=== PATIENT | male | born 1950 | race American Indian/Alaskan Native ===

== ENCOUNTER 2020-06-15 10:06 | Emergency (ER) | payer MEDICARE, MEDICAID ==
--- NOTE | 2020-06-15 10:21 | Emergency Department Report ---
ED Male HPI - General Stated complaint: BLOOD IN URINE Time Seen by Provider: 06/15/20 10:16 Source: patient - History of Present Illness Initial comments: 69-year-old male, history of CHF, prostate enlargement, chronic indwelling Lord, presents to ED with difficulty urinating. Patient states his Lord catheter stopped draining urine. He feels as if his bladder is full. Patient states he normally gets his catheter changed every month, however this Lord catheter has been in for 2 months. Patient states his urologist is at [place]. Patient also reports some hematuria for the last 2 to 3 days. MD Complaint: other -: This morning Severity: moderate Quality: aching Consistency: constant Improves with: none Worsens with: none blood in urine - Related Data Previous Rx's Medication Instructions Recorded Last Taken Type Acetaminophen/Codeine [Tylenol 1 tab PO Q6H PRN #14 tablet 06/13/19 Unknown Rx /Codeine # 3 tab] Furosemide [Lasix TAB] 40 mg PO QDAY #30 tablet 06/13/19 Unknown Rx Isosorb Dinit/Hydralazine [Bidil 1 each PO Q8HR #90 tablet 06/13/19 Unknown Rx 20/37.5MG] Sitagliptin Phosphate [Januvia] 100 mg PO DAILY #30 tablet 06/13/19 Unknown Rx Tamsulosin [Flomax] 0.4 mg PO QDAY #90 cap 06/13/19 Unknown Rx carvediloL [Coreg] 3.125 mg PO BID #60 tablet 06/13/19 Unknown Rx metFORMIN XR [Glucophage XR] 500 mg PO QDDIAB #30 tablet 06/13/19 Unknown Rx Ciprofloxacin HCl [Ciprofloxacin 500 mg PO Q12HR 5 Days #10 tab 06/15/20 Unknown Rx TAB] Phenazopyridine [Pyridium] 200 mg PO TID #6 tab 06/15/20 Unknown Rx Allergies Allergy/AdvReac Type Severity Reaction Status Date / Time No Known Allergies Allergy Verified 06/11/19 13:59 ED Review of Systems ROS: Stated complaint: BLOOD IN URINE Other details as noted in HPI Comment: All other systems reviewed and negative Constitutional: denies: fever Gastrointestinal: abdominal pain Genitourinary: as per HPI, hematuria ED Past Medical Hx - Past Medical History Hx Hypertension: Yes Hx Diabetes: Yes (IDDM) - Surgical History Additional Surgical History: Removal of left great toe toenail 06/06/2019 - Social History Smoking Status: Never Smoker Substance Use Type: None - Medications Home Medications: Home Medications Medication Instructions Recorded Confirmed Last Taken Type Acetaminophen/Codeine [Tylenol 1 tab PO Q6H PRN #14 tablet 06/13/19 Unknown Rx /Codeine # 3 tab] Furosemide [Lasix TAB] 40 mg PO QDAY #30 tablet 06/13/19 Unknown Rx Isosorb Dinit/Hydralazine [Bidil 1 each PO Q8HR #90 tablet 06/13/19 Unknown Rx 20/37.5MG] Sitagliptin Phosphate [Januvia] 100 mg PO DAILY #30 tablet 06/13/19 Unknown Rx Tamsulosin [Flomax] 0.4 mg PO QDAY #90 cap 06/13/19 Unknown Rx carvediloL [Coreg] 3.125 mg PO BID #60 tablet 06/13/19 Unknown Rx metFORMIN XR [Glucophage XR] 500 mg PO QDDIAB #30 tablet 06/13/19 Unknown Rx Ciprofloxacin HCl [Ciprofloxacin 500 mg PO Q12HR 5 Days #10 tab 06/15/20 Unknown Rx TAB] Phenazopyridine [Pyridium] 200 mg PO TID #6 tab 06/15/20 Unknown Rx ED Physical Exam - General General appearance: alert, other (Appears uncomfortable) - Head Head exam: Present: atraumatic, normocephalic - Eye Eye exam: Present: normal appearance - ENT ENT exam: Present: mucous membranes moist - Neck Neck exam: Present: normal inspection - Respiratory Respiratory exam: Present: normal lung sounds bilaterally. Absent: respiratory distress - Cardiovascular Cardiovascular Exam: Present: regular rate, normal rhythm - GI/Abdominal GI/Abdominal exam: Present: soft, tenderness (Suprapubic) - exam: Present: other (Lord catheter in place, appears old and discolored; bladder feels distended) - Extremities Exam Extremities exam: Present: normal inspection - Neurological Exam Neurological exam: Present: alert, oriented X3 - Psychiatric Psychiatric exam: Present: normal affect, normal mood - Skin Skin exam: Present: warm, dry, intact, normal color ED Course Vital Signs 06/15/20 06/15/20 06/15/20 10:08 10:46 11:16 Temperature 97.9 F Pulse Rate 100 H Respiratory 18 18 18 Rate Blood Pressure 173/80 [Right] O2 Sat by Pulse 100 Oximetry 06/15/20 06/15/20 06/15/20 11:51 12:21 13:47 Temperature Pulse Rate 87 98 H Respiratory 18 18 18 Rate Blood Pressure 141/79 176/85 [Right] O2 Sat by Pulse 99 100 100 Oximetry ED Medical Decision Making - Lab Data Result diagrams: 06/15/20 13:38 06/15/20 13:38 - Medical Decision Making 350 cc out w/ initialy changing of Lord catheter; another 400 cc now in Lord bag IV fluids and rocephin given Pt making and draining urine No obstruction Will try outpt abx therapy Advise outpt urology f/u Critical care attestation.: If time is entered above; I have spent that time in minutes in the direct care of this critically ill patient, excluding procedure time. ED Disposition Clinical Impression: Hemorrhagic cystitis Disposition: DC-01 TO HOME OR SELFCARE Is pt being admited?: No Condition: Stable Instructions: Hemorrhagic Cystitis, Urinary Tract Infection, Adult Prescriptions: Ciprofloxacin HCl [Ciprofloxacin TAB] 500 mg PO Q12HR 5 Days #10 tab Phenazopyridine [Pyridium] 200 mg PO TID #6 tab Referrals: PRIMARY CARE, [Primary Care Provider] - 3-5 Days Time of Disposition: 15:51
[2020-06-15] MEDS ORDERED: MORPHINE 2 MG/1 ML INJ IV ONE ×2 (10:34→15:59)
[2020-06-15 13:01] LABS: Color,Urine Red (Yellow)
[2020-06-15 13:03] LABS: Bilirubin,Urine TNR (Negative); Blood,Urine TNR (Negative); PH,Urine TNR (5.0-7.0); Protein,Urine TNR mg/dL (Negative); Urobilinogen,Urine TNR mg/dL (<2.0)
[2020-06-15 13:04] LABS: Ictotest,Urine TNR (Negative); RBC,Urine > 182.0 /HPF (0.0-6.0); WBC,Urine > 182.0 /HPF (0.0-6.0)
[2020-06-15] MEDS ORDERED: cefTRIAXone/NS 1 GM/50 ML 1 GM/50 ML BAG IV ONE (13:24)
[2020-06-15 13:52] LABS: Basophils % (Auto) 0.2 % (0.0-1.8); Eosinophils % (Auto) 0.1 % (0.0-4.3); Hematocrit 38.9 % (35.5-45.6); Hemoglobin 12.6 gm/dl (11.8-15.2); Lymphocytes # (Auto) 1.2 K/mm3 (1.2-5.4); Mean Corpuscular HGB Conc 32 % (32-34); Mean Corpuscular Volume 76 fl (84-94); Monocytes % (Auto) 9.8 % (0.0-7.3); Platelet Count 194 K/mm3 (140-440); Red Blood Count 5.13 M/mm3 (3.65-5.03); Red Cell Distribution Width 18.7 % (13.2-15.2)
[2020-06-15 14:13] LABS: Calcium 8.8 mg/dL (8.4-10.2)
[2020-06-15] MEDS ORDERED: SODIUM CHLORIDE 0.9% 1000 ML 1,000 ML IV ONE (14:16)
--- NOTE | 2020-06-15 15:26 | Cat Scan Report ---
CT ABDOMEN AND PELVIS WITHOUT CONTRAST INDICATION / CLINICAL INFORMATION: HEMATURIA. TECHNIQUE: Axial CT images were obtained through the abdomen and pelvis without IV contrast. All CT scans at [facility] location are performed using CT dose reduction for ALARA by means of automated exposure control. COMPARISON: None available. FINDINGS: LOWER CHEST: There are patchy groundglass density changes throughout the visualized lung bases. LIVER: No significant abnormality. GALLBLADDER: No significant abnormality. PANCREAS: Calcifications are seen throughout the pancreas compatible with chronic pancreatitis. SPLEEN: No significant abnormality. ADRENALS: No significant abnormality. 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 No right-sided nephroureterolithiasis or obstructive uropathy is identified. URINARY BLADDER: A Lord catheter balloon is seen within the urinary bladder. There is high dense mat erial within the urinary bladder compatible with blood products. No wall thickening or discrete mass is identified. REPRODUCTIVE ORGANS: The prostate gland is massively enlarged, measuring 7.6 x 7.6 x 10.4 cm. STOMACH / SMALL BOWEL: No significant abnormality. COLON: No significant abnormality. APPENDIX: No significant abnormality. PERITONEUM: No free fluid. No free air. No fluid collection. LYMPH NODES: No significant adenopathy. AORTA / ARTERIES: Mild atherosclerotic calcification without acute abnormality. IVC / VEINS: No significant abnormality. SKELETAL SYSTEM: No significant abnormality. ADDITIONAL FINDINGS: None. IMPRESSION: 1. High dense material within the urinary bladder lumen is most compatible with blood products. No di screte mass is seen, although cystoscopy may be helpful for further evaluation. 2. Massive prostatomegaly, measuring 10.4 cm in greatest dimension. Correlation with prostate-specifi c antigen is recommended 3. Left-sided nephrectomy changes. No right-sided nephroureterolithiasis or obstructive uropathy. 4. Punctate calcifications throughout the pancreas are compatible with chronic pancreatitis. 5. Patchy groundglass density changes within the lung bases may be chronic. However, an infectious pr ocess including viral and atypical etiologies should be considered. Signer Name: Fernando Arce MD Signed: 06/15/2020 3:21 PM Workstation Name: [id number]
[2020-06-15 16:32] VITALS: BP 159/66
== END 2020-06-15 16:32 | disposition home or self-care (01) ==
LOC: ED 10:06
DX: N30.01 Acute cystitis with hematuria (principal); I10 Essential (primary) hypertension; E11.9 Type 2 diabetes mellitus without complications; Z79.899 Other long term (current) drug therapy
CPT/HCPCS: 36415; 51702; 74176; 80048; 81001; 85025; 87086; 96365; 96375; 99284; J0696; J2270; J7030

== ENCOUNTER 2020-06-16 09:30 | Emergency (ER) | payer MEDICARE ==
--- NOTE | 2020-06-16 10:35 | Emergency Department Report ---
ED Male HPI - General Chief complaint: Urogenital-Male Stated complaint: CATHETER PAIN Time Seen by Provider: 06/16/20 10:23 Source: patient Mode of arrival: Stretcher Limitations: No Limitations - History of Present Illness Initial comments: Patient is 69 years old male brought to the emergency room via EMS for evaluation of urinary retention. Patient has history of benign prostatic hypertrophy with chronic Lord catheter. Patient stated that he was seen here yesterday and his catheter was flushed and he was sent home. He stated that he noticed that is not draining and started having urine retention. Upon arrival to the ER Lord catheter immediately flushed and irrigated by the nurse. Catheter is draining bloody urine. Patient denied any fever or chills. No nausea, vomiting. MD Complaint: other (urine retention) - Related Data Previous Rx's Medication Instructions Recorded Last Taken Type Acetaminophen/Codeine [Tylenol 1 tab PO Q6H PRN #14 tablet 06/13/19 Unknown Rx /Codeine # 3 tab] Furosemide [Lasix TAB] 40 mg PO QDAY #30 tablet 06/13/19 Unknown Rx Isosorb Dinit/Hydralazine [Bidil 1 each PO Q8HR #90 tablet 06/13/19 Unknown Rx 20/37.5MG] Sitagliptin Phosphate [Januvia] 100 mg PO DAILY #30 tablet 06/13/19 Unknown Rx Tamsulosin [Flomax] 0.4 mg PO QDAY #90 cap 06/13/19 Unknown Rx carvediloL [Coreg] 3.125 mg PO BID #60 tablet 06/13/19 Unknown Rx metFORMIN XR [Glucophage XR] 500 mg PO QDDIAB #30 tablet 06/13/19 Unknown Rx Ciprofloxacin HCl [Ciprofloxacin 500 mg PO Q12HR 5 Days #10 tab 06/15/20 Unknown Rx TAB] Phenazopyridine [Pyridium] 200 mg PO TID #6 tab 06/15/20 Unknown Rx Allergies Allergy/AdvReac Type Severity Reaction Status Date / Time No Known Allergies Allergy Verified 06/11/19 13:59 ED Review of Systems ROS: Stated complaint: CATHETER PAIN Other details as noted in HPI Comment: All other systems reviewed and negative Constitutional: denies: chills, fever Respiratory: denies: cough, shortness of breath Cardiovascular: denies: chest pain, palpitations, dyspnea on exertion Gastrointestinal: denies: abdominal pain, nausea, vomiting, diarrhea, constipation, hematemesis, hematochezia Genitourinary: hematuria. denies: testicular pain, testicular mass Musculoskeletal: denies: back pain Neurological: denies: headache, weakness, numbness, paresthesias, confusion ED Past Medical Hx - Past Medical History Hx Hypertension: Yes Hx Diabetes: Yes (IDDM) - Surgical History Additional Surgical History: Removal of left great toe toenail 06/06/2019 - Social History Smoking Status: Never Smoker Substance Use Type: None - Medications Home Medications: Home Medications Medication Instructions Recorded Confirmed Last Taken Type Acetaminophen/Codeine [Tylenol 1 tab PO Q6H PRN #14 tablet 06/13/19 Unknown Rx /Codeine # 3 tab] Furosemide [Lasix TAB] 40 mg PO QDAY #30 tablet 06/13/19 Unknown Rx Isosorb Dinit/Hydralazine [Bidil 1 each PO Q8HR #90 tablet 06/13/19 Unknown Rx 20/37.5MG] Sitagliptin Phosphate [Januvia] 100 mg PO DAILY #30 tablet 06/13/19 Unknown Rx Tamsulosin [Flomax] 0.4 mg PO QDAY #90 cap 06/13/19 Unknown Rx carvediloL [Coreg] 3.125 mg PO BID #60 tablet 06/13/19 Unknown Rx metFORMIN XR [Glucophage XR] 500 mg PO QDDIAB #30 tablet 06/13/19 Unknown Rx Ciprofloxacin HCl [Ciprofloxacin 500 mg PO Q12HR 5 Days #10 tab 06/15/20 Unknown Rx TAB] Phenazopyridine [Pyridium] 200 mg PO TID #6 tab 06/15/20 Unknown Rx ED Physical Exam - General Limitations: No Limitations General appearance: alert, in no apparent distress - Head Head exam: Present: atraumatic, normocephalic, normal inspection - Eye Eye exam: Present: normal appearance - ENT ENT exam: Present: normal exam, normal orophraynx, mucous membranes moist - Neck Neck exam: Present: normal inspection, full ROM. Absent: tenderness, meningismus - Respiratory Respiratory exam: Present: normal lung sounds bilaterally - Cardiovascular Cardiovascular Exam: Present: regular rate, normal rhythm, normal heart sounds - GI/Abdominal GI/Abdominal exam: Present: soft, distended, normal bowel sounds. Absent: tenderness, guarding, rebound, rigid, organomegaly, mass, bruit, pulsatile mass, hernia - exam: Present: normal inspection. Absent: testicular tenderness, scrotal swelling - Extremities Exam Extremities exam: Present: normal inspection, full ROM, normal capillary refill. Absent: pedal edema, calf tenderness - Back Exam Back exam: Present: normal inspection, full ROM. Absent: CVA tenderness (R), CVA tenderness (L) - Neurological Exam Neurological exam: Present: alert, oriented X3, CN II-XII intact - Skin Skin exam: Present: warm, intact ED Course Vital Signs 06/16/20 06/16/20 06/16/20 09:35 10:19 17:08 Temperature 98.2 F Pulse Rate 90 78 83 Respiratory 26 H 18 16 Rate Blood Pressure 180/93 175/82 123/69 [Right] O2 Sat by Pulse 98 98 96 Oximetry ED Medical Decision Making - Lab Data Result diagrams: 06/16/20 11:55 06/16/20 11:55 - Medical Decision Making Patient is 69 years old male brought to the emergency room via EMS for evaluation of urinary retention. Patient has history of benign prostatic hypertrophy with chronic Lord catheter. Patient stated that he was seen here yesterday and his catheter was flushed and he was sent home. He stated that he noticed that is not draining and started having urine retention. Upon arrival to the ER Lord catheter immediately flushed and irrigated by the nurse. Vicki kingston is draining bloody urine. Patient denied any fever or chills. No nausea, vomiting. Catheter has been replaced. Patient flushed with 3 Davis drip however patient still having clots causing obstruction. I discussed the patient with [facility] and stated that they do not have bed. I discussed the patient with Dr. Villarreal, urologist at [facility] and he accepted the patient to be transferred to [facility]. Critical Care Time: Yes Critical care time in (mins) excluding proc time.: 30 Critical care attestation.: If time is entered above; I have spent that time in minutes in the direct care of this critically ill patient, excluding procedure time. ED Disposition Clinical Impression: Acute urinary retention Disposition: DC/TX-70 ANOTHER TYPE [facility] Is pt being admited?: No Condition: Stable Referrals: PRIMARY CARE, [Primary Care Provider] - 3-5 Days
[2020-06-16] MEDS ORDERED: SODIUM CHLORIDE 0.9% 1000 ML 0 ML ONE (11:58)
[2020-06-16 12:09] LABS: Basophils % (Auto) 0.2 % (0.0-1.8); Eosinophils % (Auto) 0.4 % (0.0-4.3); Hematocrit 37.3 % (35.5-45.6); Lymphocytes # (Auto) 1.4 K/mm3 (1.2-5.4); Lymphocytes % (Auto) 16.4 % (13.4-35.0); Mean Corpuscular HGB Conc 32 % (32-34); Mean Corpuscular Volume 77 fl (84-94); Monocytes # (Auto) 0.8 K/mm3 (0.0-0.8); Monocytes % (Auto) 9.4 % (0.0-7.3); Platelet Count 216 K/mm3 (140-440); Red Blood Count 4.86 M/mm3 (3.65-5.03); Red Cell Distribution Width 18.5 % (13.2-15.2)
[2020-06-16 12:25] LABS: BUN/Creatinine Ratio 24; Blood Urea Nitrogen 31 mg/dL (9-20); Calcium 8.8 mg/dL (8.4-10.2); Hemolysis Index 11
[2020-06-16] MEDS ORDERED: SODIUM CHLORIDE 0.9% IRRIG SOLN 2000 ML IR SCH (13:00)
[2020-06-16] MEDS ORDERED: INSULIN REGULAR, HUMAN 100 UNITS/1 ML SUB-Q ONE (16:16)
[2020-06-16 17:10] LABS: INR 1.15 (0.87-1.13); Partial Thromboplastin Time 33.6 Sec. (24.2-36.6)
[2020-06-17] MEDS ORDERED: MORPHINE 2 MG/1 ML INJ IV ONE (09:03)
[2020-06-17] MEDS ORDERED: ONDANSETRON 4 MG/2 ML INJ IV ONE (09:03)
[2020-06-17] MEDS ORDERED: INSULIN LISPRO 100 UNIT/ML SUB-Q ONE (22:27)
[2020-06-18 00:31] VITALS: BP 125/66
== END 2020-06-18 00:53 | disposition other institution (70) ==
LOC: ED 09:30
DX: R33.9 Retention of urine, unspecified (principal); I10 Essential (primary) hypertension; E11.9 Type 2 diabetes mellitus without complications; Z79.899 Other long term (current) drug therapy
CPT/HCPCS: 36415; 51702; 80048; 85025; 85610; 85730; 96372; 96374; 96375; 99291; A4217; J2270; J2405; 82962; J1815; J7030

== ENCOUNTER 2020-07-30 06:44 | Emergency (ER) | payer MEDICARE ==
[2020-07-30] MEDS ORDERED: SODIUM CHLORIDE 0.9% IRR 1,000 ML BOTTLE IR ONE (07:45)
[2020-07-30] MEDS ORDERED: oxyCODONE /ACETAMINOPHEN 5-325MG TAB PO ONE (07:45)
--- NOTE | 2020-07-30 07:46 | Emergency Department Report ---
ED General Adult HPI - General Chief complaint: Urogenital-Male Stated complaint: BLOOD IN URINE PUI?: No Time Seen by Provider: 07/30/20 07:37 Source: patient, EMS ( EMS documentation not available at time of chart dicta tion ), RN notes reviewed, old records reviewed Mode of arrival: Wheelchair Limitations: No Limitations - History of Present Illness Initial comments: The patient was evaluated in the emergency department for symptoms described in the history of present illness. He/she was evaluated in the context of the [facility], which necessitated consideration that the patient might be at risk for infection with the virus that causes COVID-19. Institutional protocols and algorithms that pertain to the evaluation of patients at risk for COVID-19 are in a state of rapid change based on information released by regulatory bodies including the CDC and federal and state organizations. These policies and algorithms were followed during the patient's care in the emergency department. Please note that these policies, procedures and recommendations changed on a rapid basis. Urology: Dr. Mendiola This is a pleasant 70-year-old gentleman. He has a history of BPH, diabetes and hypertension, and indwelling Lord catheter. At the beginning of last month, he was transferred to [facility] for persistent hematuria. He presents to the ER today with a complaint of initially bloody drainage from his Lord catheter, and no blockage of his Lord catheter with suprapubic pressure and discomfort. He denies headache, neck pain, chest pain, shortness of breath, vomiting, diaphoresis, loss of taste and smell, and testicular pain. This is similar to prior presentation from last month. Suprapubic pain is achy and sharp, increases with palpation and decreases with rest. He is asking to have his Lord catheter drained. His symptoms have started within the past 12 hours. -: Gradual, hour(s) Location: abdomen Radiation: non-radiation Severity scale (0 -10): 10 Consistency: constant Improves with: rest Worsens with: movement - Related Data Previous Rx's Medication Instructions Recorded Last Taken Type Furosemide [Lasix TAB] 40 mg PO QDAY #30 tablet 06/13/19 Unknown Rx Isosorb Dinit/Hydralazine [Bidil 1 each PO Q8HR #90 tablet 06/13/19 Unknown Rx 20/37.5MG] Sitagliptin Phosphate [Januvia] 100 mg PO DAILY #30 tablet 06/13/19 Unknown Rx Tamsulosin [Flomax] 0.4 mg PO QDAY #90 cap 06/13/19 Unknown Rx carvediloL [Coreg] 3.125 mg PO BID #60 tablet 06/13/19 Unknown Rx metFORMIN XR [Glucophage XR] 500 mg PO QDDIAB #30 tablet 06/13/19 Unknown Rx Ciprofloxacin HCl [Ciprofloxacin 500 mg PO Q12HR 5 Days #10 tab 06/15/20 Unknown Rx TAB] Phenazopyridine [Pyridium] 200 mg PO TID #6 tab 06/15/20 Unknown Rx Magnesium Oxide 400 mg PO QDAY #30 tablet 07/30/20 Unknown Rx Allergies Allergy/AdvReac Type Severity Reaction Status Date / Time No Known Allergies Allergy Verified 06/11/19 13:59 ED Review of Systems ROS: Stated complaint: BLOOD IN URINE Other details as noted in HPI Constitutional: denies: fever Eyes: denies: eye discharge ENT: denies: congestion Respiratory: denies: cough Cardiovascular: denies: chest pain Gastrointestinal: abdominal pain. denies: nausea, vomiting Genitourinary: hematuria. denies: urgency, dysuria, frequency, testicular pain Musculoskeletal: denies: back pain Skin: denies: lesions Neurological: weakness (Global weakness, but no focal weakness) Hematological/Lymphatic: denies: easy bleeding ED Past Medical Hx - Past Medical History Previous Medical History?: Yes Hx Hypertension: Yes Hx Diabetes: Yes (IDDM) - Surgical History Past Surgical History?: Yes Additional Surgical History: Removal of left great toe toenail 06/06/2019 - Social History Smoking Status: Former Smoker Substance Use Type: None - Medications Home Medications: Home Medications Medication Instructions Recorded Confirmed Last Taken Type Furosemide [Lasix TAB] 40 mg PO QDAY #30 tablet 06/13/19 Unknown Rx Isosorb Dinit/Hydralazine [Bidil 1 each PO Q8HR #90 tablet 06/13/19 Unknown Rx 20/37.5MG] Sitagliptin Phosphate [Januvia] 100 mg PO DAILY #30 tablet 06/13/19 Unknown Rx Tamsulosin [Flomax] 0.4 mg PO QDAY #90 cap 06/13/19 Unknown Rx carvediloL [Coreg] 3.125 mg PO BID #60 tablet 06/13/19 Unknown Rx metFORMIN XR [Glucophage XR] 500 mg PO QDDIAB #30 tablet 06/13/19 Unknown Rx Ciprofloxacin HCl [Ciprofloxacin 500 mg PO Q12HR 5 Days #10 tab 06/15/20 Unknown Rx TAB] Phenazopyridine [Pyridium] 200 mg PO TID #6 tab 06/15/20 Unknown Rx Magnesium Oxide 400 mg PO QDAY #30 tablet 07/30/20 Unknown Rx ED Physical Exam - General Limitations: No Limitations General appearance: alert, anxious, in distress - Head Head exam: Present: atraumatic, normocephalic - Eye Eye exam: Present: normal appearance, EOMI. Absent: nystagmus - ENT ENT exam: Present: normal exam, normal orophraynx, mucous membranes moist, normal external ear exam - Neck Neck exam: Present: normal inspection, full ROM. Absent: tenderness, meningismus - Respiratory Respiratory exam: Present: normal lung sounds bilaterally. Absent: respiratory distress, wheezes, rales, rhonchi, stridor, decreased breath sounds - Cardiovascular Cardiovascular Exam: Present: regular rate, normal rhythm, normal heart sounds. Absent: bradycardia, tachycardia, irregular rhythm, systolic murmur, diastolic murmur, rubs, gallop - GI/Abdominal GI/Abdominal exam: Present: soft, distended (Suprapubic distention.), tenderness (Suprapubic tenderness). Absent: guarding, rebound, rigid, pulsatile mass - Rectal Rectal exam: Present: deferred - exam: Present: normal inspection. Absent: circumcision (The patient is uncircumcised) External exam: Present: normal external exam, other (Lord catheter in place, minimal bloody drainage noted in tube, and bag) - Extremities Exam Extremities exam: Present: normal inspection, full ROM, other (2+ pulses noted in the bilateral upper and lower extremities. There is no palpable cord. negative Homans sign. Muscular compartments are soft. The pelvis is stable.). Absent: pedal edema, calf tenderness - Back Exam Back exam: Present: normal inspection, full ROM. Absent: tenderness, CVA tenderness (R), muscle spasm, paraspinal tenderness, vertebral tenderness - Neurological Exam Neurological exam: Present: alert, other (No facial droop. Tongue midline. Ext raocular movements intact bilaterally. Facial sensation intact to light touch in V1, V2, V3 distribution bilaterally. 5 and a 5 strength in 4 extremities. Sensation intact to light touch in 4 extremities.). Absent: motor sensory deficit - Psychiatric Psychiatric exam: Present: anxious - Skin Skin exam: Present: warm, dry, intact, normal color. Absent: rash ED Course Vital Signs 07/30/20 07/30/20 07/30/20 06:54 07:38 07:45 Temperature 98 F Pulse Rate 89 96 H 92 H Respiratory 22 16 19 Rate Blood Pressure 128/69 Blood Pressure 114/80 [Right] O2 Sat by Pulse 100 100 Oximetry O2 Sat by Pulse Oximetry [ Digit-Finger] 07/30/20 07/30/20 07/30/20 08:01 08:09 08:15 Temperature Pulse Rate 94 H 94 H Respiratory 18 18 20 Rate Blood Pressure 128/69 164/89 Blood Pressure [Right] O2 Sat by Pulse 100 100 Oximetry O2 Sat by Pulse Oximetry [ Digit-Finger] 07/30/20 07/30/20 07/30/20 08:31 08:45 09:01 Temperature Pulse Rate 93 H 86 93 H Respiratory 12 18 17 Rate Blood Pressure 128/69 147/74 164/89 Blood Pressure [Right] O2 Sat by Pulse 91 97 96 Oximetry O2 Sat by Pulse Oximetry [ Digit-Finger] 07/30/20 07/30/20 07/30/20 09:09 09:15 09:31 Temperature Pulse Rate 91 H 91 H Respiratory 18 16 16 Rate Blood Pressure 158/88 158/88 Blood Pressure [Right] O2 Sat by Pulse 99 99 Oximetry O2 Sat by Pulse Oximetry [ Digit-Finger] 07/30/20 07/30/20 07/30/20 09:45 10:01 10:15 Temperature Pulse Rate 89 92 H 94 H Respiratory 18 16 21 Rate Blood Pressure 148/83 148/83 157/78 Blood Pressure [Right] O2 Sat by Pulse 99 98 100 Oximetry O2 Sat by Pulse Oximetry [ Digit-Finger] 07/30/20 07/30/20 07/30/20 10:31 10:45 11:01 Temperature Pulse Rate 87 80 93 H Respiratory 14 12 20 Rate Blood Pressure 157/78 128/68 128/68 Blood Pressure [Right] O2 Sat by Pulse 99 99 99 Oximetry O2 Sat by Pulse Oximetry [ Digit-Finger] 07/30/20 07/30/20 07/30/20 11:15 11:31 11:45 Temperature Pulse Rate 86 82 87 Respiratory 17 12 14 Rate Blood Pressure 150/97 150/97 135/71 Blood Pressure [Right] O2 Sat by Pulse 99 99 100 Oximetry O2 Sat by Pulse Oximetry [ Digit-Finger] 07/30/20 07/30/20 07/30/20 12:01 12:15 12:31 Temperature Pulse Rate 83 82 82 Respiratory 16 15 19 Rate Blood Pressure 135/71 131/78 131/78 Blood Pressure [Right] O2 Sat by Pulse 100 98 100 Oximetry O2 Sat by Pulse Oximetry [ Digit-Finger] 07/30/20 07/30/20 12:45 13:21 Temperature Pulse Rate 81 Respiratory 19 Rate Blood Pressure 137/73 Blood Pressure [Right] O2 Sat by Pulse 99 Oximetry O2 Sat by Pulse 99 Oximetry [ Digit-Finger] - Reevaluation(s) Reevaluation #1: 07/30/20 08:03 Differential diagnosis, including but not limited to: Hematuria, obstructive clots, hemorrhagic cystitis, electrolyte derangement, renal insufficiency Assessment and plan: 70-year-old gentleman with indwelling Lord catheter, known prostatomegaly, history of nephrectomy, left side, with recurrent hematuria, and now obstructive uropathy, likely secondary to clots. We will treat his pain and symptoms. Nursing team to irrigate Lord catheter with 1 L, and if unsuccessful, we will initiate Davis drip. Check appropriate laboratory studies and urinalysis. Recent urine culture negative. Do not suspect urinary tract infection at this time, I suspect exacerbation of underlying bladder clots and spasm. 07/30/20 08:[address] scan of the abdomen pelvis from last month reviewed and appreciated. Patient does not endorse symptoms of pneumonia or COVID-19 at this time. At this point time, do not see indication to repeat CT scan of the abdomen pelvis. 07/30/20 08:51 Nursing team has irrigated bladder approximately 1 L. Patient is now not obstructed, and is draining dark red blood from his Lord catheter, which is not clearing up. We will initiate continuous bladder irrigation. We will start Davis drip. As a courtesy, we will reach out to his primary urologist, Dr. Mendiola. Microcytic anemia, new when compared to prior, likely secondary to related bleeding. Patient is not having chest pain no rectal bleeding at this time, this point time, does not meet criteria or require packed red blood cell transfusion. 07/30/20 08:52 07/30/20 09:51 Patient now states he has not seen Dr. Mendiola as of yet, he is not an establ ished patient, and his first visit is this upcoming Sunday. Therefore, patient is not an established patient of Dr. Mendiola. I have made multiple requests to nursing team and ancillary staff to initiate Davis drip. I am still waiting for them to initiate the Davis drip. In addition, secondary to delays in the lab, basic metabolic panel has not resulted. All of these aforementioned delays have led to a delay in patient's disposition. If patient clears up with initial Davis drip, I would consider him suitable for discharge with outpatient follow-up with his urologist. If he does not clear up, as I do not have urology available for ER consultation, we would have to consider transfer to another facility for services not available at this hospital. 07/30/20 10:52 Patient is now currently on Davis drip. His hematuria appears to be clearing up. 07/30/20 11:26 Nursing team has asked me to evaluate the triple-lumen catheter, secondary to lack of flow. I have repeatedly instilled sterile saline, and gently withdrawn with a 60 cc Aly syringe, multiple times, and have evacuated multiple blood clots, and fluid from the bladder. His hematuria is now significantly clearing up, and he feels somewhat improved. 07/30/20 13:20 Hematuria has resolved. Repeat Accu-Chek is improved at 243. Patient feels improved. He is requested that the triple-lumen remain inserted, therefore, nursing team to block off 1 port, and attached leg bag to the second port. He is reliable to follow-up with his outpatient urologist next week. He is resting comfortably in his stretcher at this time in no acute distress. \ Vital Signs 07/30/20 07/30/20 07/30/20 06:54 07:38 07:45 Temperature 98 F Pulse Rate 89 96 H 92 H Respiratory 22 16 19 Rate Blood Pressure 128/69 Blood Pressure 114/80 [Right] O2 Sat by Pulse 100 100 Oximetry O2 Sat by Pulse Oximetry [ Digit-Finger] 07/30/20 07/30/20 07/30/20 08:01 08:09 08:15 Temperature Pulse Rate 94 H 94 H Respiratory 18 18 20 Rate Blood Pressure 128/69 164/89 Blood Pressure [Right] O2 Sat by Pulse 100 100 Oximetry O2 Sat by Pulse Oximetry [ Digit-Finger] 07/30/20 07/30/20 07/30/20 08:31 08:45 09:01 Temperature Pulse Rate 93 H 86 93 H Respiratory 12 18 17 Rate Blood Pressure 128/69 147/74 164/89 Blood Pressure [Right] O2 Sat by Pulse 91 97 96 Oximetry O2 Sat by Pulse Oximetry [ Digit-Finger] 07/30/20 07/30/20 07/30/20 09:09 09:15 09:31 Temperature Pulse Rate 91 H 91 H Respiratory 18 16 16 Rate Blood Pressure 158/88 158/88 Blood Pressure [Right] O2 Sat by Pulse 99 99 Oximetry O2 Sat by Pulse Oximetry [ Digit-Finger] 07/30/20 07/30/20 07/30/20 09:45 10:01 10:15 Temperature Pulse Rate 89 92 H 94 H Respiratory 18 16 21 Rate Blood Pressure 148/83 148/83 157/78 Blood Pressure [Right] O2 Sat by Pulse 99 98 100 Oximetry O2 Sat by Pulse Oximetry [ Digit-Finger] 07/30/20 07/30/20 07/30/20 10:31 10:45 11:01 Temperature Pulse Rate 87 80 93 H Respiratory 14 12 20 Rate Blood Pressure 157/78 128/68 128/68 Blood Pressure [Right] O2 Sat by Pulse 99 99 99 Oximetry O2 Sat by Pulse Oximetry [ Digit-Finger] 07/30/20 07/30/20 07/30/20 11:15 11:31 11:45 Temperature Pulse Rate 86 82 87 Respiratory 17 12 14 Rate Blood Pressure 150/97 150/97 135/71 Blood Pressure [Right] O2 Sat by Pulse 99 99 100 Oximetry O2 Sat by Pulse Oximetry [ Digit-Finger] 07/30/20 07/30/20 07/30/20 12:01 12:15 12:31 Temperature Pulse Rate 83 82 82 Respiratory 16 15 19 Rate Blood Pressure 135/71 131/78 131/78 Blood Pressure [Right] O2 Sat by Pulse 100 98 100 Oximetry O2 Sat by Pulse Oximetry [ Digit-Finger] 07/30/20 07/30/20 12:45 13:21 Temperature Pulse Rate 81 Respiratory 19 Rate Blood Pressure 137/73 Blood Pressure [Right] O2 Sat by Pulse 99 Oximetry O2 Sat by Pulse 99 Oximetry [ Digit-Finger] 07/30/20 13:37 - Pulse Oximetry Interpretation Digit-Finger Initial Pulse Oximetry Readin O2 Sat by Pulse Oximetry: 99 Actions Taken: none ED Medical Decision Making - Lab Data Result diagrams: 07/30/20 07:51 07/30/20 07:51 Vital Signs 07/30/20 06:54 Temperature 98 F Pulse Rate 89 Respiratory 22 Rate Blood Pressure 114/80 [Right] O2 Sat by Pulse 100 Oximetry Vital Signs 07/30/20 07/30/20 06:54 08:09 Temperature 98 F Pulse Rate 89 Respiratory 22 18 Rate Blood Pressure 114/80 [Right] O2 Sat by Pulse 100 Oximetry Lab Results 07/30/20 07/30/20 Range/Units 07:51 07:51 WBC 11.3 H (4.5-11.0) K/mm3 RBC 3.83 (3.65-5.03) M/mm3 Hgb 8.8 L (11.8-15.2) gm/dl Hct 28.3 L (35.5-45.6) % MCV 74 L (84-94) fl MCH 23 L (28-32) pg MCHC 31 L (32-34) % RDW 16.6 H (13.2-15.2) % Plt Count 204 (140-440) K/mm3 PT 14.1 (12.2-14.9) Sec. INR 1.10 (0.87-1.13) Lab Results 07/30/20 07/30/20 07/30/20 Range/Units 07:51 07:51 07:51 WBC 11.3 H (4.5-11.0) K/mm3 RBC 3.83 (3.65-5.03) M/mm3 Hgb 8.8 L (11.8-15.2) gm/dl Hct 28.3 L (35.5-45.6) % MCV 74 L (84-94) fl MCH 23 L (28-32) pg MCHC 31 L (32-34) % RDW 16.6 H (13.2-15.2) % Plt Count 204 (140-440) K/mm3 PT 14.1 (12.2-14.9) Sec. INR 1.10 (0.87-1.13) Sodium 137 (137-145) mmol/L Potassium 4.4 (3.6-5.0) mmol/L Chloride 103.3 (98-107) mmol/L Carbon Dioxide 22 (22-30) mmol/L Anion Gap 16 mmol/L BUN 12 (9-20) mg/dL Creatinine 1.5 H (0.8-1.3) mg/dL Estimated GFR 56 ml/min BUN/Creatinine Ratio 8 % Glucose 359 H (75-100) mg/dL Calcium 9.4 (8.4-10.2) mg/dL Magnesium 1.40 L (1.7-2.3) mg/dL Total Creatine Kinase 117 (55-170) units/L - Radiology Data Radiology results: report reviewed, image reviewed Print Report Referring Physician: JEFFERSON ELLISON Patient Name: CSEAR LOCKHART Date of : 1950 Sex: Male Report Date: 2020-06-15 Report Status: [place] [address] Cat Scan Report Signed Patient: CESAR LOCKHART MR#: [id number] : 1950 Acct:[id number] Age/Sex: 69 / M ADM Date: 06/15/20 Loc: ED Attending Dr: Ordering Physician: JEFFERSON ELLISON MD Date of Service: 06/15/20 Procedure(s): CT abdomen pelvis wo con Accession Number(s): [id number] cc: JEFFERSON ELLISON MD CT ABDOMEN AND PELVIS WITHOUT CONTRAST INDICATION / CLINICAL INFORMATION: HEMATURIA. TECHNIQUE: Axial CT images were obtained through the abdomen and pelvis without IV contrast. All CT scans at this location are performed using CT dose reduction for ALARA by means of automated exposure control. COMPARISON: None available. FINDINGS: LOWER CHEST: There are patchy groundglass density changes throughout the visualized lung bases. LIVER: No significant abnormality. GALLBLADDER: No significant abnormality. PANCREAS: Calcifications are seen throughout the pancreas compatible with chronic pancreatitis. SPLEEN: No significant abnormality. ADRENALS: No significant abnormality. 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 No right-sided nephroureterolithiasis or obstructive uropathy is identified. URINARY BLADDER: A Lord catheter balloon is seen within the urinary bladder. There is high dense material within the urinary bladder compatible with blood products. No wall thickening or discrete mass is identified. REPRODUCTIVE ORGANS: The prostate gland is massively enlarged, measuring 7.6 x 7.6 x 10.4 cm. STOMACH / SMALL BOWEL: No significant abnormality. COLON: No significant abnormality. APPENDIX: No significant abnormality. PERITONEUM: No free fluid. No free air. No fluid collection. LYMPH NODES: No significant adenopathy. AORTA / ARTERIES: Mild atherosclerotic calcification without acute abnormality. IVC / VEINS: No significant abnormality. SKELETAL SYSTEM: No significant abnormality. ADDITIONAL FINDINGS: None. IMPRESSION: 1. High dense material within the urinary bladder lumen is most compatible with blood products. No discrete mass is seen, although cystoscopy may be helpful for further evaluation. 2. Massive prostatomegaly, measuring 10.4 cm in greatest dimension. Correlation with prostate-specific antigen is recommended 3. Left-sided nephrectomy changes. No right-sided nephroureterolithiasis or obstructive uropathy. 4. Punctate calcifications throughout the pancreas are compatible with chronic pancreatitis. 5. Patchy groundglass density changes within the lung bases may be chronic. However, an infectious process including viral and atypical etiologies should be considered. Signer Name: Junior Arce MD Signed: 06/15/2020 3:21 PM Workstation Name: [id number] Transcribed By: KAREN Dictated By: JUNIOR ARCE Electronically Authenticated By: JUNIOR ARCE Signed Date/Time: 06/15/20 1521 DD/ 1514 TD/TT: Critical care attestation.: If time is entered above; I have spent that time in minutes in the direct care of this critically ill patient, excluding procedure time. ED Disposition Clinical Impression: Enlarged prostate, History of nephrectomy, left, Hypomagnesemia, Hyperglycemia Hematuria Qualifiers: Hematuria type: gross Qualified Code(s): R31.0 - Gross hematuria Lord catheter problem Qualifiers: Encounter type: subsequent encounter Qualified Code(s): T83.9XXD - Unspecified complication of genitourinary prosthetic device, implant and graft, subsequent encounter Disposition: DC-01 TO HOME OR SELFCARE Is pt being admited?: No Does the pt Need Aspirin: No Condition: Good Instructions: Hypomagnesemia, Hematuria, Adult Additional Instructions: Avoid consumption of Motrin, ibuprofen, Naprosyn, Aleve. Take the magnesium supplementation as directed. Follow-up with your urologist on Sunday, Dr. Mendiola, as scheduled. Keep the Lord catheter attached to a leg bag. Please follow-up with your primary care doctor for your diabetes and hyperglycemia within the next month. Make certain to take your diabetic medications, And consume a diabetic appropriate diet. Please return to the emergency room right away with new pain, worsened pain, migration of pain, projectile vomiting, change in mental status, confusion, inability to tolerate liquid feeds, new, worsened or different symptoms not present on the initial emergency room evaluation. Cultures were sent today, and results will be available in the next 3 to 5 days. Please have your primary care doctor or urologist contact the medical records department to obtain culture results. Prescriptions: Magnesium Oxide 400 mg PO QDAY #30 tablet Referrals: LAURIE MENDIOLA MD [Staff Physician] - 08/02/20
[2020-07-30] MEDS ORDERED: SODIUM CHLORIDE 0.9% IRR 500 ML BOTTLE IR SCH (08:00)
[2020-07-30 08:16] LABS: Hematocrit 28.3 % (35.5-45.6); Hemoglobin 8.8 gm/dl (11.8-15.2); Mean Corpuscular HGB Conc 31 % (32-34); Mean Corpuscular Volume 74 fl (84-94); Platelet Count 204 K/mm3 (140-440); Red Blood Count 3.83 M/mm3 (3.65-5.03); Red Cell Distribution Width 16.6 % (13.2-15.2)
[2020-07-30 08:30] LABS: INR 1.1 (0.87-1.13)
[2020-07-30] MEDS ORDERED: .SODIUM CHLORIDE 0.9% IRRIG SOLN 3000 ML IR ONE (08:49)
[2020-07-30] MEDS ORDERED: SODIUM CHLORIDE 0.9% IRRIG SOLN 2000 ML IR ONE (10:00)
[2020-07-30 10:22] LABS: Calcium 9.4 mg/dL (8.4-10.2)
[2020-07-30] MEDS ORDERED: MAGNESIUM OXIDE 400 MG TAB PO STA (10:24)
[2020-07-30] MEDS ORDERED: INSULIN REGULAR, HUMAN 100 UNITS/1 ML SUB-Q ONE (11:01)
[2020-07-30 13:16] LABS: Bilirubin,Urine NEG (Negative); Blood,Urine LG (Negative); Color,Urine Red (Yellow); Urobilinogen,Urine < 2.0 mg/dL (<2.0)
[2020-07-30 13:20] LABS: RBC,Urine > 182.0 /HPF (0.0-6.0); WBC,Urine > 182.0 /HPF (0.0-6.0)
[2020-07-30 13:37] VITALS: BP 137/73
== END 2020-07-30 13:50 | disposition home or self-care (01) ==
LOC: ED 06:44
DX: N40.0 Benign prostatic hyperplasia without lower urinary tract symptoms (principal); T83.098A Other mechanical complication of other urinary catheter, initial encounter; E83.42 Hypomagnesemia; E11.9 Type 2 diabetes mellitus without complications; I10 Essential (primary) hypertension
CPT/HCPCS: 36415; 80048; 81001; 82550; 82962; 83735; 85027; 85610; 87076; 87086; 87186; 99284; A4217; J1815

== ENCOUNTER 2020-07-31 02:17 | Emergency (ER) | payer MEDICARE ==
[2020-07-31] MEDS ORDERED: SODIUM CHLORIDE 0.9% IRRIG SOLN 2000 ML IR SCH (03:00)
[2020-07-31] MEDS ORDERED: SODIUM CHLORIDE 0.9% 1000 ML 1,000 ML ONE ×2 (03:02→03:03)
[2020-07-31] MEDS ORDERED: SODIUM CHLORIDE IRRI 500 ML 500 ML IR ONE (03:17)
[2020-07-31 04:12] VITALS: BP 133/64
--- NOTE | 2020-07-31 04:19 | Emergency Department Report ---
ED Male HPI - General Chief complaint: Tube Replacement Stated complaint: SANTOS BLOCKAGE Time Seen by Provider: 07/31/20 02:33 Source: EMS Mode of arrival: Ambulatory Limitations: No Limitations - History of Present Illness Initial comments: Patient is a 70-year-old F M[place] male who is presenting with obstruction of his Santos catheter. Patient was here yesterday and had to have a Davis drip to clear clots from his bladder. Patient states over the last 3 to 4 hours he has had no drainage from the Santos catheter that was replaced yesterday and he is having suprapubic pain. Pain is estimated 6 out of 10 in severity. Denies nausea vomiting fevers or chills. Patient has an appointment to see urology in 2 days. - Related Data Previous Rx's Medication Instructions Recorded Last Taken Type Furosemide [Lasix TAB] 40 mg PO QDAY #30 tablet 06/13/19 Unknown Rx Isosorb Dinit/Hydralazine [Bidil 1 each PO Q8HR #90 tablet 06/13/19 Unknown Rx 20/37.5MG] Sitagliptin Phosphate [Januvia] 100 mg PO DAILY #30 tablet 06/13/19 Unknown Rx Tamsulosin [Flomax] 0.4 mg PO QDAY #90 cap 06/13/19 Unknown Rx carvediloL [Coreg] 3.125 mg PO BID #60 tablet 06/13/19 Unknown Rx metFORMIN XR [Glucophage XR] 500 mg PO QDDIAB #30 tablet 06/13/19 Unknown Rx Ciprofloxacin HCl [Ciprofloxacin 500 mg PO Q12HR 5 Days #10 tab 06/15/20 Unknown Rx TAB] Phenazopyridine [Pyridium] 200 mg PO TID #6 tab 06/15/20 Unknown Rx Magnesium Oxide 400 mg PO QDAY #30 tablet 07/30/20 Unknown Rx Allergies Allergy/AdvReac Type Severity Reaction Status Date / Time No Known Allergies Allergy Verified 06/11/19 13:59 ED Review of Systems ROS: Stated complaint: SANTOS BLOCKAGE Other details as noted in HPI Comment: All other systems reviewed and negative ED Past Medical Hx - Past Medical History Previous Medical History?: Yes Hx Hypertension: Yes Hx CVA: No Hx Heart Attack/AMI: No Hx Congestive Heart Failure: No Hx Diabetes: Yes (IDDM) Hx Deep Vein Thrombosis: No Hx Pulmonary Embolism: No Hx GERD: No Hx Liver Disease: No Hx Renal Disease: No Hx of Cancer: No Hx Sickle Cell Disease: No Hx Arthritis: No Hx Headaches / Migraines: No Hx Seizures: No Hx Kidney Stones: No Hx Psychiatric Treatment: No Hx Asthma: No Hx COPD: No Hx Tuberculosis: No Hx Dementia: No Hx HIV: No - Surgical History Additional Surgical History: Removal of left great toe toenail 06/06/2019 - Social History Smoking Status: Never Smoker Substance Use Type: None - Medications Home Medications: Home Medications Medication Instructions Recorded Confirmed Last Taken Type Furosemide [Lasix TAB] 40 mg PO QDAY #30 tablet 06/13/19 Unknown Rx Isosorb Dinit/Hydralazine [Bidil 1 each PO Q8HR #90 tablet 06/13/19 Unknown Rx 20/37.5MG] Sitagliptin Phosphate [Januvia] 100 mg PO DAILY #30 tablet 06/13/19 Unknown Rx Tamsulosin [Flomax] 0.4 mg PO QDAY #90 cap 06/13/19 Unknown Rx carvediloL [Coreg] 3.125 mg PO BID #60 tablet 06/13/19 Unknown Rx metFORMIN XR [Glucophage XR] 500 mg PO QDDIAB #30 tablet 06/13/19 Unknown Rx Ciprofloxacin HCl [Ciprofloxacin 500 mg PO Q12HR 5 Days #10 tab 06/15/20 Unknown Rx TAB] Phenazopyridine [Pyridium] 200 mg PO TID #6 tab 06/15/20 Unknown Rx Magnesium Oxide 400 mg PO QDAY #30 tablet 07/30/20 Unknown Rx ED Physical Exam - General Limitations: No Limitations General appearance: alert, in no apparent distress - Head Head exam: Present: atraumatic, normocephalic - Eye Eye exam: Present: normal appearance, PERRL, EOMI - ENT ENT exam: Present: mucous membranes moist - Neck Neck exam: Present: normal inspection - Respiratory Respiratory exam: Present: normal lung sounds bilaterally. Absent: respiratory distress, wheezes, rales, rhonchi, stridor - Cardiovascular Cardiovascular Exam: Present: regular rate, normal rhythm. Absent: systolic murmur, diastolic murmur, rubs, gallop - GI/Abdominal GI/Abdominal exam: Present: soft, tenderness (Suprapubic), normal bowel sounds. Absent: distended, guarding, rebound - Rectal Rectal exam: Present: deferred - Extremities Exam Extremities exam: Present: normal inspection - Back Exam Back exam: Present: normal inspection - Neurological Exam Neurological exam: Present: alert, oriented X3 - Psychiatric Psychiatric exam: Present: normal affect, normal mood - Skin Skin exam: Present: warm, dry, intact, normal color. Absent: rash ED Course Vital Signs 07/31/20 07/31/20 02:47 04:11 Temperature 98.0 F Pulse Rate 94 H 99 H Respiratory 18 18 Rate Blood Pressure 123/58 Blood Pressure 133/64 [Right] O2 Sat by Pulse 98 98 Oximetry ED Medical Decision Making - Medical Decision Making Three-way Davis Santos catheter was placed and the patient had irrigation with 2 L. Patient had clearing of his urine. Patient is stable for discharge. We will leave the three-way catheter in place in case the patient gets obstructed again. Critical care attestation.: If time is entered above; I have spent that time in minutes in the direct care of this critically ill patient, excluding procedure time. ED Disposition Clinical Impression: Urinary retention Santos catheter problem Qualifiers: Encounter type: subsequent encounter Qualified Code(s): T83.9XXD - Unspecified complication of genitourinary prosthetic device, implant and graft, subsequent encounter Hematuria Qualifiers: Hematuria type: gross Qualified Code(s): R31.0 - Gross hematuria Disposition: -01 TO HOME OR SELFCARE Is pt being admited?: No Does the pt Need Aspirin: No Condition: Stable Instructions: Acute Urinary Retention, Male Referrals: LAURIE FAUSTIN MD [Staff Physician] - 3-5 Days Time of Disposition: 04:19
== END 2020-07-31 04:41 | disposition home or self-care (01) ==
LOC: ED 02:17
DX: R33.9 Retention of urine, unspecified (principal); R31.9 Hematuria, unspecified; T83.9XXA Unspecified complication of genitourinary prosthetic device, implant and graft, initial encounter; I10 Essential (primary) hypertension; E11.9 Type 2 diabetes mellitus without complications; Z79.899 Other long term (current) drug therapy
CPT/HCPCS: 51702; 99283; J7030

== ENCOUNTER 2020-11-19 04:03 | Observation (INO) | payer MEDICARE ==
--- NOTE | 2020-11-19 04:30 | Emergency Department Report ---
ED Male HPI - General Chief complaint: Urogenital-Male Stated complaint: CLOGGED CATHETER Time Seen by Provider: 11/19/20 04:25 Source: patient, EMS Mode of arrival: Ambulatory Limitations: Physical Limitation - History of Present Illness Initial comments: Patient is a 70-year-old male presents emergency room with complaints of severe abdominal pain and a clogged [place] catheter and blood in his catheter. Patient states that he has had difficulties with his catheter over the last 4 days. Patient states that he finally blocked off today and he started having abdominal pain. Patient states he is also noted hematuria in the urine bag that started today. Patient denies fever and chills. Patient denies chest pain and shortness of breath. Patient denies nausea vomiting. Patient states he had a indwelling catheter many times. Patient states he is has a clogged catheter many times as well. Patient denies recent travel. Patient denies recent international travel. Patient denies exposure to the novel coronavirus. Patient denies sick contacts. Patient denies fever and chills. Patient denies cough. Patient denies diarrhea. Patient denies coming in contact with anybody with symptoms of the novel coronavirus. Patient brought in by EMS. Patient found to have an elevated blood sugar with EMS. Patient is not a diabetic. MD Complaint: other (Urinary retention and lower abdominal pain. clogged catheter.) -: Gradual Location: abdomen Radiation: none Severity: severe Severity scale (0 -10): 9 Quality: sharp Consistency: constant Improves with: rest Worsens with: palpation, movement indwelling catheter urinary retention, blood in urine. denies: discharge, swelling, mass, rash, dysuria, fever, nausea/vomiting, incontinence - Related Data Previous Rx's Medication Instructions Recorded Last Taken Type Furosemide [Lasix TAB] 40 mg PO QDAY #30 tablet 06/13/19 Unknown Rx Isosorb Dinit/Hydralazine [Bidil 1 each PO Q8HR #90 tablet 06/13/19 Unknown Rx 20/37.5MG] Sitagliptin Phosphate [Januvia] 100 mg PO DAILY #30 tablet 06/13/19 Unknown Rx Tamsulosin [Flomax] 0.4 mg PO QDAY #90 cap 06/13/19 Unknown Rx carvediloL [Coreg] 3.125 mg PO BID #60 tablet 06/13/19 Unknown Rx metFORMIN XR [Glucophage XR] 500 mg PO QDDIAB #30 tablet 06/13/19 Unknown Rx Ciprofloxacin HCl [Ciprofloxacin 500 mg PO Q12HR 5 Days #10 tab 06/15/20 Unknown Rx TAB] Phenazopyridine [Pyridium] 200 mg PO TID #6 tab 06/15/20 Unknown Rx Magnesium Oxide 400 mg PO QDAY #30 tablet 07/30/20 Unknown Rx Allergies Allergy/AdvReac Type Severity Reaction Status Date / Time No Known Allergies Allergy Verified 06/11/19 13:59 ED Review of Systems ROS: Stated complaint: CLOGGED CATHETER Other details as noted in HPI Constitutional: denies: chills, fever Eyes: denies: eye pain, eye discharge, vision change ENT: denies: ear pain, throat pain Respiratory: denies: cough, shortness of breath, wheezing Cardiovascular: denies: chest pain, palpitations Endocrine: no symptoms reported Gastrointestinal: as per HPI, abdominal pain. denies: nausea, diarrhea Genitourinary: as per HPI. denies: urgency, dysuria Musculoskeletal: denies: back pain, joint swelling, arthralgia Skin: denies: rash, lesions Neurological: denies: headache, weakness, paresthesias Psychiatric: denies: anxiety, depression Hematological/Lymphatic: denies: easy bleeding, easy bruising ED Past Medical Hx - Past Medical History Previous Medical History?: Yes Hx Hypertension: Yes Hx CVA: No Hx Heart Attack/AMI: No Hx Congestive Heart Failure: No Hx Diabetes: Yes (IDDM) Hx Deep Vein Thrombosis: No Hx Pulmonary Embolism: No Hx GERD: No Hx Liver Disease: No Hx Renal Disease: No Hx Sickle Cell Disease: No Hx Arthritis: No Hx Headaches / Migraines: No Hx Seizures: No Hx Kidney Stones: No Hx Psychiatric Treatment: No Hx Asthma: No Hx COPD: No Hx Tuberculosis: No Hx Dementia: No Hx HIV: No - Surgical History Past Surgical History?: Yes Additional Surgical History: Removal of left great toe toenail 06/06/2019 - Family History Family history: no significant - Social History Smoking Status: Never Smoker Substance Use Type: None - Medications Home Medications: Home Medications Medication Instructions Recorded Confirmed Last Taken Type Furosemide [Lasix TAB] 40 mg PO QDAY #30 tablet 06/13/19 Unknown Rx Isosorb Dinit/Hydralazine [Bidil 1 each PO Q8HR #90 tablet 06/13/19 Unknown Rx 20/37.5MG] Sitagliptin Phosphate [Januvia] 100 mg PO DAILY #30 tablet 06/13/19 Unknown Rx Tamsulosin [Flomax] 0.4 mg PO QDAY #90 cap 06/13/19 Unknown Rx carvediloL [Coreg] 3.125 mg PO BID #60 tablet 06/13/19 Unknown Rx metFORMIN XR [Glucophage XR] 500 mg PO QDDIAB #30 tablet 06/13/19 Unknown Rx Ciprofloxacin HCl [Ciprofloxacin 500 mg PO Q12HR 5 Days #10 tab 06/15/20 Unknown Rx TAB] Phenazopyridine [Pyridium] 200 mg PO TID #6 tab 06/15/20 Unknown Rx Magnesium Oxide 400 mg PO QDAY #30 tablet 07/30/20 Unknown Rx ED Physical Exam - General Limitations: Physical Limitation General appearance: alert, in no apparent distress - Head Head exam: Present: atraumatic, normocephalic - Eye Eye exam: Present: normal appearance - ENT ENT exam: Present: mucous membranes moist - Neck Neck exam: Present: normal inspection - Respiratory Respiratory exam: Present: normal lung sounds bilaterally. Absent: respiratory distress - Cardiovascular Cardiovascular Exam: Present: regular rate, normal rhythm. Absent: systolic murmur, diastolic murmur, rubs, gallop - GI/Abdominal GI/Abdominal exam: Present: soft, tenderness, normal bowel sounds - Rectal Rectal exam: Present: deferred - Extremities Exam Extremities exam: Present: normal inspection - Back Exam Back exam: Present: normal inspection - Neurological Exam Neurological exam: Present: alert, oriented X3 - Psychiatric Psychiatric exam: Present: normal affect, normal mood - Skin Skin exam: Present: warm, dry, intact, normal color. Absent: rash ED Course Vital Signs 11/19/20 11/19/20 11/19/20 04:14 04:15 04:30 Temperature 98.6 F Pulse Rate 87 Respiratory 16 Rate Blood Pressure 150/66 150/66 150/66 Blood Pressure 150/66 [Left] O2 Sat by Pulse 100 100 100 Oximetry 11/19/20 11/19/20 11/19/20 04:46 05:00 05:16 Temperature Pulse Rate Respiratory Rate Blood Pressure 150/66 150/62 150/66 Blood Pressure [Left] O2 Sat by Pulse 100 100 100 Oximetry 11/19/20 11/19/20 11/19/20 05:30 05:46 06:00 Temperature 97.9 F Pulse Rate Respiratory Rate Blood Pressure 150/66 150/62 162/74 Blood Pressure [Left] O2 Sat by Pulse 93 99 100 Oximetry 11/19/20 11/19/20 11/19/20 06:16 06:30 06:46 Temperature Pulse Rate Respiratory Rate Blood Pressure 162/74 162/74 162/74 Blood Pressure [Left] O2 Sat by Pulse 99 94 100 Oximetry 11/19/20 11/19/20 11/19/20 07:00 07:16 07:23 Temperature Pulse Rate Respiratory Rate Blood Pressure 156/70 156/70 Blood Pressure [Left] O2 Sat by Pulse 100 99 96 Oximetry 11/19/20 11/19/20 11/19/20 07:30 07:46 08:00 Temperature Pulse Rate Respiratory Rate Blood Pressure 156/70 156/70 157/71 Blood Pressure [Left] O2 Sat by Pulse 99 99 98 Oximetry 11/19/20 11/19/20 11/19/20 08:16 08:30 08:32 Temperature 98.3 F Pulse Rate 86 89 Respiratory 15 14 Rate Blood Pressure 156/70 153/68 153/68 Blood Pressure [Left] O2 Sat by Pulse 100 98 100 Oximetry 11/19/20 11/19/20 11/19/20 08:45 08:47 09:00 Temperature 98.2 F Pulse Rate 83 147 H 80 Respiratory 21 14 Rate Blood Pressure 152/72 160/72 Blood Pressure [Left] O2 Sat by Pulse 98 99 Oximetry 11/19/20 11/19/20 11/19/20 09:15 09:30 09:45 Temperature 98.4 F Pulse Rate 87 83 79 Respiratory 20 18 15 Rate Blood Pressure 158/116 158/75 166/74 Blood Pressure [Left] O2 Sat by Pulse 99 100 99 Oximetry 11/19/20 11/19/20 11/19/20 10:00 10:15 10:30 Temperature Pulse Rate 91 H 83 80 Respiratory 18 21 14 Rate Blood Pressure 167/76 164/74 159/66 Blood Pressure [Left] O2 Sat by Pulse 98 98 99 Oximetry 11/19/20 11/19/20 11/19/20 10:45 11:00 11:15 Temperature Pulse Rate 90 79 82 Respiratory 14 14 19 Rate Blood Pressure 169/71 140/62 147/66 Blood Pressure [Left] O2 Sat by Pulse 99 99 100 Oximetry 11/19/20 11/19/20 11/19/20 11:30 11:45 11:50 Temperature 98.4 F Pulse Rate 86 81 80 Respiratory 12 16 17 Rate Blood Pressure 162/73 168/77 147/61 Blood Pressure [Left] O2 Sat by Pulse 99 98 100 Oximetry 11/19/20 11/19/20 11/19/20 12:00 12:15 12:30 Temperature Pulse Rate 88 92 H 89 Respiratory 16 17 24 Rate Blood Pressure 179/81 182/79 180/82 Blood Pressure [Left] O2 Sat by Pulse 98 99 100 Oximetry 11/19/20 11/19/20 11/19/20 12:46 13:00 13:15 Temperature Pulse Rate 88 86 83 Respiratory 19 16 16 Rate Blood Pressure 173/75 166/77 165/74 Blood Pressure [Left] O2 Sat by Pulse 100 98 99 Oximetry 11/19/20 11/19/20 11/19/20 13:30 13:45 14:00 Temperature Pulse Rate 89 83 82 Respiratory 15 15 19 Rate Blood Pressure 165/77 156/71 155/68 Blood Pressure [Left] O2 Sat by Pulse 91 94 99 Oximetry 11/19/20 11/19/20 11/19/20 14:15 14:16 14:30 Temperature Pulse Rate 83 83 82 Respiratory 18 18 19 Rate Blood Pressure 147/61 147/61 164/74 Blood Pressure [Left] O2 Sat by Pulse 99 99 99 Oximetry 11/19/20 11/19/20 11/19/20 14:31 14:45 15:00 Temperature Pulse Rate 82 78 80 Respiratory 19 13 18 Rate Blood Pressure 164/74 166/80 159/73 Blood Pressure [Left] O2 Sat by Pulse 99 97 96 Oximetry 11/19/20 11/19/20 11/19/20 15:08 15:15 15:30 Temperature Pulse Rate 81 86 84 Respiratory 18 22 14 Rate Blood Pressure 148/64 165/78 149/72 Blood Pressure [Left] O2 Sat by Pulse 99 97 98 Oximetry 11/19/20 11/19/20 11/19/20 15:45 16:00 16:15 Temperature Pulse Rate 85 87 79 Respiratory 18 18 19 Rate Blood Pressure 142/75 130/69 133/72 Blood Pressure [Left] O2 Sat by Pulse 99 97 97 Oximetry 11/19/20 11/19/20 11/19/20 16:30 16:46 17:00 Temperature Pulse Rate 82 93 H 85 Respiratory 18 20 21 Rate Blood Pressure 137/68 134/72 134/72 Blood Pressure [Left] O2 Sat by Pulse 97 97 Oximetry 11/19/20 11/19/20 11/19/20 17:16 17:30 17:45 Temperature Pulse Rate 83 83 84 Respiratory 18 15 20 Rate Blood Pressure 134/72 134/72 134/72 Blood Pressure [Left] O2 Sat by Pulse 99 99 100 Oximetry 11/19/20 11/19/20 11/19/20 18:00 18:16 18:30 Temperature Pulse Rate 77 83 78 Respiratory 17 14 18 Rate Blood Pressure Blood Pressure [Left] O2 Sat by Pulse 98 99 99 Oximetry 11/19/20 11/19/20 11/19/20 18:46 19:00 19:16 Temperature Pulse Rate 84 76 82 Respiratory 17 14 20 Rate Blood Pressure 123/53 123/53 Blood Pressure [Left] O2 Sat by Pulse 98 100 99 Oximetry 11/19/20 11/19/20 11/19/20 19:30 19:46 20:00 Temperature Pulse Rate 77 78 79 Respiratory 19 15 14 Rate Blood Pressure 123/53 123/53 130/67 Blood Pressure [Left] O2 Sat by Pulse 97 100 98 Oximetry 11/19/20 11/19/20 11/19/20 20:16 20:30 20:40 Temperature Pulse Rate 75 77 74 Respiratory 17 17 15 Rate Blood Pressure 130/67 130/67 130/67 Blood Pressure [Left] O2 Sat by Pulse 99 98 97 Oximetry 11/19/20 11/19/20 11/19/20 20:50 21:00 21:10 Temperature Pulse Rate 74 76 75 Respiratory 13 18 19 Rate Blood Pressure 130/67 132/65 132/65 Blood Pressure [Left] O2 Sat by Pulse 100 98 97 Oximetry 11/19/20 11/19/20 21:20 21:35 Temperature Pulse Rate 76 Respiratory 16 Rate Blood Pressure 132/65 132/65 Blood Pressure [Left] O2 Sat by Pulse 98 Oximetry - Reevaluation(s) Reevaluation #1: Nurse will change the catheter. A UA will be done. 11/19/20 04:27 Reevaluation #2: Patient's had a new lancaster placed. Patient states that he is feeling much better. Patient's Lancaster was flushed multiple times without difficulty. Patient will still have gross hematuria. Patient will have labs done since patient was found to have an elevated blood sugar with EMS. 11/19/20 05:10 Reevaluation #3: I discussed all results with patient. I discussed plan of care with patient. Patient agrees with plan of care and admission. Patient to be admitted to the hospitalist service. 11/19/20 05:42 - Consultations Consultation #1: Hospitalist consulted for admission. Hospitalist to admit patient. 11/19/20 05:42 ED Medical Decision Making - Lab Data Result diagrams: 11/19/20 05:11 11/19/20 05:11 - Medical Decision Making Patient is a 7-year-old male presents emergency room with complaints of malfunctioning catheter and lower abdominal pain. Patient is catheter was malika nged and flushed multiple times and his pain increased. The patient pain, basic labs were ordered. Patient had a CBC and chemistry. Patient found to be severely anemic. Patient was typed and screened. Patient admitted to the hospital service for further evaluation treatment. Critical care time documented due to the multiple reassessments, prolonged time at the bedside, interpretation of diagnostics and labs. - Differential Diagnosis UTI, hematuria, malfunctioning Lancaster, hyperglycemia Critical Care Time: Yes Critical care time in (mins) excluding proc time.: 35 Critical care attestation.: If time is entered above; I have spent that time in minutes in the direct care of this critically ill patient, excluding procedure time. Critical Care Time: 35 minutes ED Disposition Clinical Impression: Lancaster catheter in place, Gross hematuria, Severe anemia, Hyperglycemia Abdominal pain Qualifiers: Abdominal location: lower abdomen, unspecified Qualified Code(s): R10.30 - Lower abdominal pain, unspecified Lancaster catheter problem Qualifiers: Encounter type: initial encounter Qualified Code(s): T83.9XXA - Unspecified complication of genitourinary prosthetic device, implant and graft, initial encounter UTI (urinary tract infection) Qualifiers: Urinary tract infection type: acute cystitis Hematuria presence: with hematuria Qualified Code(s): N30.01 - Acute cystitis with hematuria Anemia Qualifiers: Anemia type: unspecified type Qualified Code(s): D64.9 - Anemia, unspecified Disposition: DC-09 OP ADMIT IP TO THIS HOSP Is pt being admited?: Yes Does the pt Need Aspirin: No Condition: Critical Time of Disposition: 05:34
[2020-11-19] MEDS ORDERED: SODIUM CHLORIDE 0.9% IRR 500 ML BOTTLE IR ONE (04:46)
[2020-11-19 05:13] LABS: Bacteria,Urine 4+ /HPF (Negative); Bilirubin,Urine NEG (Negative); Blood,Urine MOD (Negative); Color,Urine Red (Yellow); Mucus,Urine FEW /HPF; RBC,Urine > 182.0 /HPF (0.0-6.0); Urobilinogen,Urine < 2.0 mg/dL (<2.0); WBC,Urine > 182.0 /HPF (0.0-6.0)
[2020-11-19 05:33] LABS: Mean Corpuscular HGB Conc 29 % (32-34); Platelet Count 652 K/mm3 (140-440); Red Blood Count 3.23 M/mm3 (3.65-5.03)
[2020-11-19 05:36] LABS: Hematocrit 18.4 % (35.5-45.6); Hemoglobin 5.3 gm/dl (11.8-15.2); Mean Corpuscular Volume 57 fl (84-94); Red Cell Distribution Width 20.1 % (13.2-15.2)
[2020-11-19 05:53] LABS: Alanine Aminotransferase 6 units/L (7-56); Albumin 3.6 g/dL (3.9-5); BUN/Creatinine Ratio 7; Blood Urea Nitrogen 10 mg/dL (9-20); Calcium 9.3 mg/dL (8.4-10.2); Hemolysis Index 1
[2020-11-19] MEDS ORDERED: ACETAMINOPHEN 325 MG TAB PO PRN (06:10)
[2020-11-19] MEDS ORDERED: HYDROmorphone 1 MG/1 ML INJ IV PRN (06:10)
[2020-11-19] MEDS ORDERED: ALBUTEROL 2.5 MG/3 ML NEBU IH PRN (06:10)
[2020-11-19] MEDS ORDERED: ONDANSETRON 4 MG/2 ML INJ IV PRN (06:10)
[2020-11-19] MEDS ORDERED: HYDROcodone/ACETAMINOPHEN 5-325 MG TAB PO PRN (06:10)
[2020-11-19] MEDS ORDERED: SODIUM CHLORIDE 0.9% 500 ML 500 ML IV ONE (06:13)
[2020-11-19] MEDS ORDERED: hydrALAZINE 20 MG/1 ML INJ IV PRN (06:13)
--- NOTE | 2020-11-19 06:20 | History and Physical Report ---
History of Present Illness Date of examination: 11/19/20 Date of admission: 11/19/20 Chief complaint: Lord catheter malfunction Hematuria History of present illness: 70-year-old male presents emergency room with complaints of severe abdominal pain and a clogged Lord catheter and blood in his catheter. Patient states that he has had difficulties with his catheter over the last 4 days. Patient states that he finally blocked off today and he started having abdominal pain. Patient states he is also noted hematuria in the urine bag that started today. Patient denies fever and chills. Patient denies chest pain and shortness of breath. Patient denies nausea vomiting. Patient states he had a indwelling catheter many times. Patient states he is has a clogged catheter many times as well. In the emergency room patient is found to have hemoglobin of 5.3 and hematocrit 18.4. ER physician change the Lord catheter Past History Past Medical History: diabetes, hypertension Medications and Allergies Allergies Allergy/AdvReac Type Severity Reaction Status Date / Time No Known Allergies Allergy Verified 06/11/19 13:59 Home Medications Medication Instructions Recorded Confirmed Last Taken Type Furosemide [Lasix TAB] 40 mg PO QDAY #30 tablet 06/13/19 Unknown Rx Isosorb Dinit/Hydralazine [Bidil 1 each PO Q8HR #90 tablet 06/13/19 Unknown Rx 20/37.5MG] Sitagliptin Phosphate [Januvia] 100 mg PO DAILY #30 tablet 06/13/19 Unknown Rx Tamsulosin [Flomax] 0.4 mg PO QDAY #90 cap 06/13/19 Unknown Rx carvediloL [Coreg] 3.125 mg PO BID #60 tablet 06/13/19 Unknown Rx metFORMIN XR [Glucophage XR] 500 mg PO QDDIAB #30 tablet 06/13/19 Unknown Rx Ciprofloxacin HCl [Ciprofloxacin 500 mg PO Q12HR 5 Days #10 tab 06/15/20 Unknown Rx TAB] Phenazopyridine [Pyridium] 200 mg PO TID #6 tab 06/15/20 Unknown Rx Magnesium Oxide 400 mg PO QDAY #30 tablet 07/30/20 Unknown Rx Active Meds: Active Medications Acetaminophen (Acetaminophen 325 Mg Tab) 650 mg PO Q4H PRN PRN Reason: Pain MILD(1-3)/Fever >100.5/LEVINE Hydrocodone Bitart/Acetaminophen (Hydrocodone/Acetaminophen 5-325 Mg Tab) 2 each PO Q6H PRN PRN Reason: Pain, Moderate (4-6) Albuterol (Albuterol 2.5 Mg/3 Ml Nebu) 2.5 mg IH Q4HRT PRN PRN Reason: Shortness Of Breath Albuterol/Ipratropium (Ipratropium/Albuterol Sulfate 3 Ml Ampul.Neb) 1 ampul IH Q6HRT [facility] Carvedilol (Carvedilol 3.125 Mg Tab) 3.125 mg PO BID [facility] Famotidine (Famotidine 20 Mg Tab) 20 mg PO BID [facility] Furosemide (Furosemide 40 Mg Tab) 40 mg PO QDAY [facility] Hydralazine HCl (Hydralazine 20 Mg/1 Ml Inj) 10 mg IV Q6H PRN PRN Reason: Blood Pressure Hydromorphone HCl (Hydromorphone 1 Mg/1 Ml Inj) 0.5 mg IV Q3H PRN PRN Reason: Pain , Severe (7-10) Ceftriaxone Sodium (Rocephin/Ns 2 Gm/100 Ml) 2 gm in 100 mls @ 200 mls/hr IV Q24H ASIM; Protocol Sodium Chloride (Nacl 0.9% 500 Ml) 500 mls @ 0 mls/hr IV ONCE ONE Stop: 11/19/20 06:14 Isosorbide Dinitrate/Hydralazine (Isosorb Dinit/Hydralazine 20-37.5mg Tab) 1 each PO Q8HR [facility] Magnesium Oxide (Magnesium Oxide 400 Mg Tab) 400 mg PO QDAY [facility] Metformin HCl (Metformin Xr 500mg Tab) 500 mg PO QDDIAB [facility] Miscellaneous Medication (Sitagliptin Phosphate [Januvia]) 100 mg PO DAILY [facility] Ondansetron HCl (Ondansetron 4 Mg/2 Ml Inj) 4 mg IV Q8H PRN PRN Reason: Nausea And Vomiting Phenazopyridine HCl (Phenazopyridine 200 Mg Tab) 200 mg PO TID [facility] Sodium Chloride (Sodium Chloride 0.9% 10 Ml Flush Syringe) 10 ml IV BID [facility] Sodium Chloride (Sodium Chloride 0.9% 10 Ml Flush Syringe) 10 ml IV PRN PRN PRN Reason: LINE FLUSH Tamsulosin HCl (Tamsulosin 0.4 Mg Cap) 0.4 mg PO QDAY [facility] Review of Systems Gastrointestinal: abdominal pain Genitourinary Male: hematuria Exam - Constitutional Vitals: Temp Pulse Resp BP Pulse Ox 98.6 F 87 16 150/66 100 11/19/20 04:14 11/19/20 04:14 11/19/20 04:14 11/19/20 04:14 11/19/20 04:14 General appearance: Present: no acute distress, well-nourished - EENT Eyes: Present: PERRL ENT: hearing intact, clear oral mucosa - Neck Neck: Present: supple, normal ROM - Respiratory Respiratory effort: normal Respiratory: bilateral: CTA - Cardiovascular Heart Sounds: Present: S1 & S2. Absent: rub, click - Extremities Extremities: pulses symmetrical, No edema Peripheral Pulses: within normal limits - Abdominal General gastrointestinal: Present: soft, non-tender, non-distended, normal bowel sounds Male genitourinary: Present: normal - Integumentary Integumentary: Present: clear, warm, dry - Musculoskeletal Musculoskeletal: gait normal, strength equal bilaterally - Psychiatric Psychiatric: appropriate mood/affect, intact judgment & insight - Neurologic Neurologic: CNII-XII intact, moves all extremities Results - Labs CBC & Chem 7: 11/19/20 05:11 11/19/20 05:11 Labs: Laboratory Last Values WBC 13.1 K/mm3 (4.5-11.0) H 11/19/20 05:11 RBC 3.23 M/mm3 (3.65-5.03) L 11/19/20 05:11 Hgb 5.3 gm/dl (11.8-15.2) L* 11/19/20 05:11 Hct 18.4 % (35.5-45.6) L* 11/19/20 05:11 MCV 57 fl (84-94) L 11/19/20 05:11 MCH 16 pg (28-32) L 11/19/20 05:11 MCHC 29 % (32-34) L 11/19/20 05:11 RDW 20.1 % (13.2-15.2) H 11/19/20 05:11 Plt Count 652 K/mm3 (140-440) H 11/19/20 05:11 Sodium 138 mmol/L (137-145) 11/19/20 05:11 Potassium 5.1 mmol/L (3.6-5.0) H 11/19/20 05:11 Chloride 106.5 mmol/L (98-107) 11/19/20 05:11 Carbon Dioxide 22 mmol/L (22-30) 11/19/20 05:11 Anion Gap 15 mmol/L 11/19/20 05:11 BUN 10 mg/dL (9-20) 11/19/20 05:11 Creatinine 1.4 mg/dL (0.8-1.3) H 11/19/20 05:11 Estimated GFR > 60 ml/min 11/19/20 05:11 BUN/Creatinine Ratio 7 % 11/19/20 05:11 Glucose 373 mg/dL (75-100) H 11/19/20 05:11 Calcium 9.3 mg/dL (8.4-10.2) 11/19/20 05:11 Total Bilirubin 0.20 mg/dL (0.1-1.2) 11/19/20 05:11 AST 13 units/L (5-40) 11/19/20 05:11 ALT 6 units/L (7-56) L 11/19/20 05:11 Alkaline Phosphatase 102 units/L (35-129) 11/19/20 05:11 Total Protein 7.6 g/dL (6.3-8.2) 11/19/20 05:11 Albumin 3.6 g/dL (3.9-5) L 11/19/20 05:11 Albumin/Globulin Ratio 0.9 % 11/19/20 05:11 Urine Color Red (Yellow) 11/19/20 04:47 Urine Turbidity Cloudy (Clear) 11/19/20 04:47 Urine pH 6.0 (5.0-7.0) 11/19/20 04:47 Ur Specific [place] 1.015 (1.003-1.030) 11/19/20 04:47 Urine Protein 100 mg/dl mg/dL (Negative) 11/19/20 04:47 Urine Glucose (UA) >=500 mg/dL (Negative) 11/19/20 04:47 Urine Ketones Neg mg/dL (Negative) 11/19/20 04:47 Urine Blood Mod (Negative) 11/19/20 04:47 Urine Nitrite Neg (Negative) 11/19/20 04:47 Urine Bilirubin Neg (Negative) 11/19/20 04:47 Urine Urobilinogen < 2.0 mg/dL (<2.0) 11/19/20 04:47 Ur Leukocyte Esterase Mod (Negative) 11/19/20 04:47 Urine WBC (Auto) > 182.0 /HPF (0.0-6.0) H 11/19/20 04:47 Urine RBC (Auto) > 182.0 /HPF (0.0-6.0) 11/19/20 04:47 Urine Bacteria (Auto) 4+ /HPF (Negative) 11/19/20 04:47 Urine WBC Clumps 3+ /HPF 11/19/20 04:47 Urine Mucus Few /HPF 11/19/20 04:47 Assessment and Plan VTE prophylaxis?: Mechanical Plan of care discussed with patient/family: Yes - Patient Problems (1) Severe anemia Current Visit: Yes Status: Acute Plan to address problem: Admit the patient to the medical floor. We have transfusing 3 units of packed red blood cell. Recheck CBC in the morning. We will monitor the patient closely (2) Gross hematuria Current Visit: Yes Status: Acute Plan to address problem: ER physician already changed the Lord catheter. Patient has on urologist. Co nsult urology if needed. Recheck CBC in the morning (3) Abdominal pain Current Visit: Yes Status: Acute Qualifiers: Abdominal location: lower abdomen, unspecified Qualified Code(s): R10.30 - Lower abdominal pain, unspecified Plan to address problem: Tylenol 650 mg p.o. every 6 hours as needed. Morphine 2 mg IV every 4 hours as needed. Famotidine 10 mg p.o. twice daily we will monitor the patient closely (4) UTI (urinary tract infection) Current Visit: Yes Status: Acute Qualifiers: Urinary tract infection type: acute cystitis Hematuria presence: with hematuria Qualified Code(s): N30.01 - Acute cystitis with hematuria Plan to address problem: We will put the patient on Rocephin 2 g IV daily. We will send the urine for culture. Follow urine culture. Recheck CBC BMP in the morning (5) Diabetes Current Visit: No Status: Acute Plan to address problem: We will put the patient on 1800 kcal ADA diet. We will continue the home diabetic medication. BMP in the morning (6) DVT prophylaxis Current Visit: No Status: Acute Plan to address problem: SCD for DVT prophylaxis because of hyponatremia. Pepcid 10 mg p.o. twice daily for GI prophylaxis. Patient is a full code
[2020-11-19] MEDS: cefTRIAXone/NS 2 GM/100 ML 2 GM/100 ML BAG IV SCH (06:51)
[2020-11-19] MEDS ORDERED: IPRATROPIUM/ALBUTEROL SULFATE 3 ML AMPUL.NEB IH SCH (08:00)
[2020-11-19] MEDS ORDERED: metFORMIN XR 500MG TAB PO SCH (08:00)
[2020-11-19] MEDS ORDERED: SODIUM CHLORIDE 0.9% 500 ML 500 ML ONE ×3 (08:20→14:11)
[2020-11-19] MEDS: PHENAZOPYRIDINE 200 MG TAB PO SCH ×3 (09:43→23:38)
[2020-11-19] MEDS ORDERED: FAMOTIDINE 20 MG TAB PO SCH (10:00)
[2020-11-19] MEDS ORDERED: LINAGLIPTIN 5 MG TAB PO SCH (10:00)
[2020-11-19] MEDS ORDERED: NON-FORMULARY EACH (Sitagliptin Phosphate [Januvia] 100 MG Tablet) PO SCH (10:00)
[2020-11-19] MEDS ORDERED: INSULIN REGULAR, HUMAN 100 UNITS/1 ML IV ONE (10:34)
[2020-11-19] MEDS: carvediloL 3.125 MG TAB PO SCH ×2 (11:27→23:45)
[2020-11-19] MEDS: TAMSULOSIN 0.4 MG CAP PO SCH (11:27)
[2020-11-19] MEDS: MAGNESIUM OXIDE 400 MG TAB PO SCH (11:28)
[2020-11-19] MEDS: FAMOTIDINE 10 MG TAB PO SCH ×2 (11:28→23:45)
[2020-11-19] MEDS: FUROSEMIDE 40 MG TAB PO SCH (12:01)
[2020-11-19] MEDS: ISOSORB DINIT/HYDRALAZINE 20-37.5MG TAB PO SCH ×2 (15:09→23:37)
--- NOTE | 2020-11-19 15:33 | Cat Scan Report ---
CT ABDOMEN AND PELVIS WITHOUT CONTRAST INDICATION / CLINICAL INFORMATION: Obstruction of flow catheter, hematuria. TECHNIQUE: Axial CT images were obtained through the abdomen and pelvis without IV contrast. All CT scans at [facility] location are performed using CT dose reduction for ALARA by means of automated exposure control. COMPARISON: CT abdomen and pelvis without contrast from 06/15/2020. FINDINGS: LOWER CHEST: Unchanged right lower lobe calcified granuloma without other significant abnormalities. LIVER: Similarly cirrhotic in configuration without other significant abnormalities. GALLBLADDER: There is cholelithiasis without evidence of acute cholecystitis. BILE DUCTS: No significant abnormality. PANCREAS: Generalized calcifications along the pancreas are compatible with chronic pancreatitis. No other significant abnormality. SPLEEN: No significant abnormality. ADRENALS: No significant abnormality. RIGHT KIDNEY / URETER: No significant abnormality. LEFT KIDNEY / URETER: Prior total nephrectomy. No significant abnormality along the left renal bed. STOMACH / SMALL BOWEL: No significant abnormality. COLON: No significant abnormality. APPENDIX: No significant abnormality. PERITONEUM: No free fluid. No free air. No fluid collection. LYMPH NODES: No significant adenopathy. AORTA / ARTERIES: The aorta is normal in caliber with mild generalized atherosclerosis. IVC / VEINS: No significant abnormality. URINARY BLADDER: The bladder is drained by a Lord catheter with air seen in the bladder that is like ly related to catheter placement. Air is also seen throughout the visualized portions of the catheter . It is difficult to differentiate the bladder from the adjacent markedly enlarged prostate gland. REPRODUCTIVE ORGANS: Stable marked enlargement of the prostate gland ADDITIONAL FINDINGS: None. SKELETAL SYSTEM: No acute findings or other significant interval changes. IMPRESSION: Expected positioning of the Lord catheter within the bladder without identification of an acute abno rmality of the bladder or other significant changes from the prior CT. Signer Name: Ramiro Thornton MD Signed: 11/19/2020 3:29 PM Workstation Name: [id number]
--- NOTE | 2020-11-19 15:49 | Progress Note ---
Assessment and Plan Assessment and plan: Assessment and Plan #1 urinary bladder obstruction -History of severe BPH and prior history of hematuria in the past. Had work-up with urology at [place]. However patient frequently gets obstructed and will present at [facility]. He denies having a regular outpatient urologist that he follows with. - ER physician already changed the Lord catheter. - would benefit from CBI as patient still continues to have hematuria with large blood clots. - would benefit from urology evaluation. #2 gross hematuria -Hemoglobin 5.3 on admission. Hemodynamically stable -3 units PRBC ordered. - Follow-up CBC in the a.m. #3 BPH -Longstanding history of BPH #4 blood loss anemia -Management as above #5 urinary tract infection -Pyuria and hematuria noted. wbc elevated in UA. 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 #6 Type 2 diabetes with hyperglycemia - BG 373-258 -Basal bolus insulin coverage. -Hypoglycemic protocol -Diabetic diet DVT prophylaxis: SCDs - Patient Problems (1) Obstructive uropathy Current Visit: Yes Status: Acute (2) Acute blood loss anemia Current Visit: Yes Status: Acute (3) Diabetes mellitus with hyperglycemia Current Visit: Yes Status: Acute (4) Anemia Current Visit: Yes Status: Acute Qualifiers: Anemia type: unspecified type Qualified Code(s): D64.9 - Anemia, unspecified (5) Lord catheter in place Current Visit: Yes Status: Acute (6) UTI (urinary tract infection) Current Visit: Yes Status: Acute Qualifiers: Urinary tract infection type: acute cystitis Hematuria presence: with hematuria Qualified Code(s): N30.01 - Acute cystitis with hematuria (7) Gross hematuria Current Visit: Yes Status: Acute (8) DVT prophylaxis Current Visit: No Status: Acute History Interval history: Patient resting comfortably. Lord in place demonstrating 400 cc dark red blood. Patient states that his suprapubic pain/pressure was significantly worse yesterday and was significantly improved after replacement of his Lord. He does have some suprapubic discomfort on examination. Had a long discussion about patient's urologic history. 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 It was placed at [facility] where he has seen several different urologist. He states that he will typically get obstructed every 1 to 2 months and present to the [place] [facility]. He states that he does not have an outpatient urologist. He is also been evaluated at [facility] 1 time with cystoscopy which she states was completed 6 months ago. He was told at the time that he does not have any findings consistent with malignancy. Hospitalist Physical - Physical exam Narrative exam: Physical Exam: GENERAL APPEARANCE: Well developed, well nourished, alert and cooperative, and appears to be in no acute distress. Pleasant elderly gentleman. HEAD: normocephalic. EYES: PERRL, EOMI. Vision is grossly intact. EARS: No gross deformities NOSE: No nasal discharge. THROAT: Oral cavity and pharynx normal. No inflammation, swelling, exudate, or lesions. Teeth and gingiva in good general condition. NECK: Neck supple, non-tender without lymphadenopathy, masses or thyromegaly. CARDIAC: Normal S1 and S2. No S3, S4 or murmurs. Rhythm is regular. There is no peripheral edema, cyanosis or pallor. Extremities are warm and well perfused. Capillary refill is less than 2 seconds. No carotid bruits. LUNGS: Clear to auscultation and percussion without rales, rhonchi, wheezing or diminished breath sounds. ABDOMEN: Positive bowel sounds. Soft, nondistended, tenderness to palpation of suprapubic region. No guarding or rebound. No masses. MUSKULOSKELETAL: Adequately aligned spine. ROM intact spine and extremities. No joint erythema or tenderness. Normal muscular development. Normal gait. : Lord catheter in place, dark red blood noted in Lord tubing and bag BACK: Examination of the spine reveals normal gait and posture EXTREMITIES: No significant deformity or joint abnormality. No edema. Peripheral pulses intact. No varicosities. NEUROLOGICAL: CN II-XII intact. Strength and sensation symmetric and intact throughout. Reflexes 2+ throughout. PSYCHIATRIC: The mental examination revealed the patient was oriented to person, place, and time. - Constitutional Vitals: Temp Pulse Resp BP Pulse Ox 98.4 F 81 18 148/64 99 11/19/20 11:50 11/19/20 15:08 11/19/20 15:08 11/19/20 15:08 11/19/20 15:08 General appearance: Present: no acute distress, well-nourished Results - Labs CBC & Chem 7: 11/19/20 05:11 11/19/20 05:11 Labs: Laboratory Last Values WBC 13.1 K/mm3 (4.5-11.0) H 11/19/20 05:11 RBC 3.23 M/mm3 (3.65-5.03) L 11/19/20 05:11 Hgb 5.3 gm/dl (11.8-15.2) L* 11/19/20 05:11 Hct 18.4 % (35.5-45.6) L* 11/19/20 05:11 MCV 57 fl (84-94) L 11/19/20 05:11 MCH 16 pg (28-32) L 11/19/20 05:11 MCHC 29 % (32-34) L 11/19/20 05:11 RDW 20.1 % (13.2-15.2) H 11/19/20 05:11 Plt Count 652 K/mm3 (140-440) H 11/19/20 05:11 Sodium 138 mmol/L (137-145) 11/19/20 05:11 Potassium 5.1 mmol/L (3.6-5.0) H 11/19/20 05:11 Chloride 106.5 mmol/L (98-107) 11/19/20 05:11 Carbon Dioxide 22 mmol/L (22-30) 11/19/20 05:11 Anion Gap 15 mmol/L 11/19/20 05:11 BUN 10 mg/dL (9-20) 11/19/20 05:11 Creatinine 1.4 mg/dL (0.8-1.3) H 11/19/20 05:11 Estimated GFR > 60 ml/min 11/19/20 05:11 BUN/Creatinine Ratio 7 % 11/19/20 05:11 Glucose 373 mg/dL (75-100) H 11/19/20 05:11 POC Glucose 258 mg/dL (70-105) H 11/19/20 09:24 Calcium 9.3 mg/dL (8.4-10.2) 11/19/20 05:11 Total Bilirubin 0.20 mg/dL (0.1-1.2) 11/19/20 05:11 AST 13 units/L (5-40) 11/19/20 05:11 ALT 6 units/L (7-56) L 11/19/20 05:11 Alkaline Phosphatase 102 units/L (35-129) 11/19/20 05:11 Total Protein 7.6 g/dL (6.3-8.2) 11/19/20 05:11 Albumin 3.6 g/dL (3.9-5) L 11/19/20 05:11 Albumin/Globulin Ratio 0.9 % 11/19/20 05:11 Urine Color Red (Yellow) 11/19/20 04:47 Urine Turbidity Cloudy (Clear) 11/19/20 04:47 Urine pH 6.0 (5.0-7.0) 11/19/20 04:47 Ur Specific [place] 1.015 (1.003-1.030) 11/19/20 04:47 Urine Protein 100 mg/dl mg/dL (Negative) 11/19/20 04:47 Urine Glucose (UA) >=500 mg/dL (Negative) 11/19/20 04:47 Urine Ketones Neg mg/dL (Negative) 11/19/20 04:47 Urine Blood Mod (Negative) 11/19/20 04:47 Urine Nitrite Neg (Negative) 11/19/20 04:47 Urine Bilirubin Neg (Negative) 11/19/20 04:47 Urine Urobilinogen < 2.0 mg/dL (<2.0) 11/19/20 04:47 Ur Leukocyte Esterase Mod (Negative) 11/19/20 04:47 Urine WBC (Auto) > 182.0 /HPF (0.0-6.0) H 11/19/20 04:47 Urine RBC (Auto) > 182.0 /HPF (0.0-6.0) 11/19/20 04:47 Urine Bacteria (Auto) 4+ /HPF (Negative) 11/19/20 04:47 Urine WBC Clumps 3+ /HPF 11/19/20 04:47 Urine Mucus Few /HPF 11/19/20 04:47 Blood Type O POSITIVE 11/19/20 05:50 Antibody Screen Negative 11/19/20 05:50 Crossmatch See Detail 11/19/20 05:50 Active Medications - Current Medications Current Medications: Generic Name Dose Route Start Last Admin Trade Name Freq PRN Reason Stop Dose Admin Acetaminophen 650 mg 11/19/20 06:10 Acetaminophen 325 Mg Tab PO Q4H PRN Pain MILD(1-3)/Fever >100.5/LEVINE Hydrocodone Bitart/Acetaminophen 2 each 11/19/20 06:10 Hydrocodone/Acetaminophen 5-325 Mg Tab PO Q6H PRN Pain, Moderate (4-6) Albuterol 2.5 mg 11/19/20 06:10 Albuterol 2.5 Mg/3 Ml Nebu IH Q4HRT PRN Shortness Of Breath Carvedilol 3.125 mg 11/19/20 10:00 11/19/20 11:27 Carvedilol 3.125 Mg Tab PO 3.125 mg BID ASIM Administration Famotidine 10 mg 11/19/20 10:00 11/19/20 11:28 Famotidine 10 Mg Tab PO 10 mg BID ASIM Administration Furosemide 40 mg 11/19/20 10:00 11/19/20 12:01 Furosemide 40 Mg Tab PO 40 mg QDAY ASIM Administration Hydralazine HCl 10 mg 11/19/20 06:13 Hydralazine 20 Mg/1 Ml Inj IV Q6H PRN Blood Pressure Hydromorphone HCl 0.5 mg 11/19/20 06:10 Hydromorphone 1 Mg/1 Ml Inj IV Q3H PRN Pain , Severe (7-10) Ceftriaxone Sodium 2 gm in 100 mls @ 200 mls/hr 11/19/20 07:00 11/19/20 06:51 Rocephin/Ns 2 Gm/100 Ml IV 11/25/20 10:59 200 mls/hr Q24H ASIM Administration Protocol Sodium Chloride 1,000 mls @ 100 mls/hr 11/19/20 12:00 Nacl 0.9% 1000 Ml IV DIRECT ASIM Isosorbide Dinitrate/Hydralazine 1 each 11/19/20 14:00 11/19/20 15:09 Isosorb Dinit/Hydralazine 20-37.5mg Tab PO 1 each Q8HR ASIM Administration Linagliptin 5 mg 11/19/20 10:00 11/19/20 12:01 Linagliptin 5 Mg Tab PO 5 mg QDAY ASIM Administration Magnesium Oxide 400 mg 11/19/20 10:00 11/19/20 11:28 Magnesium Oxide 400 Mg Tab PO 400 mg QDAY ASIM Administration Metformin HCl 500 mg 11/19/20 08:00 11/19/20 09:43 Metformin Xr 500mg Tab PO 500 mg QDDIAB ASIM Administration Ondansetron HCl 4 mg 11/19/20 06:10 Ondansetron 4 Mg/2 Ml Inj IV Q8H PRN Nausea And Vomiting Phenazopyridine HCl 200 mg 11/19/20 08:00 11/19/20 15:09 Phenazopyridine 200 Mg Tab PO 200 mg TID ASIM Administration Sodium Chloride 10 ml 11/19/20 10:00 11/19/20 11:28 Sodium Chloride 0.9% 10 Ml Flush Syringe IV 10 ml BID ASIM Administration Sodium Chloride 10 ml 11/19/20 06:10 Sodium Chloride 0.9% 10 Ml Flush Syringe IV PRN PRN LINE FLUSH Tamsulosin HCl 0.4 mg 11/19/20 10:00 11/19/20 11:27 Tamsulosin 0.4 Mg Cap PO 0.4 mg QDAY ASIM Administration
[2020-11-19] MEDS ORDERED: DEXTROSE 50% IN WATER (25GM) 50 ML SYRINGE IV PRN (16:01)
[2020-11-19] MEDS: INSULIN LISPRO 100 UNIT/ML SUB-Q SCH ×2 (16:40→22:53)
[2020-11-19] MEDS: INSULIN GLARGINE 100 UNITS/ML SUB-Q SCH (22:53)
[2020-11-20] MEDS: ALUM-MAG HYDROXIDE-SIMETHICONE 200-200-20MG/5ML ORAL LIQD 30 ML PO PRN ×2 (03:36→10:47)
[2020-11-20] MEDS: ISOSORB DINIT/HYDRALAZINE 20-37.5MG TAB PO SCH ×3 (05:53→21:32)
[2020-11-20 06:33] LABS: Hematocrit 25.1 % (35.5-45.6); Mean Corpuscular HGB Conc 32 % (32-34); Platelet Count 459 K/mm3 (140-440); Red Blood Count 3.82 M/mm3 (3.65-5.03)
[2020-11-20 06:43] LABS: Mean Corpuscular Volume 66 fl (84-94)
[2020-11-20 06:45] LABS: Red Cell Distribution Width 29.6 % (13.2-15.2)
[2020-11-20 06:55] LABS: BUN/Creatinine Ratio 8; Blood Urea Nitrogen 10 mg/dL (9-20); Calcium 8.6 mg/dL (8.4-10.2); Hemolysis Index 24
[2020-11-20] MEDS: cefTRIAXone/NS 2 GM/100 ML 2 GM/100 ML BAG IV SCH (07:00)
[2020-11-20] MEDS: INSULIN LISPRO 100 UNIT/ML SUB-Q SCH ×4 (07:30→21:41)
[2020-11-20 07:40] LABS: Anisocytosis 1+; Platelet Estimate Consistent w Auto; Total Cells Counted 100
--- NOTE | 2020-11-20 08:45 | Progress Note ---
Assessment and Plan Assessment and plan: Assessment and Plan #1 urinary bladder obstruction -History of severe BPH and prior history of hematuria in the past. Had work-up with urology at [place]. However patient frequently gets obstructed and will present at [facility]. He denies having a regular outpatient urologist that he follows with. - ER physician already changed the Lord catheter. - would benefit from CBI as patient still continues to have hematuria with large blood clots. - would benefit from urology evaluation. #2 gross hematuria -Hemoglobin 5.3 on admission. Hemodynamically stable -3 units PRBC ordered on admission -Hemoglobin stable 8.0. -H&H tomorrow a.m. #3 BPH -Longstanding history of BPH #4 blood loss anemia -Management as above #5 urinary tract infection -Pyuria and hematuria noted. wbc elevated in UA. 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 #6 Type 2 diabetes with hyperglycemia - BG [phone] -Basal bolus insulin coverage. -Hypoglycemic protocol -Diabetic diet DVT prophylaxis: SCDs Dispo: Patient does not have an outpatient urologist. Typically when obstructed he presents to [facility]. In house Urology was called on this admission on 11/19, declined consult. Transfer was attempted to [facility] on 11/19, declined consult as they were on divert. Working with hospital administration for solution. CM aware. - Patient Problems (1) Obstructive uropathy Current Visit: Yes Status: Acute (2) Acute blood loss anemia Current Visit: Yes Status: Acute (3) Diabetes mellitus with hyperglycemia Current Visit: Yes Status: Acute (4) Anemia Current Visit: Yes Status: Acute Qualifiers: Anemia type: unspecified type Qualified Code(s): D64.9 - Anemia, unspecified (5) Lord catheter in place Current Visit: Yes Status: Acute (6) UTI (urinary tract infection) Current Visit: Yes Status: Acute Qualifiers: Urinary tract infection type: acute cystitis Hematuria presence: with hematuria Qualified Code(s): N30.01 - Acute cystitis with hematuria (7) Gross hematuria Current Visit: Yes Status: Acute (8) DVT prophylaxis Current Visit: No Status: Acute History Interval history: 11/19/20: Patient resting comfortably. Lord in place demonstrating 400 cc dark red blood. Patient states that his suprapubic pain/pressure was significantly worse yesterday and was significantly improved after replacement of his Lord. He does have some suprapubic discomfort on examination. Had a long discussion about patient's urologic history. 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 It was placed at [facility] where he has seen several different urologist. He states that he will typically get obstructed every 1 to 2 months and present to the [place] emergency department. He states that he does not have an outpatient urologist. He is also been evaluated at [facility] 1 time with cystoscopy which she states was completed 6 months ago. He was told at the time that he does not have any findings consistent with malignancy. 11/20/20: Only complaint today is abdominal pain. patient states that he feels "backed up". He states that he had a bowel movement yesterday but today has only been passing flattus. Encourage the patient work with PT and get up and out of bed to walk around ( only with staff ) when possible. Will place on bowel regimen. Hospitalist Physical - Physical exam Narrative exam: Physical Exam: GENERAL APPEARANCE: Well developed, well nourished, alert and cooperative, and appears to be in no acute distress. Pleasant elderly gentleman. HEAD: normocephalic. EYES: PERRL, EOMI. Vision is grossly intact. EARS: No gross deformities NOSE: No nasal discharge. THROAT: Oral cavity and pharynx normal. No inflammation, swelling, exudate, or lesions. Teeth and gingiva in good general condition. NECK: Neck supple, non-tender without lymphadenopathy, masses or thyromegaly. CARDIAC: Normal S1 and S2. No S3, S4 or murmurs. Rhythm is regular. There is no peripheral edema, cyanosis or pallor. Extremities are warm and well perfused. Capillary refill is less than 2 seconds. No carotid bruits. LUNGS: Clear to auscultation and percussion without rales, rhonchi, wheezing or diminished breath sounds. ABDOMEN: Positive bowel sounds. Soft, nondistended, tenderness to palpation of suprapubic region. No guarding or rebound. No masses. MUSKULOSKELETAL: Adequately aligned spine. ROM intact spine and extremities. No joint erythema or tenderness. Normal muscular development. Normal gait. : Lord catheter in place, dark red blood noted in Lord tubing and bag BACK: Examination of the spine reveals normal gait and posture EXTREMITIES: No significant deformity or joint abnormality. No edema. Peripheral pulses intact. No varicosities. NEUROLOGICAL: CN II-XII intact. Strength and sensation symmetric and intact throughout. Reflexes 2+ throughout. PSYCHIATRIC: The mental examination revealed the patient was oriented to person, place, and time. - Constitutional Vitals: Temp Pulse Resp BP Pulse Ox 98.1 F 84 18 134/68 95 11/20/20 05:10 11/20/20 05:53 11/20/20 05:10 11/20/20 05:53 11/20/20 05:10 General appearance: Present: no acute distress, well-nourished Results - Labs CBC & Chem 7: 11/20/20 06:11 11/20/20 06:11 Labs: Laboratory Last Values WBC 8.9 K/mm3 (4.5-11.0) 11/20/20 06:11 RBC 3.82 M/mm3 (3.65-5.03) 11/20/20 06:11 Hgb 8.0 gm/dl (11.8-15.2) L 11/20/20 06:11 Hct 25.1 % (35.5-45.6) L D 11/20/20 06:11 MCV 66 fl (84-94) L 11/20/20 06:11 MCH 21 pg (28-32) L 11/20/20 06:11 MCHC 32 % (32-34) 11/20/20 06:11 RDW 29.6 % (13.2-15.2) H 11/20/20 06:11 Plt Count 459 K/mm3 (140-440) H 11/20/20 06:11 Add Manual Diff Complete 11/20/20 06:11 Total Counted 100 11/20/20 06:11 Seg Neuts % (Manual) 71.0 % (40.0-70.0) H 11/20/20 06:11 Lymphocytes % (Manual) 21.0 % (13.4-35.0) 11/20/20 06:11 Monocytes % (Manual) 4.0 % (0.0-7.3) 11/20/20 06:11 Eosinophils % (Manual) 4.0 % (0.0-4.3) 11/20/20 06:11 Nucleated RBC % Not Reportable 11/20/20 06:11 Seg Neutrophils # Man 6.3 K/mm3 (1.8-7.7) 11/20/20 06:11 Band Neutrophils # 0.0 K/mm3 11/20/20 06:11 Lymphocytes # (Manual) 1.9 K/mm3 (1.2-5.4) 11/20/20 06:11 Abs React Lymphs (Man) 0.0 K/mm3 11/20/20 06:11 Monocytes # (Manual) 0.4 K/mm3 (0.0-0.8) 11/20/20 06:11 Eosinophils # (Manual) 0.4 K/mm3 (0.0-0.4) 11/20/20 06:11 Basophils # (Manual) 0.0 K/mm3 (0.0-0.1) 11/20/20 06:11 Metamyelocytes # 0.0 K/mm3 11/20/20 06:11 Myelocytes # 0.0 K/mm3 11/20/20 06:11 Promyelocytes # 0.0 K/mm3 11/20/20 06:11 Blast Cells # 0.0 K/mm3 11/20/20 06:11 WBC Morphology Not Reportable 11/20/20 06:11 Hypersegmented Neuts Not Reportable 11/20/20 06:11 Hyposegmented Neuts Not Reportable 11/20/20 06:11 Hypogranular Neuts Not Reportable 11/20/20 06:11 Smudge Cells Not Reportable 11/20/20 06:11 Toxic Granulation Not Reportable 11/20/20 06:11 Toxic Vacuolation Not Reportable 11/20/20 06:11 Dohle Bodies Not Reportable 11/20/20 06:11 Pelger-Huet Anomaly Not Reportable 11/20/20 06:11 Mumtaz Rods Not Reportable 11/20/20 06:11 Platelet Estimate Consistent w auto 11/20/20 06:11 Clumped Platelets Not Reportable 11/20/20 06:11 Plt Clumps, EDTA Not Reportable 11/20/20 06:11 Large Platelets Not Reportable 11/20/20 06:11 Giant Platelets Not Reportable 11/20/20 06:11 Platelet Satelliting Not Reportable 11/20/20 06:11 Plt Morphology Comment Not Reportable 11/20/20 06:11 RBC Morphology Not Reportable 11/20/20 06:11 Dimorphic RBCs Not Reportable 11/20/20 06:11 Polychromasia Not Reportable 11/20/20 06:11 Hypochromasia Not Reportable 11/20/20 06:11 Poikilocytosis Not Reportable 11/20/20 06:11 Anisocytosis 1+ 11/20/20 06:11 Microcytosis Not Reportable 11/20/20 06:11 Macrocytosis Not Reportable 11/20/20 06:11 Spherocytes Not Reportable 11/20/20 06:11 Pappenheimer Bodies Not Reportable 11/20/20 06:11 Sickle Cells Not Reportable 11/20/20 06:11 Target Cells Not Reportable 11/20/20 06:11 Tear Drop Cells Not Reportable 11/20/20 06:11 Ovalocytes Not Reportable 11/20/20 06:11 Helmet Cells Not Reportable 11/20/20 06:11 Saldana-Fonda Bodies Not Reportable 11/20/20 06:11 [place] Rings Not Reportable 11/20/20 06:11 Mab[place]ott Cells Not Reportable 11/20/20 06:11 Bite Cells Not Reportable 11/20/20 06:11 Crenated Cell Not Reportable 11/20/20 06:11 Elliptocytes Not Reportable 11/20/20 06:11 Acanthocytes (Spur) Not Reportable 11/20/20 06:11 Rouleaux Not Reportable 11/20/20 06:11 Hemoglobin C Crystals Not Reportable 11/20/20 06:11 Schistocytes Not Reportable 11/20/20 06:11 Malaria parasites Not Reportable 11/20/20 06:11 Toby Bodies Not Reportable 11/20/20 06:11 Hem Pathologist Commnt No 11/20/20 06:11 Sodium 139 mmol/L (137-145) 11/20/20 06:11 Potassium 4.0 mmol/L (3.6-5.0) D 11/20/20 06:11 Chloride 105.1 mmol/L (98-107) 11/20/20 06:11 Carbon Dioxide 24 mmol/L (22-30) 11/20/20 06:11 Anion Gap 14 mmol/L 11/20/20 06:11 BUN 10 mg/dL (9-20) 11/20/20 06:11 Creatinine 1.2 mg/dL (0.8-1.3) 11/20/20 06:11 Estimated GFR > 60 ml/min 11/20/20 06:11 BUN/Creatinine Ratio 8 % 11/20/20 06:11 Glucose 260 mg/dL (75-100) H 11/20/20 06:11 POC Glucose 226 mg/dL (70-105) H 11/20/20 07:36 Calcium 8.6 mg/dL (8.4-10.2) 11/20/20 06:11 Total Bilirubin 0.20 mg/dL (0.1-1.2) 11/19/20 05:11 AST 13 units/L (5-40) 11/19/20 05:11 ALT 6 units/L (7-56) L 11/19/20 05:11 Alkaline Phosphatase 102 units/L (35-129) 11/19/20 05:11 Total Protein 7.6 g/dL (6.3-8.2) 11/19/20 05:11 Albumin 3.6 g/dL (3.9-5) L 11/19/20 05:11 Albumin/Globulin Ratio 0.9 % 11/19/20 05:11 Urine Color Red (Yellow) 11/19/20 04:47 Urine Turbidity Cloudy (Clear) 11/19/20 04:47 Urine pH 6.0 (5.0-7.0) 11/19/20 04:47 Ur Specific [place] 1.015 (1.003-1.030) 11/19/20 04:47 Urine Protein 100 mg/dl mg/dL (Negative) 11/19/20 04:47 Urine Glucose (UA) >=500 mg/dL (Negative) 11/19/20 04:47 Urine Ketones Neg mg/dL (Negative) 11/19/20 04:47 Urine Blood Mod (Negative) 11/19/20 04:47 Urine Nitrite Neg (Negative) 11/19/20 04:47 Urine Bilirubin Neg (Negative) 11/19/20 04:47 Urine Urobilinogen < 2.0 mg/dL (<2.0) 11/19/20 04:47 Ur Leukocyte Esterase Mod (Negative) 11/19/20 04:47 Urine WBC (Auto) > 182.0 /HPF (0.0-6.0) H 11/19/20 04:47 Urine RBC (Auto) > 182.0 /HPF (0.0-6.0) 11/19/20 04:47 Urine Bacteria (Auto) 4+ /HPF (Negative) 11/19/20 04:47 Urine WBC Clumps 3+ /HPF 11/19/20 04:47 Urine Mucus Few /HPF 11/19/20 04:47 Blood Type O POSITIVE 11/19/20 05:50 Antibody Screen Negative 11/19/20 05:50 Crossmatch See Detail 11/19/20 05:50 Lord/IV: Voiding Method Indwelling Catheter Active Medications - Current Medications Current Medications: Generic Name Dose Route Start Last Admin Trade Name Freq PRN Reason Stop Dose Admin Acetaminophen 650 mg 11/19/20 06:10 Acetaminophen 325 Mg Tab PO Q4H PRN Pain MILD(1-3)/Fever >100.5/LEVINE Hydrocodone Bitart/Acetaminophen 2 each 11/19/20 06:10 Hydrocodone/Acetaminophen 5-325 Mg Tab PO Q6H PRN Pain, Moderate (4-6) Al Hydrox/Mg Hydrox/Simethicone 30 ml 11/20/20 03:24 11/20/20 03:36 Alum-Mag Hydroxide-Simethicone [id number]/5ml Oral Liqd 30 Ml PO 30 ml Q6H PRN Administration Indigestion Albuterol 2.5 mg 11/19/20 06:10 Albuterol 2.5 Mg/3 Ml Nebu IH Q4HRT PRN Shortness Of Breath Carvedilol 3.125 mg 11/19/20 10:00 11/19/20 23:45 Carvedilol 3.125 Mg Tab PO 3.125 mg BID ASIM Administration Dextrose 50 ml 11/19/20 16:01 Dextrose 50% In Water (25gm) 50 Ml Syringe IV Q30MIN PRN Hypoglycemia Protocol Famotidine 10 mg 11/19/20 10:00 11/19/20 23:45 Famotidine 10 Mg Tab PO 10 mg BID ASIM Administration Furosemide 40 mg 11/19/20 10:00 11/19/20 12:01 Furosemide 40 Mg Tab PO 40 mg QDAY ASIM Administration Hydralazine HCl 10 mg 11/19/20 06:13 Hydralazine 20 Mg/1 Ml Inj IV Q6H PRN Blood Pressure Hydromorphone HCl 0.5 mg 11/19/20 06:10 Hydromorphone 1 Mg/1 Ml Inj IV Q3H PRN Pain , Severe (7-10) Ceftriaxone Sodium 2 gm in 100 mls @ 200 mls/hr 11/19/20 07:00 11/19/20 06:51 Rocephin/Ns 2 Gm/100 Ml IV 11/25/20 10:59 200 mls/hr Q24H ASIM Administration Protocol Sodium Chloride 1,000 mls @ 100 mls/hr 11/19/20 12:00 Nacl 0.9% 1000 Ml IV DIRECT ASIM Insulin Glargine 10 units 11/19/20 22:00 11/19/20 22:53 Insulin Glargine 100 Units/Ml SUB-Q Not Given QHS ASIM Insulin Human Lispro 5 unit 11/19/20 16:30 11/19/20 22:53 Insulin Lispro 100 Unit/Ml SUB-Q Not Given ACHS SAIM Isosorbide Dinitrate/Hydralazine 1 each 11/19/20 14:00 11/20/20 05:53 Isosorb Dinit/Hydralazine 20-37.5mg Tab PO 1 each Q8HR ASIM Administration Magnesium Oxide 400 mg 11/19/20 10:00 11/19/20 11:28 Magnesium Oxide 400 Mg Tab PO 400 mg QDAY ASIM Administration Ondansetron HCl 4 mg 11/19/20 06:10 Ondansetron 4 Mg/2 Ml Inj IV Q8H PRN Nausea And Vomiting Phenazopyridine HCl 200 mg 11/19/20 08:00 11/19/20 23:38 Phenazopyridine 200 Mg Tab PO 200 mg TID ASIM Administration Sodium Chloride 10 ml 11/19/20 10:00 11/19/20 23:46 Sodium Chloride 0.9% 10 Ml Flush Syringe IV 10 ml BID ASIM Administration Sodium Chloride 10 ml 11/19/20 06:10 Sodium Chloride 0.9% 10 Ml Flush Syringe IV PRN PRN LINE FLUSH Tamsulosin HCl 0.4 mg 11/19/20 10:00 11/19/20 11:27 Tamsulosin 0.4 Mg Cap PO 0.4 mg QDAY ASIM Administration
[2020-11-20] MEDS: PHENAZOPYRIDINE 200 MG TAB PO SCH ×3 (08:48→21:33)
[2020-11-20] MEDS: FAMOTIDINE 10 MG TAB PO SCH ×2 (09:01→21:31)
[2020-11-20] MEDS: TAMSULOSIN 0.4 MG CAP PO SCH (09:01)
[2020-11-20] MEDS: FUROSEMIDE 40 MG TAB PO SCH (09:01)
[2020-11-20] MEDS: carvediloL 3.125 MG TAB PO SCH ×2 (09:01→21:33)
[2020-11-20] MEDS: MAGNESIUM OXIDE 400 MG TAB PO SCH (09:01)
[2020-11-20] MEDS: SODIUM CHLORIDE 0.9% 1000 ML 1,000 ML IV SCH (10:00)
[2020-11-20] MEDS ORDERED: POLYETHYLENE GLYCOL 3350 17 GM POWDER PO PRN (16:22)
[2020-11-20] MEDS ORDERED: SENNOSIDES ORAL LIQD 8.8 MG/5 ML ORAL LIQD PO PRN (16:23)
[2020-11-20] MEDS: INSULIN GLARGINE 100 UNITS/ML SUB-Q SCH (21:41)
[2020-11-21] MEDS: SODIUM CHLORIDE 0.9% 1000 ML 1,000 ML IV SCH ×3 (04:47→21:31)
[2020-11-21] MEDS: ISOSORB DINIT/HYDRALAZINE 20-37.5MG TAB PO SCH ×3 (05:10→21:30)
[2020-11-21] MEDS: cefTRIAXone/NS 2 GM/100 ML 2 GM/100 ML BAG IV SCH (06:17)
[2020-11-21 06:19] LABS: Hematocrit 23.8 % (35.5-45.6); Hemoglobin 7.6 gm/dl (11.8-15.2)
[2020-11-21] MEDS: INSULIN LISPRO 100 UNIT/ML SUB-Q SCH ×4 (07:30→21:30)
[2020-11-21] MEDS: PHENAZOPYRIDINE 200 MG TAB PO SCH ×3 (08:00→21:31)
--- NOTE | 2020-11-21 08:30 | Progress Note ---
Assessment and Plan Assessment and plan: Assessment and Plan #1 urinary bladder obstruction -History of severe BPH and prior history of hematuria in the past. Patient has had recurrent obstructions and urinary tract infections. He had work-up with urology at [place] in the past where he underwent a cystoscopy.. However patient frequently gets obstructed and will present at [facility]. He denies having a regular outpatient urologist that he follows with. - ER physician already changed the Lord catheter. - would benefit from CBI as patient still continues to have hematuria with large blood clots. - would benefit from urology evaluation. #2 gross hematuria s/p 3 units pRBCs on admission. -Hemoglobin 5.3 on admission. Hemodynamically stable -3 units PRBC transfused -Hemoglobin stable 8.0 (11/20)--> 7.8 (11/21) -H&H tomorrow a.m. #3 BPH -Longstanding history of BPH #4 blood loss anemia -Management as above #5 urinary tract infection -Pyuria and hematuria noted. wbc elevated in UA. 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 #6 Type 2 diabetes with hyperglycemia - Goal BG < 180 -Basal bolus insulin coverage. -Hypoglycemic protocol -Diabetic diet DVT prophylaxis: SCDs Dispo: Patient does not have an outpatient urologist. Typically when obstructed he presents to [facility]. In house Urology was called on this admission on 11/19, declined consult. Transfer was attempted to [facility] on 11/19, declined consult as they were on divert. Working with hospital administration for solution. CM aware. - Patient Problems (1) Obstructive uropathy Current Visit: Yes Status: Acute (2) Acute blood loss anemia Current Visit: Yes Status: Acute (3) Diabetes mellitus with hyperglycemia Current Visit: Yes Status: Acute (4) Anemia Current Visit: Yes Status: Acute Qualifiers: Anemia type: unspecified type Qualified Code(s): D64.9 - Anemia, unspecified (5) Lord catheter in place Current Visit: Yes Status: Acute (6) UTI (urinary tract infection) Current Visit: Yes Status: Acute Qualifiers: Urinary tract infection type: acute cystitis Hematuria presence: with hematuria Qualified Code(s): N30.01 - Acute cystitis with hematuria (7) Gross hematuria Current Visit: Yes Status: Acute (8) DVT prophylaxis Current Visit: No Status: Acute History Interval history: 11/21/2020: Patient this morning had no acute complaints. States that his abdominal pain has significantly improved. He states that he has gotten up to walk around with staff. Examination of the Lord bag reveals continued hematuria. Encouraged patient to continue to drink plenty of fluids p.o. We will continue maintenance IV fluids at 100 cc an hour. 11/20/20: Only complaint today is abdominal pain. patient states that he feels "backed up". He states that he had a bowel movement yesterday but today has only been passing flatus. Encourage the patient work with PT and get up and out of bed to walk around ( only with staff ) when possible. Will place on bowel reg imen. 11/19/20: Patient resting comfortably. Lord in place demonstrating 400 cc dark red blood. Patient states that his suprapubic pain/pressure was significantly worse yesterday and was significantly improved after replacement of his Lord. He does have some suprapubic discomfort on examination. Had a long discussion about patient's urologic history. 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 It was placed at [facility] where he has seen several different urologist. He states that he will typically get obstructed every 1 to 2 months and present to the [place] emergency department. He states that he does not have an outpatient urologist. He is also been evaluated at [facility] 1 time with cystoscopy which she states was completed 6 months ago. He was told at the time that he does not have any findings consistent with malignancy. Hospitalist Physical - Physical exam Narrative exam: Physical Exam: GENERAL APPEARANCE: Well developed, well nourished, alert and cooperative, and appears to be in no acute distress. Pleasant elderly gentleman. HEAD: normocephalic. EYES: PERRL, EOMI. Vision is grossly intact. EARS: No gross deformities NOSE: No nasal discharge. THROAT: Oral cavity and pharynx normal. No inflammation, swelling, exudate, or lesions. Teeth and gingiva in good general condition. NECK: Neck supple, non-tender without lymphadenopathy, masses or thyromegaly. CARDIAC: Normal S1 and S2. No S3, S4 or murmurs. Rhythm is regular. There is no peripheral edema, cyanosis or pallor. Extremities are warm and well perfused. Capillary refill is less than 2 seconds. No carotid bruits. LUNGS: Clear to auscultation and percussion without rales, rhonchi, wheezing or diminished breath sounds. ABDOMEN: Positive bowel sounds. Soft, nondistended, tenderness to palpation of suprapubic region. No guarding or rebound. No masses. MUSKULOSKELETAL: Adequately aligned spine. ROM intact spine and extremities. No joint erythema or tenderness. Normal muscular development. Normal gait. : Lord catheter in place, red blood noted in Lord tubing and bag. BACK: Examination of the spine reveals normal gait and posture EXTREMITIES: No significant deformity or joint abnormality. No edema. Peripheral pulses intact. No varicosities. NEUROLOGICAL: CN II-XII intact. Strength and sensation symmetric and intact throughout. Reflexes 2+ throughout. PSYCHIATRIC: The mental examination revealed the patient was oriented to person, place, and time. - Constitutional Vitals: Temp Pulse Resp BP Pulse Ox 98.1 F 88 16 144/68 96 11/21/20 04:21 11/20/20 21:31 11/21/20 04:21 11/21/20 05:10 11/20/20 21:56 General appearance: Present: no acute distress, well-nourished Results - Labs CBC & Chem 7: 11/21/20 05:26 11/20/20 06:11 Labs: Laboratory Last Values WBC 8.9 K/mm3 (4.5-11.0) 11/20/20 06:11 RBC 3.82 M/mm3 (3.65-5.03) 11/20/20 06:11 Hgb 7.6 gm/dl (11.8-15.2) L 11/21/20 05:26 Hct 23.8 % (35.5-45.6) L 11/21/20 05:26 MCV 66 fl (84-94) L 11/20/20 06:11 MCH 21 pg (28-32) L 11/20/20 06:11 MCHC 32 % (32-34) 11/20/20 06:11 RDW 29.6 % (13.2-15.2) H 11/20/20 06:11 Plt Count 459 K/mm3 (140-440) H 11/20/20 06:11 Add Manual Diff Complete 11/20/20 06:11 Total Counted 100 11/20/20 06:11 Seg Neuts % (Manual) 71.0 % (40.0-70.0) H 11/20/20 06:11 Lymphocytes % (Manual) 21.0 % (13.4-35.0) 11/20/20 06:11 Monocytes % (Manual) 4.0 % (0.0-7.3) 11/20/20 06:11 Eosinophils % (Manual) 4.0 % (0.0-4.3) 11/20/20 06:11 Nucleated RBC % Not Reportable 11/20/20 06:11 Seg Neutrophils # Man 6.3 K/mm3 (1.8-7.7) 11/20/20 06:11 Band Neutrophils # 0.0 K/mm3 11/20/20 06:11 Lymphocytes # (Manual) 1.9 K/mm3 (1.2-5.4) 11/20/20 06:11 Abs React Lymphs (Man) 0.0 K/mm3 11/20/20 06:11 Monocytes # (Manual) 0.4 K/mm3 (0.0-0.8) 11/20/20 06:11 Eosinophils # (Manual) 0.4 K/mm3 (0.0-0.4) 11/20/20 06:11 Basophils # (Manual) 0.0 K/mm3 (0.0-0.1) 11/20/20 06:11 Metamyelocytes # 0.0 K/mm3 11/20/20 06:11 Myelocytes # 0.0 K/mm3 11/20/20 06:11 Promyelocytes # 0.0 K/mm3 11/20/20 06:11 Blast Cells # 0.0 K/mm3 11/20/20 06:11 WBC Morphology Not Reportable 11/20/20 06:11 Hypersegmented Neuts Not Reportable 11/20/20 06:11 Hyposegmented Neuts Not Reportable 11/20/20 06:11 Hypogranular Neuts Not Reportable 11/20/20 06:11 Smudge Cells Not Reportable 11/20/20 06:11 Toxic Granulation Not Reportable 11/20/20 06:11 Toxic Vacuolation Not Reportable 11/20/20 06:11 Dohle Bodies Not Reportable 11/20/20 06:11 Pelger-Huet Anomaly Not Reportable 11/20/20 06:11 Mumtaz Rods Not Reportable 11/20/20 06:11 Platelet Estimate Consistent w auto 11/20/20 06:11 Clumped Platelets Not Reportable 11/20/20 06:11 Plt Clumps, EDTA Not Reportable 11/20/20 06:11 Large Platelets Not Reportable 11/20/20 06:11 Giant Platelets Not Reportable 11/20/20 06:11 Platelet Satelliting Not Reportable 11/20/20 06:11 Plt Morphology Comment Not Reportable 11/20/20 06:11 RBC Morphology Not Reportable 11/20/20 06:11 Dimorphic RBCs Not Reportable 11/20/20 06:11 Polychromasia Not Reportable 11/20/20 06:11 Hypochromasia Not Reportable 11/20/20 06:11 Poikilocytosis Not Reportable 11/20/20 06:11 Anisocytosis 1+ 11/20/20 06:11 Microcytosis Not Reportable 11/20/20 06:11 Macrocytosis Not Reportable 11/20/20 06:11 Spherocytes Not Reportable 11/20/20 06:11 Pappenheimer Bodies Not Reportable 11/20/20 06:11 Sickle Cells Not Reportable 11/20/20 06:11 Target Cells Not Reportable 11/20/20 06:11 Tear Drop Cells Not Reportable 11/20/20 06:11 Ovalocytes Not Reportable 11/20/20 06:11 Helmet Cells Not Reportable 11/20/20 06:11 [place] Bodies Not Reportable 11/20/20 06:11 Melbeta Rings Not Reportable 11/20/20 06:11 [place] Cells Not Reportable 11/20/20 06:11 Bite Cells Not Reportable 11/20/20 06:11 Crenated Cell Not Reportable 11/20/20 06:11 Elliptocytes Not Reportable 11/20/20 06:11 Acanthocytes (Spur) Not Reportable 11/20/20 06:11 Rouleaux Not Reportable 11/20/20 06:11 Hemoglobin C Crystals Not Reportable 11/20/20 06:11 Schistocytes Not Reportable 11/20/20 06:11 Malaria parasites Not Reportable 11/20/20 06:11 Toby Bodies Not Reportable 11/20/20 06:11 Hem Pathologist Commnt No 11/20/20 06:11 Sodium 139 mmol/L (137-145) 11/20/20 06:11 Potassium 4.0 mmol/L (3.6-5.0) D 11/20/20 06:11 Chloride 105.1 mmol/L (98-107) 11/20/20 06:11 Carbon Dioxide 24 mmol/L (22-30) 11/20/20 06:11 Anion Gap 14 mmol/L 11/20/20 06:11 BUN 10 mg/dL (9-20) 11/20/20 06:11 Creatinine 1.2 mg/dL (0.8-1.3) 11/20/20 06:11 Estimated GFR > 60 ml/min 11/20/20 06:11 BUN/Creatinine Ratio 8 % 11/20/20 06:11 Glucose 260 mg/dL (75-100) H 11/20/20 06:11 POC Glucose 132 mg/dL (70-105) H 11/21/20 07:42 Calcium 8.6 mg/dL (8.4-10.2) 11/20/20 06:11 Total Bilirubin 0.20 mg/dL (0.1-1.2) 11/19/20 05:11 AST 13 units/L (5-40) 11/19/20 05:11 ALT 6 units/L (7-56) L 11/19/20 05:11 Alkaline Phosphatase 102 units/L (35-129) 11/19/20 05:11 Total Protein 7.6 g/dL (6.3-8.2) 11/19/20 05:11 Albumin 3.6 g/dL (3.9-5) L 11/19/20 05:11 Albumin/Globulin Ratio 0.9 % 11/19/20 05:11 Urine Color Red (Yellow) 11/19/20 04:47 Urine Turbidity Cloudy (Clear) 11/19/20 04:47 Urine pH 6.0 (5.0-7.0) 11/19/20 04:47 Ur Specific [place] 1.015 (1.003-1.030) 11/19/20 04:47 Urine Protein 100 mg/dl mg/dL (Negative) 11/19/20 04:47 Urine Glucose (UA) >=500 mg/dL (Negative) 11/19/20 04:47 Urine Ketones Neg mg/dL (Negative) 11/19/20 04:47 Urine Blood Mod (Negative) 11/19/20 04:47 Urine Nitrite Neg (Negative) 11/19/20 04:47 Urine Bilirubin Neg (Negative) 11/19/20 04:47 Urine Urobilinogen < 2.0 mg/dL (<2.0) 11/19/20 04:47 Ur Leukocyte Esterase Mod (Negative) 11/19/20 04:47 Urine WBC (Auto) > 182.0 /HPF (0.0-6.0) H 11/19/20 04:47 Urine RBC (Auto) > 182.0 /HPF (0.0-6.0) 11/19/20 04:47 Urine Bacteria (Auto) 4+ /HPF (Negative) 11/19/20 04:47 Urine WBC Clumps 3+ /HPF 11/19/20 04:47 Urine Mucus Few /HPF 11/19/20 04:47 Blood Type O POSITIVE 11/19/20 05:50 Antibody Screen Negative 11/19/20 05:50 Crossmatch See Detail 11/19/20 05:50 Lord/IV: Voiding Method Indwelling Catheter Active Medications - Current Medications Current Medications: Generic Name Dose Route Start Last Admin Trade Name Freq PRN Reason Stop Dose Admin Acetaminophen 650 mg 11/19/20 06:10 Acetaminophen 325 Mg Tab PO Q4H PRN Pain MILD(1-3)/Fever >100.5/LEVINE Hydrocodone Bitart/Acetaminophen 2 each 11/19/20 06:10 Hydrocodone/Acetaminophen 5-325 Mg Tab PO Q6H PRN Pain, Moderate (4-6) Al Hydrox/Mg Hydrox/Simethicone 30 ml 11/20/20 03:24 11/20/20 10:47 Alum-Mag Hydroxide-Simethicone [id number]/5ml Oral Liqd 30 Ml PO 30 ml Q6H PRN Administration Indigestion Albuterol 2.5 mg 11/19/20 06:10 Albuterol 2.5 Mg/3 Ml Nebu IH Q4HRT PRN Shortness Of Breath Carvedilol 3.125 mg 11/19/20 10:00 11/20/20 21:33 Carvedilol 3.125 Mg Tab PO 3.125 mg BID ASIM Administration Dextrose 50 ml 11/19/20 16:01 Dextrose 50% In Water (25gm) 50 Ml Syringe IV Q30MIN PRN Hypoglycemia Protocol Famotidine 10 mg 11/19/20 10:00 11/20/20 21:31 Famotidine 10 Mg Tab PO 10 mg BID ASIM Administration Furosemide 40 mg 11/19/20 10:00 11/20/20 09:01 Furosemide 40 Mg Tab PO 40 mg QDAY ASIM Administration Hydralazine HCl 10 mg 11/19/20 06:13 Hydralazine 20 Mg/1 Ml Inj IV Q6H PRN Blood Pressure Hydromorphone HCl 0.5 mg 11/19/20 06:10 Hydromorphone 1 Mg/1 Ml Inj IV Q3H PRN Pain , Severe (7-10) Ceftriaxone Sodium 2 gm in 100 mls @ 200 mls/hr 11/19/20 07:00 11/21/20 06:17 Rocephin/Ns 2 Gm/100 Ml IV 11/25/20 10:59 200 mls/hr Q24H ASIM Administration Protocol Sodium Chloride 1,000 mls @ 100 mls/hr 11/19/20 12:00 11/21/20 04:47 Nacl 0.9% 1000 Ml IV 100 mls/hr DIRECT ASIM Administration Insulin Glargine 10 units 11/19/20 22:00 11/20/20 21:41 Insulin Glargine 100 Units/Ml SUB-Q 10 units QHS ASIM Administration Insulin Human Lispro 5 unit 11/19/20 16:30 11/20/20 21:41 Insulin Lispro 100 Unit/Ml SUB-Q 5 unit ACHS ASIM Administration Isosorbide Dinitrate/Hydralazine 1 each 11/19/20 14:00 11/21/20 05:10 Isosorb Dinit/Hydralazine 20-37.5mg Tab PO 1 each Q8HR ASIM Administration Magnesium Oxide 400 mg 11/19/20 10:00 11/20/20 09:01 Magnesium Oxide 400 Mg Tab PO 400 mg QDAY ASIM Administration Ondansetron HCl 4 mg 11/19/20 06:10 Ondansetron 4 Mg/2 Ml Inj IV Q8H PRN Nausea And Vomiting Phenazopyridine HCl 200 mg 11/19/20 08:00 11/20/20 21:33 Phenazopyridine 200 Mg Tab PO 200 mg TID ASIM Administration Polyethylene Glycol 17 gm 11/20/20 16:22 Polyethylene Glycol 3350 17 Gm Powder PO BID PRN Constipation Senna 17.6 mg 11/20/20 16:23 Sennosides Oral Liqd 8.8 Mg/5 Ml Oral Liqd PO Q12HR PRN Laxative Effect Sodium Chloride 10 ml 11/19/20 10:00 11/20/20 21:33 Sodium Chloride 0.9% 10 Ml Flush Syringe IV 10 ml BID ASIM Administration Sodium Chloride 10 ml 11/19/20 06:10 Sodium Chloride 0.9% 10 Ml Flush Syringe IV PRN PRN LINE FLUSH Tamsulosin HCl 0.4 mg 11/19/20 10:00 11/20/20 09:01 Tamsulosin 0.4 Mg Cap PO 0.4 mg QDAY ASIM Administration Nutrition/Malnutrition Assess - Dietary Evaluation Nutrition/Malnutrition Findings: Nutrition Notes Start: 11/20/20 12:45 Freq: Status: Active Protocol: Document 11/20/20 12:45 CW (Rec: 11/20/20 12:47 CW [id number]) Nutrition Notes Need for Assessment generated from: MD Order,Education Initial or Follow up Brief Note Labs/Tests BG 373 on adm Height 5 ft Weight 70.307 kg Reedy Body Weight (kg) 48.18 BMI 30.2 Weight Status Obese Subjective/Other Information MD consult for diet education. Pt reports monitoring his DM at home and mornitoring his intake. Pt also reports lapses at times in monitoring his diet but reports being well aware of how to make dietary hanges. Pt Denies wanting addition diet education related to DM. Nutrition Intervention Teaching Recipient Patient Learning Readiness Poor Teaching Methods Discussion Response to Teaching Verbalize understanding Barriers to Learning No Barriers RD phone number provided Yes Patient aware of follow up options No Revisit per MD consult or patient Sign Off request: Additional Comments S/O for education refusal
[2020-11-21] MEDS: TAMSULOSIN 0.4 MG CAP PO SCH (09:38)
[2020-11-21] MEDS: FUROSEMIDE 40 MG TAB PO SCH (09:38)
[2020-11-21] MEDS: FAMOTIDINE 10 MG TAB PO SCH ×2 (09:39→21:31)
[2020-11-21] MEDS: MAGNESIUM OXIDE 400 MG TAB PO SCH (09:39)
[2020-11-21] MEDS: carvediloL 3.125 MG TAB PO SCH ×2 (09:39→21:32)
[2020-11-21] MEDS: INSULIN GLARGINE 100 UNITS/ML SUB-Q SCH (21:30)
[2020-11-22 05:43] LABS: Hematocrit 24.2 % (35.5-45.6); Hemoglobin 7.6 gm/dl (11.8-15.2)
[2020-11-22] MEDS: ISOSORB DINIT/HYDRALAZINE 20-37.5MG TAB PO SCH ×2 (06:11→15:57)
[2020-11-22] MEDS: PHENAZOPYRIDINE 200 MG TAB PO SCH ×2 (09:17→16:02)
[2020-11-22] MEDS: INSULIN LISPRO 100 UNIT/ML SUB-Q SCH ×2 (09:57→12:59)
[2020-11-22] MEDS ORDERED: FERROUS SULFATE 325 MG TAB PO SCH (10:00)
[2020-11-22] MEDS: FAMOTIDINE 10 MG TAB PO SCH (10:01)
[2020-11-22] MEDS: TAMSULOSIN 0.4 MG CAP PO SCH (10:01)
[2020-11-22] MEDS: MAGNESIUM OXIDE 400 MG TAB PO SCH (10:01)
[2020-11-22] MEDS: FUROSEMIDE 40 MG TAB PO SCH (10:01)
[2020-11-22] MEDS: carvediloL 3.125 MG TAB PO SCH (10:02)
[2020-11-22] MEDS: cefTRIAXone/NS 2 GM/100 ML 2 GM/100 ML BAG IV SCH (11:07)
[2020-11-22 12:41] VITALS: BP 140/63
--- NOTE | 2020-11-22 14:38 | Discharge Summary ---
Providers - Providers Date of Admission: 11/19/20 05:46 Date of discharge: 11/22/20 Attending physician: TILA HANSON MD 11/19/20 11:34 Consult to Case Management [CONS] Routine Services Needed at Discharge: Other Notified:: MATILDE Comment:: Transfer patient to provider at [facility]. 11/19/20 16:01 Consult to Dietitian/Nutrition [CONS] Routine Physician Instructions: Reason For Exam: Reason for Consult: Diet education Primary care physician: RADAR SCIENTIST Hospitalization Reason for admission: Hematuria Condition: Fair Hospital course: HPI: 70-year-old male presents emergency room with complaints of severe abdominal pain and a clogged Lord catheter and blood in his catheter. Patient states aurora t he has had difficulties with his catheter over the last 4 days. Patient states that he finally blocked off today and he started having abdominal pain. Patient states he is also noted hematuria in the urine bag that started today. Patient denies fever and chills. Patient denies chest pain and shortness of breath. Patient denies nausea vomiting. Patient states he had a indwelling catheter many times. Patient states he is has a clogged catheter many times as well. In the emergency room patient is found to have hemoglobin of 5.3 and hematocrit 18.4. ER physician change the Lord catheter Interval history: 11/22/2020: Patient had no acute complaints this morning. He states that he is feeling well. Lord bag appears to be clearing up. Hemoglobin was stable this morning and as were vital signs. Discussed at length with the patient today about not having a urology service at this facility that would be able to see him. We talked about the potential of transfer to a tertiary center versus set up for an outpatient urologist and patient agreed to see an outpatient urologist. He has an appointment set up for November at [address] Bear at [facility]. He will be discharged home with a prescription for antibiotics and iron tablets. 11/21/2020: Patient this morning had no acute complaints. States that his abdominal pain has significantly improved. He states that he has gotten up to walk around with staff. Examination of the Lord bag reveals continued hematuria. Encouraged patient to continue to drink plenty of fluids p.o. We will continue maintenance IV fluids at 100 cc an hour. 11/20/20: Only complaint today is abdominal pain. patient states that he feels "backed up". He states that he had a bowel movement yesterday but today has only been passing flatus. Encourage the patient work with PT and get up and out of bed to walk around ( only with staff ) when possible. Will place on bowel regimen. 11/19/20: Patient resting comfortably. Lord in place demonstrating 400 cc dark red blood. Patient states that his suprapubic pain/pressure was significantly worse yesterday and was significantly improved after replacement of his Lord. He does have some suprapubic discomfort on examination. Had a long discussion about patient's urologic history. 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 It was placed at [facility] where he has seen several different urologist. He states that he will typically get obstructed every 1 to 2 months and present to the [place] emergency department. He states that he does not have an outpatient urologist. He is also been evaluated at [facility] 1 time with cystoscopy which she states was completed 6 months ago. He was told at the time that he does not have any findings consistent with malignancy. Assessment and Plan #1 urinary bladder obstruction -History of severe BPH and prior history of hematuria in the past. Patient has had recurrent obstructions and urinary tract infections. He had work-up with urology at [facility] in the past where he underwent a cystoscopy.. However patient frequently gets obstructed and will present at [facility]. He denies having a regular outpatient urologist that he follows with. - ER physician already changed the Lord catheter. - would benefit from CBI as patient still continues to have hematuria with large blood clots. - would benefit from urology evaluation. #2 gross hematuria s/p 3 units pRBCs on admission. -Hemoglobin 5.3 on admission. Hemodynamically stable -3 units PRBC transfused -Hemoglobin stable 8.0 (11/20)--> 7.8 (11/21) -H&H tomorrow a.m. #3 BPH -Longstanding history of BPH #4 blood loss anemia -Management as above #5 urinary tract infection -Pyuria and hematuria noted. wbc elevated in UA. 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 #6 Type 2 diabetes with hyperglycemia - Goal BG < 180 -Basal bolus insulin coverage. -Hypoglycemic protocol -Diabetic diet DVT prophylaxis: SCDs Dispo: Patient does not have an outpatient urologist. Typically when obstructed he presents to [facility]. In house Urology was called on this admission on 11/19, declined consult. Transfer was attempted to [facility] on 11/19, declined consult as they were on divert. Working with hospital administration for solution. CM aware. Multiple facilities ([facility], [facility], [facility], [facility]) were contacted for potential transfer. They have all declined. Given the patient's stable vitals, stable hemoglobin, decreased hematuria, Patient will be discharged home and has a urology appointment set up for this at 9 AM. Disposition: TO HOME OR SELFCARE Final Discharge Diagnosis (Prints w/discharge instructions): Hematuria Time spent for discharge: 25 - Discharge Diagnoses (1) Obstructive uropathy Status: Acute (2) Acute blood loss anemia Status: Acute (3) Diabetes mellitus with hyperglycemia Status: Acute (4) Anemia Status: Acute Qualifiers: Anemia type: unspecified type Qualified Code(s): D64.9 - Anemia, unspecified (5) Lord catheter in place Status: Acute (6) UTI (urinary tract infection) Status: Acute Qualifiers: Urinary tract infection type: acute cystitis Hematuria presence: with hematuria Qualified Code(s): N30.01 - Acute cystitis with hematuria (7) Gross hematuria Status: Acute (8) DVT prophylaxis Status: Acute Core Measure Documentation - Palliative Care Palliative Care/ Comfort Measures: Not Applicable - Core Measures Any of the following diagnoses?: none Exam - Physical Exam Narrative exam: Physical Exam: GENERAL APPEARANCE: Well developed, well nourished, alert and cooperative, and appears to be in no acute distress. Pleasant elderly gentleman. HEAD: normocephalic. EYES: PERRL, EOMI. Vision is grossly intact. EARS: No gross deformities NOSE: No nasal discharge. THROAT: Oral cavity and pharynx normal. No inflammation, swelling, exudate, or lesions. Teeth and gingiva in good general condition. NECK: Neck supple, non-tender without lymphadenopathy, masses or thyromegaly. CARDIAC: Normal S1 and S2. No S3, S4 or murmurs. Rhythm is regular. There is no peripheral edema, cyanosis or pallor. Extremities are warm and well perfused. Capillary refill is less than 2 seconds. No carotid bruits. LUNGS: Clear to auscultation and percussion without rales, rhonchi, wheezing or diminished breath sounds. ABDOMEN: Positive bowel sounds. Soft, nondistended, tenderness to palpation of suprapubic region. No guarding or rebound. No masses. MUSKULOSKELETAL: Adequately aligned spine. ROM intact spine and extremities. No joint erythema or tenderness. Normal muscular development. Normal gait. : Lord catheter in place, urine clearing up in Lord bag. BACK: Examination of the spine reveals normal gait and posture EXTREMITIES: No significant deformity or joint abnormality. No edema. Peripheral pulses intact. No varicosities. NEUROLOGICAL: CN II-XII intact. Strength and sensation symmetric and intact throughout. Reflexes 2+ throughout. PSYCHIATRIC: The mental examination revealed the patient was oriented to person, place, and time. - Constitutional Vitals: Temp Pulse Resp BP Pulse Ox 98.1 F 79 22 140/63 94 11/22/20 11:25 11/22/20 11:25 11/22/20 11:25 11/22/20 11:25 11/22/20 11:25 Plan Activity: no restrictions Weight Bearing Status: Weight Bear as Tolerated Diet: regular Plan of Treatment: Urban Ortega. Your evaluated for hematuria. Unfortunately we do not have a urology service that we will see patients at our facility. We attempted to arrange transfer to tertiary facilities but ultimately were rejected at all of these facilities. However, we have worked to arrange for an outpatient appointment with a urologist on November 25 at 9 AM. His information is listed below. We wish you the best of luck and [facility]. Your only discharge medication will be iron supplementation which has already been sent to your pharmacy. [facility] Dr. Sal Bear Address: [address] [place] [address], [place] [address] Follow up with: PRIMARY CARE, [Primary Care Provider] - 7 Days Prescriptions: Ferrous Sulfate [Feosol 325 MG tab] 325 mg PO QDAY 30 Days #30 tablet
== END 2020-11-22 18:21 | disposition home or self-care (01) ==
LOC: ED 04:03 → 3A 05:46
PROVIDERS: ADMIT Hospitalist; ATTEND Internal Medicine
DX: T83.018A Breakdown (mechanical) of other urinary catheter, initial encounter (principal); D50.0 Iron deficiency anemia secondary to blood loss (chronic); N39.0 Urinary tract infection, site not specified; N13.9 Obstructive and reflux uropathy, unspecified; N40.0 Benign prostatic hyperplasia without lower urinary tract symptoms; I10 Essential (primary) hypertension; R31.0 Gross hematuria; E11.65 Type 2 diabetes mellitus with hyperglycemia; R10.30 Lower abdominal pain, unspecified; Z79.84 Long term (current) use of oral hypoglycemic drugs; Z79.899 Other long term (current) drug therapy; Z98.890 Other specified postprocedural states
CPT/HCPCS: 36415; 36430; 74176; 80048; 80053; 81001; 82962; 85014; 85018; 85025; 85027; 86850; 86900; 86901; 86920; 96361; 96365; 96366; 96375; 99291; G0378; J0696; J7030; J7040; P9016; 85007; J1815

== ENCOUNTER 2021-03-08 01:27 | Emergency (ER) | payer MEDICARE ==
--- NOTE | 2021-03-08 02:14 | Emergency Department Report ---
ED Male HPI - General Chief complaint: Urogenital-Male Stated complaint: PELVIC PAIN/BLEEDING Time Seen by Provider: 03/08/21 02:04 Source: EMS Mode of arrival: Stretcher Limitations: Physical Limitation - History of Present Illness Initial comments: Patient is 70 years old male with history of hypertension, diabetes and benign prostatic hypertrophy with a Lord catheter in place. Patient brought to the emergency room from home via EMS for evaluation of bleeding from the Lord catheter and pain in the penis area and suprapubic area. Patient stated that this started approximately few hours ago. Patient denied any fever or chills. Patient also denied any nausea or vomiting. MD Complaint: other -: hour(s) - Related Data Previous Rx's Medication Instructions Recorded Last Taken Type Furosemide [Lasix TAB] 40 mg PO QDAY #30 tablet 06/13/19 Unknown Rx Isosorb Dinit/Hydralazine [Bidil 1 each PO Q8HR #90 tablet 06/13/19 Unknown Rx 20/37.5MG] Sitagliptin Phosphate [Januvia] 100 mg PO DAILY #30 tablet 06/13/19 Unknown Rx Tamsulosin [Flomax] 0.4 mg PO QDAY #90 cap 06/13/19 Unknown Rx carvediloL [Coreg] 3.125 mg PO BID #60 tablet 06/13/19 Unknown Rx metFORMIN XR [Glucophage XR] 500 mg PO QDDIAB #30 tablet 06/13/19 Unknown Rx Ferrous Sulfate [Feosol 325 MG tab] 325 mg PO QDAY 30 Days #30 tablet 11/22/20 Unknown Rx Allergies Allergy/AdvReac Type Severity Reaction Status Date / Time No Known Allergies Allergy Verified 06/11/19 13:59 ED Review of Systems ROS: Stated complaint: PELVIC PAIN/BLEEDING Other details as noted in HPI Comment: All other systems reviewed and negative Constitutional: denies: chills, fever Respiratory: denies: cough, shortness of breath, SOB with exertion Cardiovascular: denies: chest pain, palpitations Genitourinary: urgency, dysuria Musculoskeletal: denies: back pain Neurological: denies: headache, weakness ED Past Medical Hx - Past Medical History Hx Hypertension: Yes Hx CVA: No Hx Heart Attack/AMI: No Hx Congestive Heart Failure: No Hx Diabetes: Yes (IDDM) Hx Deep Vein Thrombosis: No Hx Pulmonary Embolism: No Hx GERD: No Hx Liver Disease: No Hx Renal Disease: No Hx Sickle Cell Disease: No Hx Arthritis: No Hx Headaches / Migraines: No Hx Seizures: No Hx Kidney Stones: No Hx Psychiatric Treatment: No Hx Asthma: No Hx COPD: No Hx Tuberculosis: No Hx Dementia: No Hx HIV: No - Surgical History Additional Surgical History: Removal of left great toe toenail 06/06/2019 - Social History Smoking Status: Never Smoker Substance Use Type: None - Medications Home Medications: Home Medications Medication Instructions Recorded Confirmed Last Taken Type Furosemide [Lasix TAB] 40 mg PO QDAY #30 tablet 06/13/19 11/20/20 Unknown Rx Isosorb Dinit/Hydralazine [Bidil 1 each PO Q8HR #90 tablet 06/13/19 11/20/20 Unknown Rx 20/37.5MG] Sitagliptin Phosphate [Januvia] 100 mg PO DAILY #30 tablet 06/13/19 11/20/20 Unknown Rx Tamsulosin [Flomax] 0.4 mg PO QDAY #90 cap 06/13/19 11/20/20 Unknown Rx carvediloL [Coreg] 3.125 mg PO BID #60 tablet 06/13/19 11/20/20 Unknown Rx metFORMIN XR [Glucophage XR] 500 mg PO QDDIAB #30 tablet 06/13/19 11/20/20 Unknown Rx Ferrous Sulfate [Feosol 325 MG tab] 325 mg PO QDAY 30 Days #30 tablet 11/22/20 Unknown Rx ED Physical Exam - General Limitations: Physical Limitation General appearance: alert, in no apparent distress - Head Head exam: Present: atraumatic, normocephalic - Eye Eye exam: Present: normal appearance - ENT ENT exam: Present: normal exam, normal orophraynx, mucous membranes moist - Neck Neck exam: Present: normal inspection, full ROM. Absent: tenderness, meningismus - Respiratory Respiratory exam: Present: normal lung sounds bilaterally - Cardiovascular Cardiovascular Exam: Present: regular rate, normal rhythm, normal heart sounds - GI/Abdominal GI/Abdominal exam: Present: soft, distended, normal bowel sounds. Absent: tenderness, guarding, rebound, rigid, organomegaly, mass, bruit, pulsatile mass, hernia - Extremities Exam Extremities exam: Present: normal inspection, full ROM, normal capillary refill. Absent: tenderness - Back Exam Back exam: Present: normal inspection, full ROM. Absent: CVA tenderness (R), CVA tenderness (L) - Neurological Exam Neurological exam: Present: alert, oriented X3, CN II-XII intact - Psychiatric Psychiatric exam: Present: normal mood - Skin Skin exam: Present: warm, intact, normal color ED Course Vital Signs 03/08/21 03/08/21 03/08/21 01:46 03:01 03:52 Temperature 98.4 F Pulse Rate 108 H 102 H Respiratory 20 22 Rate Blood Pressure 142/89 135/75 [Left] O2 Sat by Pulse 100 98 100 Oximetry 03/08/21 04:46 Temperature Pulse Rate 93 H Respiratory 18 Rate Blood Pressure 124/65 [Left] O2 Sat by Pulse Oximetry ED Medical Decision Making - Lab Data Result diagrams: 03/08/21 02:24 03/08/21 02:24 - Medical Decision Making Patient is 70 years old male with history of hypertension, diabetes and benign prostatic hypertrophy with a Lord catheter in place. Patient brought to the emergency room from home via EMS for evaluation of bleeding from the Lord catheter and pain in the penis area and suprapubic area. Patient stated that this started approximately few hours ago. Patient denied any fever or chills. Patient also denied any nausea or vomiting. Lord catheter replaced. Patient given morphine for pain. Patient stated that he feels much better. Labs reviewed and showed elevated blood glucose. Patient stated that he is not taking his medication as supposed to. I counseled the patient about medication compliance. Patient received insulin in the emergency room. Patient strongly advised to follow-up with his primary doctor in the next 2 to 3 days and to return to the ER if he develop any new symptoms. Critical care attestation.: If time is entered above; I have spent that time in minutes in the direct care of this critically ill patient, excluding procedure time. ED Disposition Clinical Impression: Urinary retention, Lord catheter in place Disposition: HOME / SELF CARE / HOMELESS Is pt being admited?: No Condition: Stable Instructions: Acute Urinary Retention, Male, [id number], Indwelling Urinary Catheter Care, Adult Referrals: PRIMARY CARE, [Primary Care Provider] - 3-5 Days
[2021-03-08 02:43] LABS: Basophils # (Auto) 0.1 K/mm3 (0.0-0.1); Basophils % (Auto) 0.6 % (0.0-1.8); Eosinophils # (Auto) 0.1 K/mm3 (0.0-0.4); Eosinophils % (Auto) 1.2 % (0.0-4.3); Lymphocytes # (Auto) 1.5 K/mm3 (1.2-5.4); Lymphocytes % (Auto) 15.3 % (13.4-35.0); Mean Corpuscular HGB Conc 30 % (32-34); Monocytes # (Auto) 0.7 K/mm3 (0.0-0.8); Monocytes % (Auto) 6.9 % (0.0-7.3); Platelet Count 210 K/mm3 (140-440); Red Blood Count 4.87 M/mm3 (3.65-5.03)
[2021-03-08 02:45] LABS: Hematocrit 32.9 % (35.5-45.6); Hemoglobin 9.8 gm/dl (11.8-15.2); Mean Corpuscular Volume 68 fl (84-94)
[2021-03-08 03:01] LABS: BUN/Creatinine Ratio 9; Blood Urea Nitrogen 12 mg/dL (9-20); Hemolysis Index 0
[2021-03-08] MEDS ORDERED: ONDANSETRON 4 MG/2 ML INJ IM ONE (03:02)
[2021-03-08] MEDS ORDERED: MORPHINE 4 MG/1 ML INJ IM ONE ×3 (03:02→03:06)
[2021-03-08] MEDS ORDERED: MORPHINE 2 MG/1 ML INJ ONE (03:05)
[2021-03-08] MEDS ORDERED: INSULIN REGULAR, HUMAN 100 UNITS/1 ML IV ONE (03:44)
[2021-03-08] MEDS ORDERED: SODIUM CHLORIDE 0.9% 1000 ML 1,000 ML IV ONE (03:44)
[2021-03-08 04:47] VITALS: BP 124/65
[2021-03-08 06:08] LABS: Bilirubin,Urine NEG (Negative); Blood,Urine LG (Negative); Color,Urine Yellow (Yellow); Urobilinogen,Urine < 2.0 mg/dL (<2.0)
[2021-03-08 06:15] LABS: RBC,Urine > 182.0 /HPF (0.0-6.0); WBC,Urine > 182.0 /HPF (0.0-6.0)
== END 2021-03-08 07:30 | disposition home or self-care (01) ==
LOC: ED 01:27
DX: R33.9 Retention of urine, unspecified (principal); T83.098A Other mechanical complication of other urinary catheter, initial encounter; I10 Essential (primary) hypertension; E11.9 Type 2 diabetes mellitus without complications; Y74.8 Miscellaneous general hospital and personal-use devices associated with adverse incidents, not elsewhere classified; Y92.89 Other specified places as the place of occurrence of the external cause
CPT/HCPCS: 36415; 51702; 80048; 81001; 82962; 85025; 96361; 96372; 96374; 99284; J2270; J2405; J7030; J1815

== ENCOUNTER 2021-09-10 18:42 | Emergency (ER) | payer MEDICARE ==
[2021-09-10] MEDS ORDERED: MORPHINE 4 MG/1 ML INJ IV ONE (19:32)
[2021-09-10] MEDS ORDERED: ONDANSETRON 4 MG/2 ML INJ IV ONE (19:32)
--- NOTE | 2021-09-10 19:47 | Emergency Department Report ---
ED Male HPI - General Chief complaint: Urogenital-Male Stated complaint: ABD PAIN Time Seen by Provider: 09/10/21 19:30 Source: EMS Mode of arrival: Stretcher Limitations: No Limitations - History of Present Illness Initial comments: 71 yo male with a history of hypertension, diabetes and benign prostatic hypertrophy with a Lord catheter in place presents to the hospital complaining of pubic abdominal pain and nondraining Lord catheter. Patient also has residual bloody urine in his Lord catheter. Pain is moderate to severe in intensity worse with palpation and without alleviating factors. Patient denies nausea, vomiting, or fever. Similar issues in the past with obstructed Lord catheter. Patient does not take blood thinner - Related Data Previous Rx's Medication Instructions Recorded Last Taken Type Furosemide [Lasix TAB] 40 mg PO QDAY #30 tablet 06/13/19 Unknown Rx Isosorb Dinit/Hydralazine [Bidil 1 each PO Q8HR #90 tablet 06/13/19 Unknown Rx 20/37.5MG] Sitagliptin Phosphate [Januvia] 100 mg PO DAILY #30 tablet 06/13/19 Unknown Rx Tamsulosin [Flomax] 0.4 mg PO QDAY #90 cap 06/13/19 Unknown Rx carvediloL [Coreg] 3.125 mg PO BID #60 tablet 06/13/19 Unknown Rx metFORMIN XR [Glucophage XR] 500 mg PO QDDIAB #30 tablet 06/13/19 Unknown Rx Ferrous Sulfate [Feosol 325 MG tab] 325 mg PO QDAY 30 Days #30 tablet 11/22/20 Unknown Rx Sulfamethoxazole/Trimethoprim 1 each PO BID #14 tablet 03/08/21 Unknown Rx [Bactrim DS TAB] cefUROXime [Ceftin] 500 mg PO Q12H #14 tab 09/10/21 Unknown Rx Allergies Allergy/AdvReac Type Severity Reaction Status Date / Time No Known Allergies Allergy Verified 06/11/19 13:59 ED Review of Systems ROS: Stated complaint: ABD PAIN Other details as noted in HPI Comment: All other systems reviewed and negative ED Past Medical Hx - Past Medical History Hx Hypertension: Yes Hx CVA: No Hx Heart Attack/AMI: No Hx Congestive Heart Failure: No Hx Diabetes: Yes (IDDM) Hx Deep Vein Thrombosis: No Hx Pulmonary Embolism: No Hx GERD: No Hx Liver Disease: No Hx Renal Disease: No Hx Sickle Cell Disease: No Hx Arthritis: No Hx Headaches / Migraines: No Hx Seizures: No Hx Kidney Stones: No Hx Psychiatric Treatment: No Hx Asthma: No Hx COPD: No Hx Tuberculosis: No Hx Dementia: No Hx HIV: No - Surgical History Additional Surgical History: Removal of left great toe toenail 06/06/2019 - Social History Smoking Status: Never Smoker Substance Use Type: None - Medications Home Medications: Home Medications Medication Instructions Recorded Confirmed Last Taken Type Furosemide [Lasix TAB] 40 mg PO QDAY #30 tablet 06/13/19 11/20/20 Unknown Rx Isosorb Dinit/Hydralazine [Bidil 1 each PO Q8HR #90 tablet 06/13/19 11/20/20 Unknown Rx 20/37.5MG] Sitagliptin Phosphate [Januvia] 100 mg PO DAILY #30 tablet 06/13/19 11/20/20 Unknown Rx Tamsulosin [Flomax] 0.4 mg PO QDAY #90 cap 06/13/19 11/20/20 Unknown Rx carvediloL [Coreg] 3.125 mg PO BID #60 tablet 06/13/19 11/20/20 Unknown Rx metFORMIN XR [Glucophage XR] 500 mg PO QDDIAB #30 tablet 06/13/19 11/20/20 Unknown Rx Ferrous Sulfate [Feosol 325 MG tab] 325 mg PO QDAY 30 Days #30 tablet 11/22/20 Unknown Rx Sulfamethoxazole/Trimethoprim 1 each PO BID #14 tablet 03/08/21 Unknown Rx [Bactrim DS TAB] cefUROXime [Ceftin] 500 mg PO Q12H #14 tab 09/10/21 Unknown Rx ED Physical Exam - General Limitations: No Limitations - Other Other exam information: General: No acute distress Head: Atraumatic Eyes: normal appearance ENT: Moist mucous membranes Neck: Normal appearance, no midline tenderness Chest: Clear to auscultation bilaterally CV: Regular rate and rhythm Abdomen: Soft, normal bowel sounds, suprapubic tenderness with distended bladder at area of umbilicus. : Uncircumcised male with Lord cath in place with bloody urine drainage Back: Normal inspection Extremity: Normal inspection, full range of motion Neuro: Alert O x 3, no facial asymmetry, speech clear, no gross motor sensory deficit Psych: Appropriate behavior Skin: No rash ED Course Vital Signs 09/10/21 09/10/21 19:28 20:05 Pulse Rate 89 90 Respiratory 16 18 Rate Blood Pressure 127/75 [Left] O2 Sat by Pulse 99 98 Oximetry ED Medical Decision Making - Lab Data Result diagrams: 09/10/21 19:59 09/10/21 19:59 Lab Results 09/10/21 09/10/21 09/10/21 Range/Units 19:59 19:59 20:07 WBC 12.5 H (4.5-11.0) K/mm3 RBC 4.44 (3.65-5.03) M/mm3 Hgb 8.9 L (11.8-15.2) gm/dl Hct 30.4 L (35.5-45.6) % MCV 69 L (84-94) fl MCH 20 L (28-32) pg MCHC 29 L (32-34) % RDW 22.1 H (13.2-15.2) % Plt Count 157 (140-440) K/mm3 Lymph % (Auto) 9.7 L (13.4-35.0) % Clayton % (Auto) 5.9 (0.0-7.3) % Eos % (Auto) 0.3 (0.0-4.3) % Baso % (Auto) 0.5 (0.0-1.8) % Lymph # (Auto) 1.2 (1.2-5.4) K/mm3 Clayton # (Auto) 0.7 (0.0-0.8) K/mm3 Eos # (Auto) 0.0 (0.0-0.4) K/mm3 Baso # (Auto) 0.1 (0.0-0.1) K/mm3 Seg Neutrophils % 83.6 H (40.0-70.0) % Seg Neutrophils # 10.5 H (1.8-7.7) K/mm3 Sodium 131 L (137-145) mmol/L Potassium 4.1 (3.6-5.0) mmol/L Chloride 94.5 L (98-107) mmol/L Carbon Dioxide 23 (22-30) mmol/L Anion Gap 18 mmol/L BUN 16 (9-20) mg/dL Creatinine 1.3 (0.8-1.3) mg/dL Estimated GFR > 60 ml/min BUN/Creatinine Ratio 12 % Glucose 627 H* (75-100) mg/dL Calcium 8.7 (8.4-10.2) mg/dL Urine Color Straw (Yellow) Urine Turbidity Clear (Clear) Urine pH 6.0 (5.0-7.0) Ur Specific Odum 1.023 (1.003-1.030) Urine Protein 30 mg/dl (Negative) mg/dL Urine Glucose (UA) >=500 (Negative) mg/dL Urine Ketones Neg (Negative) mg/dL Urine Blood Lg (Negative) Urine Nitrite Neg (Negative) Urine Bilirubin Neg (Negative) Urine Urobilinogen < 2.0 (<2.0) mg/dL Ur Leukocyte Esterase Sm (Negative) Urine WBC (Auto) 25.0 H (0.0-6.0) /HPF Urine RBC (Auto) 13.0 (0.0-6.0) /HPF Urine Bacteria (Auto) 1+ (Negative) /HPF Urine Yeast (Budding) Few /HPF - Medical Decision Making 71-year-old male presents to the hospital urine retention. Patient had a 16 [place] catheter placed by RN with drainage of 900 mL of urine and patient had relief in pain. He did not require pain medication. Glucose was elevated. Patient admits to not taking his diabetes medication today. He states he has DM meds at home. No signs of DKA today. UA reveals a UTI. He was treated with IV Rocephin, IV fluids, and IV insulin. He will be discharged once his glucose is less than 300 Critical Care Time: No Critical care attestation.: If time is entered above; I have spent that time in minutes in the direct care of this critically ill patient, excluding procedure time. ED Disposition Clinical Impression: Obstructed Lord catheter, Diabetes mellitus with hyperglycemia, Encounter for Lord catheter replacement, Acute urinary retention, UTI (urinary tract infection) Disposition: 01 HOME / SELF CARE / HOMELESS Is pt being admited?: No Condition: Stable Instructions: Hyperglycemia, Indwelling Urinary Catheter Care, Adult, [id number], Diabetes Mellitus Type 2 in Adults (ED), Urinary Tract Infection, Adult Additional Instructions: Follow-up with your doctor or doctor/clinic provided. Return if symptoms worsen as indicated by your discharge instructions. Prescriptions: cefUROXime [Ceftin] 500 mg PO Q12H #14 tab Referrals: MILLY SORIA MD [Primary Care Provider] - 3-5 Days (Primary care doctor) GUI ROBERTSON MD [Staff Physician] - 3-5 Days (Urologist)
[2021-09-10 20:28] LABS: Bacteria,Urine 1+ /HPF (Negative); Bilirubin,Urine NEG (Negative); Blood,Urine LG (Negative); Color,Urine Straw (Yellow); Urobilinogen,Urine < 2.0 mg/dL (<2.0)
[2021-09-10 20:35] LABS: BUN/Creatinine Ratio 12; Blood Urea Nitrogen 16 mg/dL (9-20); Calcium 8.7 mg/dL (8.4-10.2); Hemolysis Index 8
[2021-09-10 21:00] LABS: Basophils # (Auto) 0.1 K/mm3 (0.0-0.1); Basophils % (Auto) 0.5 % (0.0-1.8); Eosinophils % (Auto) 0.3 % (0.0-4.3); Lymphocytes # (Auto) 1.2 K/mm3 (1.2-5.4); Lymphocytes % (Auto) 9.7 % (13.4-35.0); Mean Corpuscular HGB Conc 29 % (32-34); Monocytes # (Auto) 0.7 K/mm3 (0.0-0.8); Monocytes % (Auto) 5.9 % (0.0-7.3); Red Blood Count 4.44 M/mm3 (3.65-5.03)
[2021-09-10 21:04] LABS: Hematocrit 30.4 % (35.5-45.6); Hemoglobin 8.9 gm/dl (11.8-15.2); Mean Corpuscular Volume 69 fl (84-94); Platelet Count 157 K/mm3 (140-440); Red Cell Distribution Width 22.1 % (13.2-15.2)
[2021-09-10] MEDS ORDERED: cefTRIAXone/NS 1 GM/50 ML 1 GM/50 ML BAG IV ONE (21:15)
[2021-09-10] MEDS ORDERED: SODIUM CHLORIDE 0.9% 1000 ML 1,000 ML IV ONE ×2 (21:17→22:20)
[2021-09-10] MEDS ORDERED: INSULIN REGULAR, HUMAN 100 UNITS/1 ML IV ONE (21:21)
[2021-09-10 23:48] VITALS: BP 141/87
== END 2021-09-11 00:14 | disposition home or self-care (01) ==
LOC: ED 18:42
DX: T83.098A Other mechanical complication of other urinary catheter, initial encounter (principal); E11.65 Type 2 diabetes mellitus with hyperglycemia; Z46.6 Encounter for fitting and adjustment of urinary device; R33.9 Retention of urine, unspecified; N39.0 Urinary tract infection, site not specified
CPT/HCPCS: 36415; 51702; 80048; 81001; 82962; 85025; 87086; 96365; 96375; 99284; J0696; J7030; Q9967; J1815

== ENCOUNTER 2021-10-12 10:36 | Inpatient (IN) | payer MEDICAID, MEDICARE ==
[2021-10-12] MEDS ORDERED: ONDANSETRON 4 MG/2 ML INJ IV ONE (11:38)
[2021-10-12] MEDS ORDERED: SODIUM CHLORIDE 0.9% 1000 ML 1,000 ML IV ONE ×2 (11:38→13:17)
--- NOTE | 2021-10-12 11:42 | Emergency Department Report ---
ED Male HPI - General Chief complaint: Urogenital-Male Stated complaint: CLOGGED SANTOS Time Seen by Provider: 10/12/21 11:16 Source: patient, EMS Mode of arrival: Stretcher Limitations: No Limitations - History of Present Illness Initial comments: 71 YO m with hx of cva, enlarged prostate with chronic indwelling santos. Here with clogged santos since this morning. Patient reports that he has had no blood in urine. He does note chills, no fevers. He has had no chest pain no shortness of breath. He endorses nausea no vomiting he has had some abdominal pain but this is since resolved. - Related Data Previous Rx's Medication Instructions Recorded Last Taken Type Furosemide [Lasix TAB] 40 mg PO QDAY #30 tablet 06/13/19 Unknown Rx Isosorb Dinit/Hydralazine [Bidil 1 each PO Q8HR #90 tablet 06/13/19 Unknown Rx 20/37.5MG] Sitagliptin Phosphate [Januvia] 100 mg PO DAILY #30 tablet 06/13/19 Unknown Rx Tamsulosin [Flomax] 0.4 mg PO QDAY #90 cap 06/13/19 Unknown Rx carvediloL [Coreg] 3.125 mg PO BID #60 tablet 06/13/19 Unknown Rx metFORMIN XR [Glucophage XR] 500 mg PO QDDIAB #30 tablet 06/13/19 Unknown Rx Ferrous Sulfate [Feosol 325 MG tab] 325 mg PO QDAY 30 Days #30 tablet 11/22/20 Unknown Rx Sulfamethoxazole/Trimethoprim 1 each PO BID #14 tablet 03/08/21 Unknown Rx [Bactrim DS TAB] cefUROXime [Ceftin] 500 mg PO Q12H #14 tab 09/10/21 Unknown Rx Allergies Allergy/AdvReac Type Severity Reaction Status Date / Time No Known Allergies Allergy Verified 10/12/21 10:41 ED Review of Systems ROS: Stated complaint: CLOGGED SANTOS Other details as noted in HPI Constitutional: chills. denies: fever Eyes: denies: eye pain, eye discharge, vision change ENT: denies: ear pain, throat pain Respiratory: denies: cough, shortness of breath, wheezing Cardiovascular: denies: chest pain, palpitations Endocrine: no symptoms reported Gastrointestinal: nausea. denies: abdominal pain, diarrhea, constipation Genitourinary: denies: urgency, dysuria, frequency, hematuria Musculoskeletal: denies: back pain, joint swelling, arthralgia Skin: denies: rash, lesions Neurological: denies: headache, weakness, paresthesias Psychiatric: denies: anxiety, depression Hematological/Lymphatic: denies: easy bleeding, easy bruising ED Past Medical Hx - Past Medical History Hx Hypertension: Yes Hx CVA: No Hx Heart Attack/AMI: No Hx Congestive Heart Failure: No Hx Diabetes: Yes (IDDM) Hx Deep Vein Thrombosis: No Hx Pulmonary Embolism: No Hx GERD: No Hx Liver Disease: No Hx Renal Disease: No Hx Sickle Cell Disease: No Hx Arthritis: No Hx Headaches / Migraines: No Hx Seizures: No Hx Kidney Stones: No Hx Psychiatric Treatment: No Hx Asthma: No Hx COPD: No Hx Tuberculosis: No Hx Dementia: No Hx HIV: No - Surgical History Additional Surgical History: Removal of left great toe toenail 06/06/2019 - Social History Smoking Status: Never Smoker Substance Use Type: None - Medications Home Medications: Home Medications Medication Instructions Recorded Confirmed Last Taken Type Furosemide [Lasix TAB] 40 mg PO QDAY #30 tablet 06/13/19 11/20/20 Unknown Rx Isosorb Dinit/Hydralazine [Bidil 1 each PO Q8HR #90 tablet 06/13/19 11/20/20 Unknown Rx 20/37.5MG] Sitagliptin Phosphate [Januvia] 100 mg PO DAILY #30 tablet 06/13/19 11/20/20 Unknown Rx Tamsulosin [Flomax] 0.4 mg PO QDAY #90 cap 06/13/19 11/20/20 Unknown Rx carvediloL [Coreg] 3.125 mg PO BID #60 tablet 06/13/19 11/20/20 Unknown Rx metFORMIN XR [Glucophage XR] 500 mg PO QDDIAB #30 tablet 06/13/19 11/20/20 Unknown Rx Ferrous Sulfate [Feosol 325 MG tab] 325 mg PO QDAY 30 Days #30 tablet 11/22/20 Unknown Rx Sulfamethoxazole/Trimethoprim 1 each PO BID #14 tablet 03/08/21 Unknown Rx [Bactrim DS TAB] cefUROXime [Ceftin] 500 mg PO Q12H #14 tab 09/10/21 Unknown Rx ED Physical Exam - General Limitations: No Limitations General appearance: alert, in no apparent distress - Head Head exam: Present: atraumatic, normocephalic - Eye Eye exam: Present: normal appearance - ENT ENT exam: Present: mucous membranes dry - Neck Neck exam: Present: normal inspection - Respiratory Respiratory exam: Present: normal lung sounds bilaterally. Absent: respiratory distress - Cardiovascular Cardiovascular Exam: Present: regular rate, normal rhythm. Absent: systolic murmur, diastolic murmur, rubs, gallop - GI/Abdominal GI/Abdominal exam: Present: soft. Absent: distended, tenderness - Rectal Rectal exam: Present: deferred - exam: Present: other (Santos in place and draining) - Extremities Exam Extremities exam: Present: normal inspection - Back Exam Back exam: Present: normal inspection - Neurological Exam Neurological exam: Present: alert, oriented X3 - Psychiatric Psychiatric exam: Present: normal affect, normal mood - Skin Skin exam: Present: warm, dry, intact, normal color. Absent: rash ED Course Vital Signs 10/12/21 10:39 Pulse Rate 84 Respiratory 16 Rate Blood Pressure 170/80 [Right] O2 Sat by Pulse 99 Oximetry - Reevaluation(s) Reevaluation #1: 10/12/21 14:15 Patient was noted to be hyperglycemic. His blood sugar was 822. He does not have evidence of DKA but likely has HHS. I gave an additional IV fluid bolus a liter of normal saline. I then discussed care with the hospitalist, Dr. Bond. He did accept patient for admission for his hyperglycemia. He states that he will order the insulin. ED Medical Decision Making - Lab Data Result diagrams: 10/12/21 12:19 10/12/21 12:19 - Medical Decision Making This is a 71-year-old male here with complaint of abdominal pain that has since resolved after replacement of his indwelling Santos. Patient heart rate is around 100 and he endorses nausea and shakiness. Given this plan for basic labs, IV fluids nausea medicine and reassessment differential includes pyelonephritis cystitis. Will reassess after meds and labs have resulted. Critical care attestation.: If time is entered above; I have spent that time in minutes in the direct care of this critically ill patient, excluding procedure time. ED Disposition Clinical Impression: Hyperglycemia, Urinary retention Disposition: ADMITTED INPATIENT Is pt being admited?: Yes Does the pt Need Aspirin: No Condition: Stable Referrals: PRIMARY CARE, [Primary Care Provider] - 3-5 Days
[2021-10-12 11:55] LABS: Color,Urine Colorless (Yellow)
[2021-10-12 11:56] LABS: Bilirubin,Urine Moderate (Negative); Blood,Urine Large (Negative)
[2021-10-12 12:24] LABS: Bacteria,Urine 1+ /HPF (Negative)
[2021-10-12 12:39] LABS: WBC,Urine < 1.0 /HPF (0.0-6.0)
[2021-10-12 12:40] LABS: Basophils % (Auto) 0.4 % (0.0-1.8); Eosinophils % (Auto) 0.1 % (0.0-4.3); Lymphocytes # (Auto) 0.4 K/mm3 (1.2-5.4); Lymphocytes % (Auto) 4.3 % (13.4-35.0); Mean Corpuscular HGB Conc 30 % (32-34); Mean Corpuscular Volume 71 fl (84-94); Monocytes # (Auto) 0.6 K/mm3 (0.0-0.8); Monocytes % (Auto) 6.1 % (0.0-7.3); Platelet Count 179 K/mm3 (140-440); Red Blood Count 4.58 M/mm3 (3.65-5.03)
[2021-10-12 12:42] LABS: Hematocrit 32.4 % (35.5-45.6); Hemoglobin 9.7 gm/dl (11.8-15.2)
[2021-10-12 12:43] LABS: Red Cell Distribution Width 22.9 % (13.2-15.2)
[2021-10-12 13:01] LABS: Alanine Aminotransferase 41 units/L (7-56); Albumin 3.6 g/dL (3.9-5); BUN/Creatinine Ratio 8; Blood Urea Nitrogen 10 mg/dL (9-20); Calcium 8.8 mg/dL (8.4-10.2); Hemolysis Index 4
--- NOTE | 2021-10-12 13:41 | History and Physical Report ---
History of Present Illness Chief complaint: i cant pee History of present illness: 71 YO Male with Vascular Dementia, Cerebral Atherosclerosis, CVA, DM, HTN, renal cell carcinoma S/P nephrectomy, Obstructive Uropathy with chronic indwelling lancaster catheter presents to ED for evaluation. Patient has diminished cognition and insight and provides minimal history. Patient reports "I cannot pee". EMS notified and upon arrival the patient was found to be in distress and subsequently transported to [facility] for further care and evaluation. Patient seen and evaluated in the emergency department. Lab and imaging studies reviewed. Patient found to have a serum glucose of above 800 which is consistent with hyperosmolar hyperglycemic state, volume depletion, metabolic encephalopathy, accelerated hypertension. Patient admitted to telemetry for medical management and continued care due to high risk for worsening symptoms. Patient initiated on high-dose insulin protocol and IV fluid resuscitation therapy. No reports of fever, chills, productive cough, prolonged trave/immobility, individual/family history of DVT/bleeding/blood clotting disorders, skin rash, hemoptysis, recent ill contacts. No prior admission for review. All medication listed at time of admission has been reconciled. Patient has diminished cognition at the time my evaluation but has a positive gag reflex and is able to protect his airway wi thout difficulty. Prior admission on 11/19/2020 reviewed. All medication listed at time of admission has been reconciled. Advanced care planning conducted in ED. Past History Past Medical History: diabetes, hypertension, stroke, other (See HPI) Past Surgical History: Other (Nephrectomy) Social history: single. denies: smoking, alcohol abuse, prescription drug abuse Family history: hypertension Medications and Allergies Allergies Allergy/AdvReac Type Severity Reaction Status Date / Time No Known Allergies Allergy Verified 10/12/21 10:41 Home Medications Medication Instructions Recorded Confirmed Last Taken Type Furosemide [Lasix TAB] 40 mg PO QDAY #30 tablet 06/13/19 11/20/20 Unknown Rx Isosorb Dinit/Hydralazine [Bidil 1 each PO Q8HR #90 tablet 06/13/19 11/20/20 Unknown Rx 20/37.5MG] Sitagliptin Phosphate [Januvia] 100 mg PO DAILY #30 tablet 06/13/19 11/20/20 Unknown Rx Tamsulosin [Flomax] 0.4 mg PO QDAY #90 cap 02/07/20 07/17/21 Unknown Rx carvediloL [Coreg] 3.125 mg PO BID #60 tablet 06/13/19 11/20/20 Unknown Rx metFORMIN XR [Glucophage XR] 500 mg PO QDDIAB #30 tablet 06/13/19 11/20/20 Unknown Rx Ferrous Sulfate [Feosol 325 MG tab] 325 mg PO QDAY 30 Days #30 tablet 11/22/20 Unknown Rx Sulfamethoxazole/Trimethoprim 1 each PO BID #14 tablet 03/08/21 Unknown Rx [Bactrim DS TAB] cefUROXime [Ceftin] 500 mg PO Q12H #14 tab 09/10/21 Unknown Rx Active Meds: Active Medications Sodium Chloride (Nacl 0.9% 1000 Ml) 1,000 mls @ 999 mls/hr IV BOLUS ONE Stop: 10/12/21 14:17 Review of Systems ROS unobtainable: due to mental status Exam - Constitutional Vitals: Temp Pulse Resp BP Pulse Ox 84 16 170/80 99 10/12/21 10:39 10/12/21 10:39 10/12/21 10:39 10/12/21 10:39 General appearance: Present: mild distress - EENT Eyes: Present: PERRL ENT: hearing intact, clear oral mucosa - Neck Neck: Present: supple, normal ROM - Respiratory Respiratory effort: normal Respiratory: bilateral: CTA - Cardiovascular Heart Sounds: Present: S1 & S2. Absent: rub, click - Extremities Extremities: pulses symmetrical, No edema Peripheral Pulses: within normal limits - Abdominal General gastrointestinal: Present: soft, non-tender, non-distended, normal bowel sounds Male genitourinary: Present: normal - Integumentary Integumentary: Present: clear, warm, dry - Musculoskeletal Musculoskeletal: gait normal, strength equal bilaterally - Psychiatric Psychiatric: no memory intact - Neurologic Neurologic: CNII-XII intact, moves all extremities Results - Labs CBC & Chem 7: 10/12/21 12:19 10/12/21 12:19 Labs: Abnormal lab results 10/12/21 10/12/21 10/12/21 Range/Units 12:19 12:19 Unknown Hgb 9.7 L (11.8-15.2) gm/dl Hct 32.4 L (35.5-45.6) % MCV 71 L (84-94) fl MCH 21 L (28-32) pg MCHC 30 L (32-34) % RDW 22.9 H (13.2-15.2) % Lymph % (Auto) 4.3 L (13.4-35.0) % Lymph # (Auto) 0.4 L (1.2-5.4) K/mm3 Seg Neutrophils % 89.1 H (40.0-70.0) % Seg Neutrophils # 8.8 H (1.8-7.7) K/mm3 Sodium 136 L (137-145) mmol/L Glucose 822 H* (75-100) mg/dL AST 65 H (5-40) units/L Alkaline Phosphatase 214 H (35-129) units/L Total Protein 8.6 H (6.3-8.2) g/dL Albumin 3.6 L (3.9-5) g/dL Urine Blood Large A (Negative) Assessment and Plan - Patient Problems (1) Hyperosmolar hyperglycemic state (HHS) Current Visit: Yes Status: Acute Plan to address problem: IV fluid resuscitation therapy, basal insulin therapy, insulin sliding scale t herapy, Accu-Chek, hypoglycemia protocol, monitor urine output every shift, monitor fluid balance. BMP, repeat BMP in a.m. (2) Volume depletion Current Visit: Yes Status: Acute Plan to address problem: IV fluid resuscitation therapy, BMP, repeat BMP in a.m. to monitor serum creatinine as well as GFR. (3) Metabolic encephalopathy Current Visit: Yes Status: Acute Plan to address problem: Neurochecks, IV fluid resuscitation therapy, supportive care. (4) Vascular dementia Current Visit: Yes Status: Acute Qualifiers: Dementia behavioral disturbance: without behavioral disturbance Qualified C ode(s): F01.50 - Vascular dementia without behavioral disturbance Plan to address problem: Verbal prompting, verbal redirection, benzodiazepine therapy as clinically indicated. (5) Cerebral atherosclerosis Current Visit: Yes Status: Acute Plan to address problem: Risk factor reduction therapy, antiplatelet therapy as clinically indicated. (6) DVT prophylaxis Current Visit: Yes Status: Acute Plan to address problem: SCDs bilateral lower extremities while in bed (7) Advance care planning Current Visit: Yes Status: Acute Plan to address problem: Disease education data, care plan discussed, diagnoses discussed, prognosis discussed, patient is full code, +30 minutes. (8) Preventative health care Current Visit: Yes Status: Acute Plan to address problem: Patient and family counseled regarding home safety, balanced diet, outpatient follow-up with primary care physician for all age and risk factor appropriate screening test. +30 minutes.
[2021-10-12 13:57] LABS: Ictotest,Urine Negative (Negative)
[2021-10-12] MEDS ORDERED: HYDROmorphone 0.5 MG/0.5 ML INJ IV PRN (14:12)
[2021-10-12] MEDS ORDERED: ONDANSETRON 4 MG/2 ML INJ IV PRN (14:12)
[2021-10-12] MEDS ORDERED: oxyCODONE /ACETAMINOPHEN 5-325MG TAB PO PRN (14:12)
[2021-10-12] MEDS ORDERED: ALBUTEROL 2.5 MG/3 ML NEBU IH PRN (14:12)
[2021-10-12] MEDS ORDERED: DEXTROSE 50% IN WATER (25GM) 50 ML SYRINGE IV PRN (14:12)
[2021-10-12] MEDS ORDERED: ACETAMINOPHEN 325 MG TAB PO PRN (14:12)
[2021-10-12] MEDS ORDERED: SODIUM CHLORIDE 0.9% 1000 ML 1,000 ML IV SCH ×2 (14:30)
[2021-10-12] MEDS ORDERED: INSULIN LISPRO 100 UNIT/ML SUB-Q ONE (15:00)
[2021-10-12] MEDS: INSULIN REGULAR, HUMAN 100 UNITS/1 ML SUB-Q SCH ×2 (16:06→23:31)
[2021-10-13 02:00] VITALS: BP 167/75
[2021-10-13] MEDS: INSULIN REGULAR, HUMAN 100 UNITS/1 ML SUB-Q SCH ×4 (03:22→17:06)
[2021-10-13 07:28] LABS: BUN/Creatinine Ratio 9; Blood Urea Nitrogen 7 mg/dL (9-20); Calcium 8.3 mg/dL (8.4-10.2); Hemolysis Index 8
[2021-10-13] MEDS: ISOSORB DINIT/HYDRALAZINE 20-37.5MG TAB PO SCH ×2 (08:46→13:26)
[2021-10-13] MEDS ORDERED: FERROUS SULFATE 325 MG TAB PO SCH (10:00)
[2021-10-13] MEDS ORDERED: FUROSEMIDE 40 MG TAB PO SCH (10:00)
[2021-10-13] MEDS ORDERED: POTASSIUM CHLORIDE ER 20 MEQ TAB PO NR (10:00)
[2021-10-13] MEDS ORDERED: carvediloL 3.125 MG TAB PO SCH (10:00)
[2021-10-13] MEDS ORDERED: TAMSULOSIN 0.4 MG CAP PO SCH (10:00)
--- NOTE | 2021-10-13 10:01 | Discharge Summary ---
Providers - Providers Date of Admission: 10/12/21 14:12 Date of discharge: 10/13/21 Attending physician: PRIYANKA TORRES MD Primary care physician: SNEHAL TORRES MD Hospitalization Condition: Stable Hospital course: 71-year-old male with history of CVA, type 2 diabetes, hypertension, renal cell carcinoma status post nephrectomy and obstructive the with chronic indwelling Lancaster catheter who presented to the emergency department for urinary retention. His: Lancaster catheter was exchanged and urine started to follow-up. Patient was found to have significant hyperglycemia. His hyperglycemia improved with IV fluids and urine. Once stable he was discharged home with instruction to follow-up with his outpatient Urologist. Disposition: HOME HEALTH CARE SERVICE Final Discharge Diagnosis (Prints w/discharge instructions): Type 2 diabetes with hyperglycemia. Volume depletion. Acute metabolic encephalopathy. Vascular dementia. Urinary retention. obstructive uropathy Time spent for discharge: 30 minutes Core Measure Documentation - Palliative Care Palliative Care/ Comfort Measures: Not Applicable - Core Measures Any of the following diagnoses?: history only Exam - Physical Exam Narrative exam: GENERAL: Thin elderly male. In no acute distress. HEENT: Normocephalic. Atraumatic. CHEST/LUNGS: CTAB on room air HEART/CARDIOVASCULAR: RRR. No murmur, rubs or gallops appreciated. ABDOMEN: +BS. NT/ND. : lancaster catheter draining sg colored urine NEURO: No focal motor deficit. Follows all commands. MUSCULOSKELETAL: No joint effusion EXTREMITIES: No cyanosis, clubbing or edema. PSYCH: Cooperative. - Constitutional Vitals: Temp Pulse Resp BP Pulse Ox 98.3 F 82 20 167/75 97 10/13/21 00:50 10/13/21 00:50 10/13/21 00:50 10/13/21 00:50 10/13/21 08:52 Plan Care Plan Goals: Please make sure to go to your November 04 Urology appointment. Continue to take all your medications as prescribed. Follow up with: SNEHAL TORRES MD [Primary Care Provider] - 3-5 Days
[2021-10-13] MEDS ORDERED: LOPERAMIDE 2 MG CAP PO PRN (11:33)
[2021-10-13] MEDS ORDERED: INSULIN REGULAR, HUMAN 100 UNITS/1 ML SUB-Q SCH (12:00)
[2021-10-13] MEDS ORDERED: MORPHINE 2 MG/1 ML INJ IV ONE (12:00)
[2021-10-15] MEDS ORDERED: PNEUMOCOCCAL 23 Valent 0.5 ML VIAL IM ONE (12:00)
== END 2021-10-13 17:12 | disposition home health service (06) | DRG 637 ==
LOC: ED 10:36 → 3A 14:12
PROVIDERS: ADMIT Internal Medicine; ATTEND Student in an Organized Health Care Education/Training Program
DX: E11.00 Type 2 diabetes mellitus with hyperosmolarity without nonketotic hyperglycemic-hyperosmolar coma (NKHHC) (principal); G93.41 Metabolic encephalopathy; I10 Essential (primary) hypertension; I67.2 Cerebral atherosclerosis; F01.50 Vascular dementia, unspecified severity, without behavioral disturbance, psychotic disturbance, mood disturbance, and anxiety; E86.9 Volume depletion, unspecified; Z86.73 Personal history of transient ischemic attack (TIA), and cerebral infarction without residual deficits; Z82.49 Family history of ischemic heart disease and other diseases of the circulatory system
CPT/HCPCS: 36415; 80048; 80053; 81001; 82010; 82805; 82962; 85025; 87076; 87086; 87186; 87641; G0378; Q9967; J1815; J2270; J2405; J7030

== ENCOUNTER 2021-11-23 18:26 | Inpatient (IN) | payer MEDICARE, MEDICAID ==
--- NOTE | 2021-11-24 10:54 | Emergency Department Report ---
<MARIO ALBERTO BHAGAT - Last Filed: 11/24/21 15:07> ED General Adult HPI - General Chief complaint: Extremity Problem,Nontraumatic Stated complaint: SWOLLEN LEGS/SORES ON LEGS Time Seen by Provider: 11/24/21 10:47 Source: patient Mode of arrival: Ambulatory Limitations: No Limitations - History of Present Illness Initial comments: 71-year-old with a history of diabetes bilateral leg edema who now presents with worsening leg edema associated with nonbloody watery diarrhea for the last 2 weeks. Patient reported that he has tried different [id number] medication to stop the diarrhea with minimal improvement. Patient also reports that he has tried to change his diet but did not make any difference. No fever or chills reported. Patient also mention some tiredness. Patient denies any pain in the right blister. Blister on the left leg is unbroken. No other modifying or associated factors reported. - Related Data Previous Rx's Medication Instructions Recorded Last Taken Type Furosemide [Lasix TAB] 40 mg PO QDAY #30 tablet 06/13/19 Unknown Rx Isosorb Dinit/Hydralazine [Bidil 1 each PO Q8HR #90 tablet 06/13/19 Unknown Rx 20/37.5MG] Sitagliptin Phosphate [Januvia] 100 mg PO DAILY #30 tablet 06/13/19 Unknown Rx Tamsulosin [Flomax] 0.4 mg PO QDAY #90 cap 06/13/19 Unknown Rx carvediloL [Coreg] 3.125 mg PO BID #60 tablet 06/13/19 Unknown Rx metFORMIN XR [Glucophage XR] 500 mg PO QDDIAB #30 tablet 06/13/19 Unknown Rx Ferrous Sulfate [Feosol 325 MG tab] 325 mg PO QDAY 30 Days #30 tablet 11/22/20 Unknown Rx Allergies Allergy/AdvReac Type Severity Reaction Status Date / Time No Known Allergies Allergy Verified 11/24/21 09:04 ED Review of Systems Comment: All other systems reviewed and negative Gastrointestinal: diarrhea (watery ) Skin: lesions, other (bilateral blister with abrassion ulcer on right lower leg ) ED Past Medical Hx - Past Medical History Hx Hypertension: Yes Hx CVA: No Hx Heart Attack/AMI: No Hx Congestive Heart Failure: No Hx Diabetes: Yes (IDDM) Hx Deep Vein Thrombosis: No Hx Pulmonary Embolism: No Hx GERD: No Hx Liver Disease: No Hx Renal Disease: No Hx Sickle Cell Disease: No Hx Arthritis: Yes (JOINTS) Hx Headaches / Migraines: No Hx Seizures: No Hx Kidney Stones: No Hx Psychiatric Treatment: No Hx Asthma: No Hx COPD: No Hx Tuberculosis: No Hx Dementia: No Hx HIV: No - Surgical History Hx Pacemaker: No Additional Surgical History: Removal of left great toe toenail 06/06/2019 - Social History Smoking Status: Never Smoker - Medications Home Medications: Home Medications Medication Instructions Recorded Confirmed Last Taken Type Furosemide [Lasix TAB] 40 mg PO QDAY #30 tablet 06/13/19 10/13/21 Unknown Rx Isosorb Dinit/Hydralazine [Bidil 1 each PO Q8HR #90 tablet 06/13/19 10/13/21 Unknown Rx 20/37.5MG] Sitagliptin Phosphate [Januvia] 100 mg PO DAILY #30 tablet 06/13/19 10/13/21 Unknown Rx Tamsulosin [Flomax] 0.4 mg PO QDAY #90 cap 06/13/19 10/13/21 Unknown Rx carvediloL [Coreg] 3.125 mg PO BID #60 tablet 06/13/19 10/13/21 Unknown Rx metFORMIN XR [Glucophage XR] 500 mg PO QDDIAB #30 tablet 06/13/19 10/13/21 Unknown Rx Ferrous Sulfate [Feosol 325 MG tab] 325 mg PO QDAY 30 Days #30 tablet 11/22/20 10/13/21 Unknown Rx ED Physical Exam - General Limitations: No Limitations General appearance: alert, in no apparent distress - Head Head exam: Present: normal inspection - Eye Eye exam: Present: normal appearance Pupils: Present: normal accommodation - ENT ENT exam: Present: normal exam, normal orophraynx, mucous membranes moist - Neck Neck exam: Present: normal inspection, full ROM. Absent: tenderness - Respiratory Respiratory exam: Present: normal lung sounds bilaterally. Absent: respiratory distress, accessory muscle use - Cardiovascular Cardiovascular Exam: Present: regular rate, normal rhythm, normal heart sounds - GI/Abdominal GI/Abdominal exam: Present: soft, normal bowel sounds. Absent: distended, tenderness - Extremities Exam Extremities exam: Present: pedal edema (+2 bilateral lower leg with several blister on both legs with open sore on the right ) - Back Exam Back exam: Absent: tenderness - Neurological Exam Neurological exam: Present: alert, oriented X3 - Psychiatric Psychiatric exam: Present: normal affect - Skin Skin exam: Present: warm, rash, vesicles, abrasion ED Medical Decision Making - Lab Data Result diagrams: 11/24/21 11:04 11/24/21 11:04 - Medical Decision Making This pain prolonged watery diarrhea is concerning for c diff-- so will order to rule this out--no recent antibiotics use Bilateral leg edema with blister/vesicle is consistent with venous stasis-- no warmth that ruled out cellulitis -- but with an open sore on diabete will start antibiotics No D-dimer or imaging is indicated since there was no calf pain to suggest DVT Will also order routine CBC and CMP for any infectious process or electrolyte abnormality Labs reviewed to be noted with elevated blood sugar 409 consistent with hyperglycemia-- will given insulin 5 units SQ and IV x 1-- and hydration Also with K+ 2.1 critical hypokalemia -- given potassium 40 mEq PO x 1 and will have the incoming physician repeat labs ED Disposition Clinical Impression: Lower extremity edema, Hypokalemia, Diarrhea, Diabetes mellitus with hyperglycemia Disposition: 09 ADMITTED INPATIENT Does the pt Need Aspirin: No Instructions: Diabetes Mellitus Type 2 in Adults (ED) Referrals: PRIMARY CARE, [Primary Care Provider] - 3-5 Days <GIN PÉREZ - Last Filed: 11/25/21 00:04> ED Review of Systems ROS: Stated complaint: SWOLLEN LEGS/SORES ON LEGS Other details as noted in HPI ED Course Vital Signs 11/23/21 11/24/21 11/24/21 19:33 08:17 08:48 Temperature 98.4 F 97.2 F L Pulse Rate 91 H 82 85 Respiratory 16 18 13 Rate Blood Pressure 161/83 Blood Pressure 159/68 [Left] O2 Sat by Pulse 99 100 100 Oximetry 11/24/21 11/24/21 11/24/21 08:52 09:01 09:15 Temperature Pulse Rate 80 79 Respiratory 14 13 Rate Blood Pressure Blood Pressure [Left] O2 Sat by Pulse 98 100 100 Oximetry 11/24/21 11/24/21 11/24/21 09:31 09:45 10:01 Temperature Pulse Rate 79 80 83 Respiratory 13 12 15 Rate Blood Pressure 189/103 176/87 Blood Pressure [Left] O2 Sat by Pulse 100 100 100 Oximetry 11/24/21 11/24/21 11/24/21 10:15 10:31 10:45 Temperature Pulse Rate 78 87 81 Respiratory 15 11 L 14 Rate Blood Pressure 176/87 176/87 176/87 Blood Pressure [Left] O2 Sat by Pulse 100 100 100 Oximetry 11/24/21 11/24/21 11/24/21 11:01 11:15 11:30 Temperature Pulse Rate 85 89 90 Respiratory 14 18 25 H Rate Blood Pressure 172/96 172/96 172/96 Blood Pressure [Left] O2 Sat by Pulse 100 100 100 Oximetry 11/24/21 11/24/21 11/24/21 11:45 12:01 12:15 Temperature Pulse Rate 101 H 90 81 Respiratory 29 H 20 14 Rate Blood Pressure 172/96 172/96 169/95 Blood Pressure [Left] O2 Sat by Pulse 99 100 Oximetry 11/24/21 11/24/21 11/24/21 12:31 12:45 13:01 Temperature Pulse Rate 81 93 H 85 Respiratory 20 16 12 Rate Blood Pressure 169/95 169/95 169/95 Blood Pressure [Left] O2 Sat by Pulse 99 100 100 Oximetry 11/24/21 11/24/21 11/24/21 13:15 13:31 13:45 Temperature Pulse Rate 78 82 83 Respiratory 10 L 13 9 L Rate Blood Pressure 169/95 169/95 169/95 Blood Pressure [Left] O2 Sat by Pulse 100 100 99 Oximetry 11/24/21 11/24/21 11/24/21 14:01 14:15 14:31 Temperature Pulse Rate 84 81 77 Respiratory 14 19 10 L Rate Blood Pressure 169/95 169/95 169/95 Blood Pressure [Left] O2 Sat by Pulse 100 100 99 Oximetry 11/24/21 11/24/21 11/24/21 14:45 15:01 15:15 Temperature Pulse Rate 83 87 92 H Respiratory 10 L 13 14 Rate Blood Pressure 169/95 169/95 179/96 Blood Pressure [Left] O2 Sat by Pulse 100 100 100 Oximetry 11/24/21 11/24/21 11/24/21 15:31 15:45 16:01 Temperature Pulse Rate 96 H 92 H 93 H Respiratory 14 17 13 Rate Blood Pressure 181/88 181/88 127/73 Blood Pressure [Left] O2 Sat by Pulse 96 99 99 Oximetry 11/24/21 11/24/21 11/24/21 16:15 16:31 16:45 Temperature Pulse Rate 96 H 93 H 90 Respiratory 17 12 17 Rate Blood Pressure 127/73 115/71 115/71 Blood Pressure [Left] O2 Sat by Pulse 100 100 99 Oximetry 11/24/21 11/24/21 11/24/21 17:01 17:15 17:31 Temperature Pulse Rate 98 H 98 H 97 H Respiratory 17 16 15 Rate Blood Pressure 117/62 117/62 109/70 Blood Pressure [Left] O2 Sat by Pulse 99 100 100 Oximetry 11/24/21 11/24/21 11/24/21 17:46 18:01 18:15 Temperature Pulse Rate 95 H 82 Respiratory 14 12 Rate Blood Pressure 109/70 109/70 109/70 Blood Pressure [Left] O2 Sat by Pulse 100 100 100 Oximetry 11/24/21 11/24/21 11/24/21 18:31 18:45 19:01 Temperature Pulse Rate 84 85 84 Respiratory 16 21 16 Rate Blood Pressure 171/83 109/70 166/83 Blood Pressure [Left] O2 Sat by Pulse 99 100 100 Oximetry 11/24/21 11/24/21 11/24/21 19:15 19:31 19:45 Temperature Pulse Rate 89 83 81 Respiratory 24 19 14 Rate Blood Pressure 166/83 171/96 171/96 Blood Pressure [Left] O2 Sat by Pulse 100 100 100 Oximetry 11/24/21 11/24/21 11/24/21 20:01 20:15 20:31 Temperature Pulse Rate 82 85 87 Respiratory 14 13 15 Rate Blood Pressure 161/87 161/87 164/86 Blood Pressure [Left] O2 Sat by Pulse 100 99 100 Oximetry 11/24/21 11/24/21 11/24/21 20:45 21:01 21:15 Temperature Pulse Rate 89 87 94 H Respiratory 14 17 22 Rate Blood Pressure 164/86 166/93 166/93 Blood Pressure [Left] O2 Sat by Pulse 99 100 99 Oximetry 11/24/21 11/24/21 11/24/21 21:31 21:45 22:01 Temperature Pulse Rate 85 89 87 Respiratory 15 20 15 Rate Blood Pressure 177/101 177/101 163/100 Blood Pressure [Left] O2 Sat by Pulse 100 100 100 Oximetry ED Medical Decision Making - Lab Data Result diagrams: 11/24/21 11:04 07/21/22 21:49 - Medical Decision Making After receiving 40 milliequivalents p.o. KCl along with 30 meq of IV KCl serum potassium 2.7. Serum magnesium ordered. Serum glucose normalized after 10 units of subcu insulin. Case discussed with Dr. Watts. who will admit for further management. Critical care attestation.: If time is entered above; I have spent that time in minutes in the direct care of this critically ill patient, excluding procedure time. ED Disposition Is pt being admited?: Yes
[2021-11-24 12:21] LABS: Basophils % (Auto) 0.3 % (0.0-1.8); Eosinophils # (Auto) 0.1 K/mm3 (0.0-0.4); Hematocrit 31.5 % (35.5-45.6); Hemoglobin 9.9 gm/dl (11.8-15.2); Lymphocytes # (Auto) 1.4 K/mm3 (1.2-5.4); Lymphocytes % (Auto) 19.4 % (13.4-35.0); Mean Corpuscular HGB Conc 32 % (32-34); Mean Corpuscular Volume 71 fl (84-94); Monocytes # (Auto) 0.4 K/mm3 (0.0-0.8); Monocytes % (Auto) 5.3 % (0.0-7.3); Platelet Count 226 K/mm3 (140-440); Red Blood Count 4.47 M/mm3 (3.65-5.03)
[2021-11-24 12:25] LABS: Red Cell Distribution Width 20.5 % (13.2-15.2)
[2021-11-24 12:34] LABS: Alanine Aminotransferase 43 units/L (7-56); Albumin 3.1 g/dL (3.9-5); BUN/Creatinine Ratio 9; Blood Urea Nitrogen 8 mg/dL (9-20); Calcium 8.2 mg/dL (8.4-10.2); Hemolysis Index 0
[2021-11-24] MEDS ORDERED: POTASSIUM CHLORIDE ER 20 MEQ TAB PO ONE ×2 (15:06→15:17)
[2021-11-24] MEDS ORDERED: INSULIN REGULAR, HUMAN 100 UNITS/1 ML IV ONE (15:13)
[2021-11-24] MEDS ORDERED: INSULIN REGULAR, HUMAN 100 UNITS/1 ML SUB-Q ONE (15:13)
[2021-11-24] MEDS: POTASSIUM CHLORIDE 10 MEQ 10 MEQ/100 ML BAG IV SCH ×3 (18:20→22:29)
[2021-11-24] MEDS ORDERED: MAGNESIUM OXIDE 400 MG TAB PO STA (23:39)
[2021-11-24] MEDS ORDERED: MAGNESIUM SULFATE 2 GM/50 ML BAG IV ONE (23:39)
[2021-11-25] MEDS ORDERED: ONDANSETRON 4 MG/2 ML INJ IV PRN (00:16)
[2021-11-25] MEDS ORDERED: MORPHINE 4 MG/1 ML INJ IV PRN (00:16)
[2021-11-25] MEDS ORDERED: DEXTROSE 50% IN WATER (25GM) 50 ML SYRINGE IV PRN (00:16)
[2021-11-25] MEDS ORDERED: MAGNESIUM HYDROXIDE (MOM) ORAL LIQD UDC PO PRN (00:16)
[2021-11-25] MEDS ORDERED: ACETAMINOPHEN 325 MG TAB PO PRN (00:16)
--- NOTE | 2021-11-25 00:32 | History and Physical Report ---
History of Present Illness Date of examination: 11/25/21 Date of admission: 11/25/2021 Chief complaint: Diarrhea Lower extremity swelling History of present illness: 71-year-old -[place] male with known history of hypertension and diabetes mellitus presenting in the emergency room today complaining of diarrhea and lower extremity swelling which has been ongoing for the past 2 weeks. Lower extremity swelling and diarrhea has been getting worse. Patient indicates he has used [id number] medication without any significant improvement. He denies any abdominal pain. Denies any nausea or vomiting, no chest pain or shortness of breath, no headache or dizziness and no diaphoresis. Patient denies any fever or chills. Denies any sick contacts and no recent travel. He has an indwelling Lord catheter and indicates was diagnosed with UTI. Patient indicates he was treated for UTI about 3 weeks ago with antibioticsname known. Work-up in the emergency room today, lab reveals hyperglycemia with blood glucose in the 400s, potassium of 2.1 initially. He was given boluses of IV potassium with improvement of potassium level to 2.7. Repeat labs also shows hypomagnesemia of 1.5. Patient is being admitted for the diarrhea, hyperglycemia and electrolyte imbalance. Past History Past Medical History: arthritis, diabetes, hypertension Past Surgical History: Other (Removal of left great toe toenail 06/06/2019 1) Social history: no significant social history Family history: no significant family history Medications and Allergies Allergies Allergy/AdvReac Type Severity Reaction Status Date / Time No Known Allergies Allergy Verified 11/24/21 09:04 Home Medications Medication Instructions Recorded Confirmed Last Taken Type Furosemide [Lasix TAB] 40 mg PO QDAY #30 tablet 06/13/19 10/13/21 Unknown Rx Isosorb Dinit/Hydralazine [Bidil 1 each PO Q8HR #90 tablet 06/13/19 10/13/21 Unknown Rx 20/37.5MG] Sitagliptin Phosphate [Januvia] 100 mg PO DAILY #30 tablet 06/13/19 10/13/21 Unknown Rx Tamsulosin [Flomax] 0.4 mg PO QDAY #90 cap 06/13/19 10/13/21 Unknown Rx carvediloL [Coreg] 3.125 mg PO BID #60 tablet 06/13/19 10/13/21 Unknown Rx metFORMIN XR [Glucophage XR] 500 mg PO QDDIAB #30 tablet 06/13/19 10/13/21 Unknown Rx Ferrous Sulfate [Feosol 325 MG tab] 325 mg PO QDAY 30 Days #30 tablet 11/22/20 10/13/21 Unknown Rx Active Meds: Active Medications Acetaminophen (Acetaminophen 325 Mg Tab) 650 mg PO Q4H PRN PRN Reason: Pain MILD(1-3)/Fever >100.5/LEVINE Dextrose (Dextrose 50% In Water (25gm) 50 Ml Syringe) 50 ml IV Q30MIN PRN; Protocol PRN Reason: Hypoglycemia Heparin Sodium (Porcine) (Heparin 5,000 Unit/1 Ml Vial) 5,000 unit SUB-Q Q8HR ASIM Sodium Chloride (Nacl 0.9% 1000 Ml) 1,000 mls @ 75 mls/hr IV DIRECT ASIM Magnesium Sulfate (Magnesium Sulfate 2gm/50ml) 2 gm in 50 mls @ 25 mls/hr IV ONCE ONE Stop: 11/25/21 02:26 Potassium Chloride (Kcl 10meq/100ml) 10 meq in 100 mls @ 100 mls/hr IV Q1H ASIM Stop: 11/25/21 02:59 Insulin Human Lispro (Insulin Lispro 100 Unit/Ml) 0 unit SUB-Q ACHS ASIM; Protocol Magnesium Hydroxide (Magnesium Hydroxide (Mom) Oral Liqd Udc) 30 ml PO Q4H PRN PRN Reason: Constipation Morphine Sulfate (Morphine 2 Mg/1 Ml Inj) 2 mg IV Q4H PRN PRN Reason: Pain, Moderate (4-6) Morphine Sulfate (Morphine 4 Mg/1 Ml Inj) 4 mg IV Q4H PRN PRN Reason: Pain , Severe (7-10) Ondansetron HCl (Ondansetron 4 Mg/2 Ml Inj) 4 mg IV Q8H PRN PRN Reason: Nausea And Vomiting Sodium Chloride (Sodium Chloride 0.9% 10 Ml Flush Syringe) 10 ml IV BID ASIM Sodium Chloride (Sodium Chloride 0.9% 10 Ml Flush Syringe) 10 ml IV PRN PRN PRN Reason: LINE FLUSH Review of Systems Constitutional: no fever, no chills Ears, nose, mouth and throat: no nasal congestion, no sore throat Cardiovascular: no chest pain, no palpitations Respiratory: no cough, no shortness of breath, no wheezing Gastrointestinal: diarrhea, no abdominal pain, no nausea, no vomiting Genitourinary Male: no dysuria, no hematuria, no flank pain Musculoskeletal: no neck pain, no low back pain Integumentary: no rash, no pruritis Neurological: no headaches, no confusion Psychiatric: no anxiety, no depression Endocrine: no polyphagia, no polydipsia, no polyuria, no nocturia Exam - Constitutional Vitals: Temp Pulse Resp BP Pulse Ox 97.2 F L 87 15 163/100 100 11/24/21 08:17 11/24/21 22:01 11/24/21 22:01 11/24/21 22:01 11/24/21 22:01 General appearance: Present: no acute distress, well-nourished - EENT Eyes: Present: PERRL, EOM intact. Absent: scleral icterus ENT: hearing intact, clear oral mucosa, dentition normal - Neck Neck: Present: supple, normal ROM - Respiratory Respiratory effort: normal Respiratory: bilateral: CTA - Cardiovascular Rhythm: regular Heart Sounds: Present: S1 & S2. Absent: gallop, systolic murmur, diastolic murmur, rub, click - Extremities Extremities: no ischemia, pulses intact, pulses symmetrical, normal temperature, normal color, Full ROM Extremity abnormal: edema (2+ bilateral lower extremity edema. Blister on the anterior aspect of the left leg.), ulceration (Dressing over wound on the right leg just above the ankle.) Peripheral Pulses: within normal limits - Abdominal General gastrointestinal: Present: soft, non-tender, non-distended, normal bowel sounds. Absent: mass Male genitourinary: Present: normal (Lord catheter in place) - Integumentary Integumentary: Present: clear, warm, dry, normal turgor. Absent: jaundice, rash - Musculoskeletal Musculoskeletal: strength equal bilaterally - Psychiatric Psychiatric: appropriate mood/affect, intact judgment & insight, memory intact, cooperative - Neurologic Neurologic: CNII-XII intact, no focal deficits, moves all extremities Results - Labs CBC & Chem 7: 11/24/21 11:04 11/24/21 21:49 Labs: Abnormal lab results 11/24/21 11/24/21 11/24/21 Range/Units 11:04 11:04 21:49 Hgb 9.9 L (11.8-15.2) gm/dl Hct 31.5 L (35.5-45.6) % MCV 71 L (84-94) fl MCH 22 L (28-32) pg RDW 20.5 H (13.2-15.2) % Seg Neutrophils % 74.0 H (40.0-70.0) % Potassium 2.1 L* 2.7 L* D (3.6-5.0) mmol/L Carbon Dioxide 35 H (22-30) mmol/L BUN 8 L (9-20) mg/dL Glucose 409 H (75-100) mg/dL POC Glucose (70-105) mg/dL Calcium 8.2 L (8.4-10.2) mg/dL Magnesium (1.7-2.3) mg/dL Alkaline Phosphatase 224 H (35-129) units/L Albumin 3.1 L (3.9-5) g/dL 11/24/21 11/24/21 Range/Units 23:00 23:26 Hgb (11.8-15.2) gm/dl Hct (35.5-45.6) % MCV (84-94) fl MCH (28-32) pg RDW (13.2-15.2) % Seg Neutrophils % (40.0-70.0) % Potassium (3.6-5.0) mmol/L Carbon Dioxide (22-30) mmol/L BUN (9-20) mg/dL Glucose (75-100) mg/dL POC Glucose 151 H (70-105) mg/dL Calcium (8.4-10.2) mg/dL Magnesium 1.50 L (1.7-2.3) mg/dL Alkaline Phosphatase (35-129) units/L Albumin (3.9-5) g/dL Assessment and Plan Assessment: 1. Diarrhea 2. Hypokalemia 3. Hypomagnesemia 4. Hyperglycemia 5. Lower extremity swelling with blisters 6. Electrolyte imbalance-probably secondary to the diarrhea. Plan: 1. Patient admitted and placed on IV fluid. 2. Stool studies including C. difficile. 3. Potassium and magnesium will be repleted. 4. We will continue to monitor chemistry. 5. Patient placed on sliding scale insulin. We will monitor Accu-Cheks. 6. Consult be placed to wound care team for right leg wound. DVT prophylaxis: Subcutaneous heparin CODE STATUS: Full code
--- NOTE | 2021-11-25 00:43 | XRay Report ---
CHEST 1 VIEW INDICATION / CLINICAL INFORMATION: bilat leg swelling weeping. COMPARISON: None available. FINDINGS: SUPPORT DEVICES: None. HEART / MEDIASTINUM: Heart size is within normal limits. Mediastinal contour demonstrates no signific ant abnormality. LUNGS / PLEURA: No significant pulmonary abnormality. BONES: No significant osseous abnormality. ADDITIONAL FINDINGS: No significant additional findings. IMPRESSION: 1. No active cardiopulmonary disease. Signer Name: Tylor John II, MD Signed: 11/25/2021 12:39 AM Workstation Name: [id number]
[2021-11-25] MEDS: POTASSIUM CHLORIDE 10 MEQ 10 MEQ/100 ML BAG IV SCH ×6 (00:51→06:49)
[2021-11-25] MEDS ORDERED: MAGNESIUM SULFATE 2 GM/50 ML BAG IV ONE (01:27)
[2021-11-25] MEDS: HEPARIN 5,000 UNIT/1 ML VIAL SUB-Q SCH ×3 (05:02→21:56)
[2021-11-25 05:15] LABS: BUN/Creatinine Ratio 10; Blood Urea Nitrogen 8 mg/dL (9-20); Calcium 7.8 mg/dL (8.4-10.2); Hemolysis Index 2
[2021-11-25] MEDS: INSULIN LISPRO 100 UNIT/ML SUB-Q SCH ×4 (09:14→21:57)
[2021-11-25] MEDS: POTASSIUM CHLORIDE ER 20 MEQ TAB PO SCH ×2 (09:14→11:58)
--- NOTE | 2021-11-25 11:06 | Event Note ---
Date: 11/25/21 Patient seen and examined at bedside. He reports noncompliance with some of his heart failure medications. Swelling has improved since admission, but did notice that he had blisters on both legs. Has some pain with palpation. Labs and vital signs were reviewed. Will restart GMDT, potassium supplementation and diuresis. Low suspicion for cellulitis. Echocardiogram ordered.
[2021-11-25] MEDS: TAMSULOSIN 0.4 MG CAP PO SCH (11:59)
[2021-11-25] MEDS: FUROSEMIDE 20 MG/2 ML INJ IV SCH (11:59)
[2021-11-25] MEDS: ISOSORB DINIT/HYDRALAZINE 20-37.5MG TAB PO SCH ×2 (14:57→21:57)
[2021-11-25] MEDS: carvediloL 3.125 MG TAB PO SCH (21:56)
[2021-11-26 05:24] LABS: BUN/Creatinine Ratio 11; Basophils % (Auto) 0.3 % (0.0-1.8); Blood Urea Nitrogen 10 mg/dL (9-20); Eosinophils # (Auto) 0.1 K/mm3 (0.0-0.4); Eosinophils % (Auto) 1.1 % (0.0-4.3); Hematocrit 25.1 % (35.5-45.6); Hemoglobin 7.8 gm/dl (11.8-15.2); Hemolysis Index 3; Lymphocytes # (Auto) 1.8 K/mm3 (1.2-5.4); Lymphocytes % (Auto) 25.7 % (13.4-35.0); Mean Corpuscular HGB Conc 31 % (32-34); Monocytes # (Auto) 0.5 K/mm3 (0.0-0.8); Monocytes % (Auto) 6.7 % (0.0-7.3); Platelet Count 197 K/mm3 (140-440); Red Blood Count 3.61 M/mm3 (3.65-5.03)
[2021-11-26 05:29] LABS: Mean Corpuscular Volume 70 fl (84-94); Red Cell Distribution Width 20.4 % (13.2-15.2)
--- NOTE | 2021-11-26 07:17 | Progress Note ---
Assessment and Plan Assessment and plan: 71-year-old -[place] male with known history of hypertension and diabetes mellitus presenting in the emergency room today complaining of diarrhea and lower extremity swelling which has been ongoing for the past 2 weeks. Lower extremity swelling and diarrhea has been getting worse. Patient indicates he has used [id number] medication without any significant improvement. He denies any abdominal pain. Denies any nausea or vomiting, no chest pain or shortness of breath, no headache or dizziness and no diaphoresis. Patient denies any fever or chills. Denies any sick contacts and no recent travel. He has an indwelling Lord catheter and indicates was diagnosed with UTI. Patient indicates he was treated for UTI about 3 weeks ago with antibioticsname known. Work-up in the emergency room on the day of admission, lab reveals hyperglycemia with blood glucose in the 400s, potassium of 2.1 initially. He was given boluses of IV potassium with improvement of potassium level to 2.7. Repeat labs also shows hypomagnesemia of 1.5. Patient is being admitted for the diarrhea, hyperglycemia and electrolyte imbalance. 1. Diarrhea 2. Hypokalemia 3. Hypomagnesemia 4. Hyperglycemia 5. Lower extremity swelling with blisters 6. Electrolyte imbalance-probably secondary to the diarrhea. Plan: Patient admitted and placed on IV fluid. Blood pressure resolved Stool studies including C. difficile. C. difficile was not done because patient's stool is well formed. Potassium and magnesium will be repleted. Potassium this morning was 3.3 we will continue to replete according to electrolyte replacement protocol. We will continue to monitor chemistry. Patient placed on sliding scale insulin. We will monitor Accu-Cheks. Consult be placed to wound care team for right leg wound. DVT prophylaxis: Subcutaneous heparin CODE STATUS: Full code History Interval history: Patient was seen and evaluated this morning Patient is complaining diarrhea x3 per day I spoke with the nurse and the stool is well formed C. difficile was ordered but was not done because stool is well formed Hospitalist Physical - Physical exam Narrative exam: Not in cardiopulmonary distress. The patient appeared well nourished and normally developed. Vital signs as documented. Head exam is unremarkable. No scleral icterus . Neck is without jugular venous distension, thyromegaly, or carotid bruits. Lungs are clear to auscultation. Cardiac exam reveals regular rate and Rhythm. Abdominal exam reveals normal bowel sounds, nontender, no organomegaly. Extremities are nonedematous and both femoral and pedal pulses are normal. MARKETING AMBASSADOR: Alert and oriented 3. No focal weakness. - Constitutional Vitals: Temp Pulse Resp BP Pulse Ox 98 F 87 16 134/71 99 11/26/21 04:20 11/26/21 04:20 11/26/21 04:20 11/26/21 04:20 11/26/21 04:20 General appearance: Present: no acute distress, well-nourished Results - Labs CBC & Chem 7: 11/26/21 04:51 11/26/21 04:51 Labs: Laboratory Last Values WBC 7.2 K/mm3 (4.5-11.0) 11/26/21 04:51 RBC 3.61 M/mm3 (3.65-5.03) L 11/26/21 04:51 Hgb 7.8 gm/dl (11.8-15.2) L 11/26/21 04:51 Hct 25.1 % (35.5-45.6) L D 11/26/21 04:51 MCV 70 fl (84-94) L 11/26/21 04:51 MCH 22 pg (28-32) L 11/26/21 04:51 MCHC 31 % (32-34) L 11/26/21 04:51 RDW 20.4 % (13.2-15.2) H 11/26/21 04:51 Plt Count 197 K/mm3 (140-440) 11/26/21 04:51 Lymph % (Auto) 25.7 % (13.4-35.0) 11/26/21 04:51 [place] % (Auto) 6.7 % (0.0-7.3) 11/26/21 04:51 Eos % (Auto) 1.1 % (0.0-4.3) 11/26/21 04:51 Baso % (Auto) 0.3 % (0.0-1.8) 11/26/21 04:51 Lymph # (Auto) 1.8 K/mm3 (1.2-5.4) 11/26/21 04:51 [place] # (Auto) 0.5 K/mm3 (0.0-0.8) 11/26/21 04:51 Eos # (Auto) 0.1 K/mm3 (0.0-0.4) 11/26/21 04:51 Baso # (Auto) 0.0 K/mm3 (0.0-0.1) 11/26/21 04:51 Seg Neutrophils % 66.2 % (40.0-70.0) 11/26/21 04:51 Seg Neutrophils # 4.7 K/mm3 (1.8-7.7) 11/26/21 04:51 Sodium 144 mmol/L (137-145) 11/26/21 04:51 Potassium 3.3 mmol/L (3.6-5.0) L 11/26/21 04:51 Chloride 107.7 mmol/L (98-107) H 11/26/21 04:51 Carbon Dioxide 31 mmol/L (22-30) H 11/26/21 04:51 Anion Gap 9 mmol/L 11/26/21 04:51 BUN 10 mg/dL (9-20) 11/26/21 04:51 Creatinine 0.9 mg/dL (0.8-1.3) 11/26/21 04:51 Estimated GFR > 60 ml/min 11/26/21 04:51 BUN/Creatinine Ratio 11 % 11/26/21 04:51 Glucose 134 mg/dL (75-100) H 11/26/21 04:51 POC Glucose 167 mg/dL (70-105) H 11/25/21 20:13 Calcium 8.0 mg/dL (8.4-10.2) L 11/26/21 04:51 Phosphorus 1.70 mg/dL (2.5-4.5) L 11/25/21 04:00 Magnesium 1.80 mg/dL (1.7-2.3) 11/25/21 04:40 Total Bilirubin 0.40 mg/dL (0.1-1.2) 11/24/21 11:04 AST 32 units/L (5-40) 11/24/21 11:04 ALT 43 units/L (7-56) 11/24/21 11:04 Alkaline Phosphatase 224 units/L (35-129) H 11/24/21 11:04 NT-Pro-B Natriuret Pep 1887 pg/mL (0-900) H 11/24/21 23:00 Total Protein 7.4 g/dL (6.3-8.2) 11/24/21 11:04 Albumin 3.1 g/dL (3.9-5) L 11/24/21 11:04 Albumin/Globulin Ratio 0.7 % 11/24/21 11:04 Lord/IV: Voiding Method Indwelling Catheter Active Medications - Current Medications Current Medications: Generic Name Dose Route Start Last Admin Trade Name Freq PRN Reason Stop Dose Admin Acetaminophen 650 mg 11/25/21 00:16 Acetaminophen 325 Mg Tab PO Q4H PRN Pain MILD(1-3)/Fever >100.5/LEVINE Carvedilol 3.125 mg 11/25/21 22:00 11/25/21 21:56 Carvedilol 3.125 Mg Tab PO 3.125 mg BID ASIM Administration Dextrose 0 ml 11/25/21 00:16 Dextrose 50% In Water (25gm) 50 Ml Syringe IV Q30MIN PRN Hypoglycemia Protocol Ferrous Sulfate 325 mg 11/26/21 10:00 Ferrous Sulfate 325 Mg Tab PO QDAY ASIM Furosemide 20 mg 11/25/21 12:00 11/25/21 11:59 Furosemide 20 Mg/2 Ml Inj IV 20 mg QDAY ASIM Administration Furosemide 40 mg 11/26/21 10:00 Furosemide 40 Mg Tab PO QDAY ASIM Heparin Sodium (Porcine) 5,000 unit 11/25/21 06:00 11/25/21 21:56 Heparin 5,000 Unit/1 Ml Vial SUB-Q 5,000 unit Q8HR ASIM Administration Sodium Chloride 1,000 mls @ 75 mls/hr 11/25/21 00:30 Nacl 0.9% 1000 Ml IV DIRECT ASIM Insulin Human Lispro 0 unit 11/25/21 07:30 11/25/21 21:57 Insulin Lispro 100 Unit/Ml SUB-Q 2 unit ACHS ASIM Administration Protocol Isosorbide Dinitrate/Hydralazine 1 each 11/25/21 14:00 11/25/21 21:57 Isosorb Dinit/Hydralazine 20-37.5mg Tab PO 1 each Q8HR ASIM Administration Magnesium Hydroxide 30 ml 11/25/21 00:16 Magnesium Hydroxide (Mom) Oral Liqd Udc PO Q4H PRN Constipation Morphine Sulfate 2 mg 11/25/21 00:16 Morphine 2 Mg/1 Ml Inj IV Q4H PRN Pain, Moderate (4-6) Morphine Sulfate 4 mg 11/25/21 00:16 Morphine 4 Mg/1 Ml Inj IV Q4H PRN Pain , Severe (7-10) Ondansetron HCl 4 mg 11/25/21 00:16 Ondansetron 4 Mg/2 Ml Inj IV Q8H PRN Nausea And Vomiting Potassium Chloride 20 meq 11/26/21 10:00 Potassium Chloride Er 20 Meq Tab PO QDAY ASIM Sodium Chloride 10 ml 11/25/21 10:00 11/25/21 09:14 Sodium Chloride 0.9% 10 Ml Flush Syringe IV 10 ml BID ASIM Administration Sodium Chloride 10 ml 11/25/21 00:16 Sodium Chloride 0.9% 10 Ml Flush Syringe IV PRN PRN LINE FLUSH Tamsulosin HCl 0.4 mg 11/25/21 12:00 11/25/21 11:59 Tamsulosin 0.4 Mg Cap PO 0.4 mg QDAY ASIM Administration Nutrition/Malnutrition Assess - Dietary Evaluation Nutrition/Malnutrition Findings: Nutrition Notes Start: 11/25/21 12:34 Freq: Status: Active Protocol: Document 11/25/21 12:34 JANEE (Rec: 11/25/21 12:44 [email or web address] [id number]) Nutrition Notes Need for Assessment generated from: MD Order,Education Initial or Follow up Assessment Current Diagnosis Diabetes,Hypertension Other Pertinent Diagnosis Diarrhea, LE swelling with blisters, electrolyte imbalance Current Diet Cardiac/Consistent CHO Labs/Tests K 2.6 Phos 1.7 BG 214 Pertinent Medications Feosol, Lasix, 40mEq KCl Height 5 ft 7 in Weight 55 kg [place] Body Weight (kg) 67.27 BMI 19.0 Weight Status Underweight Subjective/Other Information RD consulted for diet education. Pt c/o diarrhea and LE swelling for past two wks. He also reports noncompliance with some of his medications. Stool being checked for presence of C. difficile. Burn Absent Trauma Absent GI Symptoms Diarrhea Skin Integrity/Comment (R) leg blisters Minimum of two criteria No Fluid Accumulation Moderate to Severe (severe) #1 Nutrition Diagnosis Predicted suboptimal energy intake Etiology diarrhea As Evidenced by Signs and Symptoms pt reports worsening diarrhea over past two wks Is patient on ventilator? No Is Patient Ambulatory and/or Out of Bed Yes REE-([facility]-ambulatory/OOB) [ 8660.349 [id number]] Kcal/Kg value to use for calculation 34 Approximate Energy Requirements Using 1870 kcal/Kg Calculation Used for Recommendations Kcal/kg Additional Notes Pro needs 1-1.2g/k-66g/ day Fluid needs 1ml/kcal Nutrition Intervention Change Diet Order: Continue current diet order Goal #1 PO intake to meet at least 75% energy and pro needs Anticipated Discharge Needs: Unable to identify at this time Follow-Up By: 11/29/21 Additional Comments F/U: intakes, need for ONS, diarrhea/C. diff results, UBW assessment
[2021-11-26] MEDS: HEPARIN 5,000 UNIT/1 ML VIAL SUB-Q SCH ×3 (07:43→22:00)
[2021-11-26] MEDS: ISOSORB DINIT/HYDRALAZINE 20-37.5MG TAB PO SCH ×3 (07:46→22:00)
[2021-11-26] MEDS: INSULIN LISPRO 100 UNIT/ML SUB-Q SCH ×4 (07:50→22:00)
[2021-11-26] MEDS ORDERED: POTASSIUM CHLORIDE ER 20 MEQ TAB PO SCH (08:00)
[2021-11-26] MEDS: POTASSIUM CHLORIDE ER 20 MEQ TAB PO SCH (09:03)
[2021-11-26] MEDS: FUROSEMIDE 20 MG/2 ML INJ IV SCH (09:03)
[2021-11-26] MEDS: carvediloL 3.125 MG TAB PO SCH ×2 (09:03→22:00)
[2021-11-26] MEDS: FERROUS SULFATE 325 MG TAB PO SCH (09:03)
[2021-11-26] MEDS: TAMSULOSIN 0.4 MG CAP PO SCH (09:04)
[2021-11-26] MEDS: FUROSEMIDE 40 MG TAB PO SCH (09:04)
[2021-11-27 05:43] LABS: BUN/Creatinine Ratio 13; Blood Urea Nitrogen 13 mg/dL (9-20); Calcium 7.9 mg/dL (8.4-10.2); Hemolysis Index 2
[2021-11-27] MEDS: ISOSORB DINIT/HYDRALAZINE 20-37.5MG TAB PO SCH ×3 (05:45→21:13)
[2021-11-27] MEDS: HEPARIN 5,000 UNIT/1 ML VIAL SUB-Q SCH ×3 (05:45→21:13)
--- NOTE | 2021-11-27 07:59 | Progress Note ---
Assessment and Plan Assessment and plan: 71-year-old -Hung[place] male with known history of hypertension and diabetes mellitus presenting in the emergency room today complaining of diarrhea and lower extremity swelling which has been ongoing for the past 2 weeks. Lower extremity swelling and diarrhea has been getting worse. Patient indicates he has used [id number] medication without any significant improvement. He denies any abdominal pain. Denies any nausea or vomiting, no chest pain or shortness of breath, no headache or dizziness and no diaphoresis. Patient denies any fever or chills. Denies any sick contacts and no recent travel. He has an indwelling Lord catheter and indicates was diagnosed with UTI. Patient indicates he was treated for UTI about 3 weeks ago with antibioticsname known. Work-up in the emergency room on the day of admission, lab reveals hyperglycemia with blood glucose in the 400s, potassium of 2.1 initially. He was given boluses of IV potassium with improvement of potassium level to 2.7. Repeat labs also shows hypomagnesemia of 1.5. Patient is being admitted for the diarrhea, hyperglycemia and electrolyte imbalance. 1. Diarrhea 2. Hypokalemia 3. Hypomagnesemia 4. Hyperglycemia 5. Lower extremity swelling with blisters 6. Electrolyte imbalance-probably secondary to the diarrhea. Plan: Patient admitted and placed on IV fluid. Blood pressure is within normal limit Stool studies including C. difficile. C. difficile was not done because patient's stool is well formed. Patient is placed on loperamide Potassium and magnesium will be repleted. Potassium this morning was 3.6. We will continue to monitor chemistry. Patient placed on sliding scale insulin. We will monitor Accu-Cheks. Consult be placed to wound care team for right leg wound. DVT prophylaxis: Subcutaneous heparin CODE STATUS: Full code History Interval history: Patient was seen and evaluated this morning Patient was complaining of loose stool Per the nurse stool was well formed. Stool was sent for C. difficile but it was well formed and C. difficile test was not done. Hospitalist Physical - Physical exam Narrative exam: Not in cardiopulmonary distress. The patient appeared well nourished and normally developed. Vital signs as documented. Head exam is unremarkable. No scleral icterus . Neck is without jugular venous distension, thyromegaly, or carotid bruits. Lungs are clear to auscultation. Cardiac exam reveals regular rate and Rhythm. Abdominal exam reveals normal bowel sounds, nontender, no organomegaly. Extremities are nonedematous and both femoral and pedal pulses are normal. [employer]: Alert and oriented 3. No focal weakness. - Constitutional Vitals: Temp Pulse Resp BP Pulse Ox 97.5 F L 88 16 129/77 98 11/27/21 07:42 11/27/21 05:45 11/27/21 07:42 11/27/21 07:42 11/27/21 04:30 General appearance: Present: no acute distress, well-nourished Results - Labs CBC & Chem 7: 11/26/21 04:51 11/27/21 04:18 Labs: Laboratory Last Values WBC 7.2 K/mm3 (4.5-11.0) 11/26/21 04:51 RBC 3.61 M/mm3 (3.65-5.03) L 11/26/21 04:51 Hgb 7.8 gm/dl (11.8-15.2) L 11/26/21 04:51 Hct 25.1 % (35.5-45.6) L D 11/26/21 04:51 MCV 70 fl (84-94) L 11/26/21 04:51 MCH 22 pg (28-32) L 11/26/21 04:51 MCHC 31 % (32-34) L 11/26/21 04:51 RDW 20.4 % (13.2-15.2) H 11/26/21 04:51 Plt Count 197 K/mm3 (140-440) 11/26/21 04:51 Lymph % (Auto) 25.7 % (13.4-35.0) 11/26/21 04:51 [place] % (Auto) 6.7 % (0.0-7.3) 11/26/21 04:51 Eos % (Auto) 1.1 % (0.0-4.3) 11/26/21 04:51 Baso % (Auto) 0.3 % (0.0-1.8) 11/26/21 04:51 Lymph # (Auto) 1.8 K/mm3 (1.2-5.4) 11/26/21 04:51 [place] # (Auto) 0.5 K/mm3 (0.0-0.8) 11/26/21 04:51 Eos # (Auto) 0.1 K/mm3 (0.0-0.4) 11/26/21 04:51 Baso # (Auto) 0.0 K/mm3 (0.0-0.1) 11/26/21 04:51 Seg Neutrophils % 66.2 % (40.0-70.0) 11/26/21 04:51 Seg Neutrophils # 4.7 K/mm3 (1.8-7.7) 11/26/21 04:51 Sodium 145 mmol/L (137-145) 11/27/21 04:18 Potassium 3.6 mmol/L (3.6-5.0) 11/27/21 04:18 Chloride 109.5 mmol/L (98-107) H 11/27/21 04:18 Carbon Dioxide 29 mmol/L (22-30) 11/27/21 04:18 Anion Gap 10 mmol/L 11/27/21 04:18 BUN 13 mg/dL (9-20) 11/27/21 04:18 Creatinine 1.0 mg/dL (0.8-1.3) 11/27/21 04:18 Estimated GFR > 60 ml/min 11/27/21 04:18 BUN/Creatinine Ratio 13 % 11/27/21 04:18 Glucose 232 mg/dL (75-100) H 11/27/21 04:18 POC Glucose 145 mg/dL (70-105) H 11/26/21 21:05 Calcium 7.9 mg/dL (8.4-10.2) L 11/27/21 04:18 Phosphorus 1.70 mg/dL (2.5-4.5) L 11/25/21 04:00 Magnesium 1.80 mg/dL (1.7-2.3) 11/25/21 04:40 Total Bilirubin 0.40 mg/dL (0.1-1.2) 11/24/21 11:04 AST 32 units/L (5-40) 11/24/21 11:04 ALT 43 units/L (7-56) 11/24/21 11:04 Alkaline Phosphatase 224 units/L (35-129) H 11/24/21 11:04 NT-Pro-B Natriuret Pep 1887 pg/mL (0-900) H 11/24/21 23:00 Total Protein 7.4 g/dL (6.3-8.2) 11/24/21 11:04 Albumin 3.1 g/dL (3.9-5) L 11/24/21 11:04 Albumin/Globulin Ratio 0.7 % 11/24/21 11:04 C. difficile Tox (PCR) Indeterminate (Negative) 11/24/21 15:22 Lord/IV: Voiding Method Indwelling Catheter Active Medications - Current Medications Current Medications: Generic Name Dose Route Start Last Admin Trade Name Freq PRN Reason Stop Dose Admin Acetaminophen 650 mg 11/25/21 00:16 Acetaminophen 325 Mg Tab PO Q4H PRN Pain MILD(1-3)/Fever >100.5/LEVINE Carvedilol 3.125 mg 11/25/21 22:00 11/26/21 22:00 Carvedilol 3.125 Mg Tab PO 3.125 mg BID ASIM Administration Dextrose 0 ml 11/25/21 00:16 Dextrose 50% In Water (25gm) 50 Ml Syringe IV Q30MIN PRN Hypoglycemia Protocol Ferrous Sulfate 325 mg 11/26/21 10:00 11/26/21 09:03 Ferrous Sulfate 325 Mg Tab PO 325 mg QDAY ASIM Administration Furosemide 40 mg 11/26/21 10:00 11/26/21 09:04 Furosemide 40 Mg Tab PO 40 mg QDAY ASIM Administration Heparin Sodium (Porcine) 5,000 unit 11/25/21 06:00 11/27/21 05:45 Heparin 5,000 Unit/1 Ml Vial SUB-Q 5,000 unit Q8HR ASIM Administration Sodium Chloride 1,000 mls @ 75 mls/hr 11/25/21 00:30 Nacl 0.9% 1000 Ml IV DIRECT ASIM Insulin Human Lispro 0 unit 11/25/21 07:30 11/26/21 22:00 Insulin Lispro 100 Unit/Ml SUB-Q Not Given ACHS ASIM Protocol Isosorbide Dinitrate/Hydralazine 1 each 11/25/21 14:00 11/27/21 05:45 Isosorb Dinit/Hydralazine 20-37.5mg Tab PO 1 each Q8HR ASIM Administration Magnesium Hydroxide 30 ml 11/25/21 00:16 Magnesium Hydroxide (Mom) Oral Liqd Udc PO Q4H PRN Constipation Morphine Sulfate 2 mg 11/25/21 00:16 Morphine 2 Mg/1 Ml Inj IV Q4H PRN Pain, Moderate (4-6) Morphine Sulfate 4 mg 11/25/21 00:16 Morphine 4 Mg/1 Ml Inj IV Q4H PRN Pain , Severe (7-10) Ondansetron HCl 4 mg 11/25/21 00:16 Ondansetron 4 Mg/2 Ml Inj IV Q8H PRN Nausea And Vomiting Potassium Chloride 20 meq 11/26/21 10:00 11/26/21 09:03 Potassium Chloride Er 20 Meq Tab PO 20 meq QDAY ASIM Administration Sodium Chloride 10 ml 11/25/21 10:00 11/26/21 22:00 Sodium Chloride 0.9% 10 Ml Flush Syringe IV 10 ml BID ASIM Administration Sodium Chloride 10 ml 11/25/21 00:16 Sodium Chloride 0.9% 10 Ml Flush Syringe IV PRN PRN LINE FLUSH Tamsulosin HCl 0.4 mg 11/25/21 12:00 11/26/21 09:04 Tamsulosin 0.4 Mg Cap PO 0.4 mg QDAY ASIM Administration Nutrition/Malnutrition Assess - Dietary Evaluation Nutrition/Malnutrition Findings: Nutrition Notes Start: 11/25/21 12:34 Freq: Status: Active Protocol: Document 11/25/21 12:34 JANEE (Rec: 11/25/21 12:44 JANEE [id number]) Nutrition Notes Need for Assessment generated from: MD Order,Education Initial or Follow up Assessment Current Diagnosis Diabetes,Hypertension Other Pertinent Diagnosis Diarrhea, LE swelling with blisters, electrolyte imbalance Current Diet Cardiac/Consistent CHO Labs/Tests K 2.6 Phos 1.7 BG 214 Pertinent Medications Feosol, Lasix, 40mEq KCl Height 5 ft 7 in Weight 55 kg [place] Body Weight (kg) 67.27 BMI 19.0 Weight Status Underweight Subjective/Other Information RD consulted for diet education. Pt c/o diarrhea and LE swelling for past two wks. He also reports noncompliance with some of his medications. Stool being checked for presence of C. difficile. Burn Absent Trauma Absent GI Symptoms Diarrhea Skin Integrity/Comment (R) leg blisters Minimum of two criteria No Fluid Accumulation Moderate to Severe (severe) #1 Nutrition Diagnosis Predicted suboptimal energy intake Etiology diarrhea As Evidenced by Signs and Symptoms pt reports worsening diarrhea over past two wks Is patient on ventilator? No Is Patient Ambulatory and/or Out of Bed Yes REE-([place]or-ambulatory/OOB) [ 1642.719 NUTR.[id number]] Kcal/Kg value to use for calculation 34 Approximate Energy Requirements Using 1870 kcal/Kg Calculation Used for Recommendations Kcal/kg Additional Notes Pro needs 1-1.2g/k-66g/ day Fluid needs 1ml/kcal Nutrition Intervention Change Diet Order: Continue current diet order Goal #1 PO intake to meet at least 75% energy and pro needs Anticipated Discharge Needs: Unable to identify at this time Follow-Up By: 11/29/21 Additional Comments F/U: intakes, need for ONS, diarrhea/C. diff results, UBW assessment
[2021-11-27] MEDS: INSULIN LISPRO 100 UNIT/ML SUB-Q SCH ×4 (08:50→21:14)
[2021-11-27] MEDS: LOPERAMIDE 2 MG CAP PO PRN ×3 (09:21→21:12)
[2021-11-27] MEDS: FUROSEMIDE 40 MG TAB PO SCH (09:21)
[2021-11-27] MEDS: carvediloL 3.125 MG TAB PO SCH ×2 (09:21→21:12)
[2021-11-27] MEDS: TAMSULOSIN 0.4 MG CAP PO SCH (09:21)
[2021-11-27] MEDS: POTASSIUM CHLORIDE ER 20 MEQ TAB PO SCH (09:22)
[2021-11-27] MEDS: FERROUS SULFATE 325 MG TAB PO SCH (09:22)
[2021-11-28] MEDS: ISOSORB DINIT/HYDRALAZINE 20-37.5MG TAB PO SCH ×3 (05:50→22:17)
[2021-11-28] MEDS: HEPARIN 5,000 UNIT/1 ML VIAL SUB-Q SCH ×3 (05:50→22:17)
[2021-11-28 06:17] LABS: BUN/Creatinine Ratio 14; Blood Urea Nitrogen 14 mg/dL (9-20); Hemolysis Index 1
[2021-11-28] MEDS: MORPHINE 2 MG/1 ML INJ IV PRN (09:15)
[2021-11-28] MEDS: FERROUS SULFATE 325 MG TAB PO SCH (09:16)
[2021-11-28] MEDS: INSULIN LISPRO 100 UNIT/ML SUB-Q SCH ×4 (09:16→22:18)
[2021-11-28] MEDS: carvediloL 3.125 MG TAB PO SCH ×2 (09:16→22:17)
[2021-11-28] MEDS: TAMSULOSIN 0.4 MG CAP PO SCH (09:16)
[2021-11-28] MEDS: POTASSIUM CHLORIDE ER 20 MEQ TAB PO SCH (09:16)
[2021-11-28] MEDS: FUROSEMIDE 40 MG TAB PO SCH (09:16)
[2021-11-28] MEDS: LOPERAMIDE 2 MG CAP PO PRN ×2 (09:16→22:17)
[2021-11-28] MEDS ORDERED: CALCIUM GLUCONATE 1,000 MG in SODIUM CHLORIDE 0.9% 100 ML IV ONE (14:02)
--- NOTE | 2021-11-28 14:03 | Progress Note ---
Assessment and Plan Assessment and plan: 71-year-old -Burm[place] male with known history of hypertension and diabetes mellitus presenting in the emergency room today complaining of diarrhea and lower extremity swelling which has been ongoing for the past 2 weeks. Lower extremity swelling and diarrhea has been getting worse. Patient indicates he has used [id number]-[id number] medication without any significant improvement. He denies any abdominal pain. Denies any nausea or vomiting, no chest pain or shortness of breath, no headache or dizziness and no diaphoresis. Patient denies any fever or chills. Denies any sick contacts and no recent travel. He has an indwelling Lord catheter and indicates was diagnosed with UTI. Patient indicates he was treated for UTI about 3 weeks ago with antibioticsname known. Work-up in the emergency room on the day of admission, lab reveals hyperglycemia with blood glucose in the 400s, potassium of 2.1 initially. He was given boluses of IV potassium with improvement of potassium level to 2.7. Repeat labs also shows hypomagnesemia of 1.5. Patient is being admitted for the diarrhea, hyperglycemia and electrolyte imbalance. #Diarrhearesolved #Hypokalemiaresolved #Hypomagnesemiaresolved #Hyperglycemia #Lower extremity swelling with blisterspending wound care evaluation #Electrolyte imbalance-probably secondary to the diarrhea. #Mild protein caloric malnutritionalbumin 3.1. Continue dietary supplementation. #Advanced care planning -Disease education conducted, care plan discussed, diagnoses discussed, prognosis discussed, and patient acknowledges understanding with care plan -Time: +30 min #Discharge planning - Patient is pending wound care evaluation - Case management has been made aware. - Discharge is tentatively tomorrow. Disposition Plan: Pending possible discharge home tomorrow Total Time Spent with Patient (Minutes): 30 minutes History Interval history: No acute events overnight. Hospitalist Physical - Constitutional Vitals: Temp Pulse Resp BP Pulse Ox 100.1 F H 115 H 18 153/79 100 11/28/21 12:03 11/28/21 12:03 11/28/21 12:03 11/28/21 12:03 11/28/21 12:03 General appearance: Present: no acute distress, cachectic - EENT Eyes: Present: PERRL, EOM intact ENT: hearing intact, clear oral mucosa - Neck Neck: Present: supple, normal ROM - Respiratory Respiratory effort: normal Respiratory: bilateral: CTA - Cardiovascular Rhythm: regular Heart Sounds: Present: S1 & S2 - Extremities Extremities: no ischemia, pulses intact, pulses symmetrical, No edema, normal temperature, normal color Peripheral Pulses: within normal limits - Abdominal General gastrointestinal: soft, non-tender, non-distended, normal bowel sounds - Integumentary Integumentary: Present: clear, warm, dry - Psychiatric Psychiatric: appropriate mood/affect, cooperative - Neurologic Neurologic: CNII-XII intact - Allied Health Allied health notes reviewed: nursing Results - Labs CBC & Chem 7: 11/26/21 04:51 11/28/21 05:42 Labs: Laboratory Last Values WBC 7.2 K/mm3 (4.5-11.0) 11/26/21 04:51 RBC 3.61 M/mm3 (3.65-5.03) L 11/26/21 04:51 Hgb 7.8 gm/dl (11.8-15.2) L 11/26/21 04:51 Hct 25.1 % (35.5-45.6) L D 11/26/21 04:51 MCV 70 fl (84-94) L 11/26/21 04:51 MCH 22 pg (28-32) L 11/26/21 04:51 MCHC 31 % (32-34) L 11/26/21 04:51 RDW 20.4 % (13.2-15.2) H 11/26/21 04:51 Plt Count 197 K/mm3 (140-440) 11/26/21 04:51 Lymph % (Auto) 25.7 % (13.4-35.0) 11/26/21 04:51 [place] % (Auto) 6.7 % (0.0-7.3) 11/26/21 04:51 Eos % (Auto) 1.1 % (0.0-4.3) 11/26/21 04:51 Baso % (Auto) 0.3 % (0.0-1.8) 11/26/21 04:51 Lymph # (Auto) 1.8 K/mm3 (1.2-5.4) 11/26/21 04:51 [place] # (Auto) 0.5 K/mm3 (0.0-0.8) 11/26/21 04:51 Eos # (Auto) 0.1 K/mm3 (0.0-0.4) 11/26/21 04:51 Baso # (Auto) 0.0 K/mm3 (0.0-0.1) 11/26/21 04:51 Seg Neutrophils % 66.2 % (40.0-70.0) 11/26/21 04:51 Seg Neutrophils # 4.7 K/mm3 (1.8-7.7) 11/26/21 04:51 Sodium 144 mmol/L (137-145) 11/28/21 05:42 Potassium 3.7 mmol/L (3.6-5.0) 11/28/21 05:42 Chloride 109.8 mmol/L (98-107) H 11/28/21 05:42 Carbon Dioxide 26 mmol/L (22-30) 11/28/21 05:42 Anion Gap 12 mmol/L 11/28/21 05:42 BUN 14 mg/dL (9-20) 11/28/21 05:42 Creatinine 1.0 mg/dL (0.8-1.3) 11/28/21 05:42 Estimated GFR > 60 ml/min 11/28/21 05:42 BUN/Creatinine Ratio 14 % 11/28/21 05:42 Glucose 304 mg/dL (75-100) H 11/28/21 05:42 POC Glucose 175 mg/dL (70-105) H 11/28/21 11:54 Calcium 8.0 mg/dL (8.4-10.2) L 11/28/21 05:42 Phosphorus 1.70 mg/dL (2.5-4.5) L 11/25/21 04:00 Magnesium 1.80 mg/dL (1.7-2.3) 11/25/21 04:40 Total Bilirubin 0.40 mg/dL (0.1-1.2) 11/24/21 11:04 AST 32 units/L (5-40) 11/24/21 11:04 ALT 43 units/L (7-56) 11/24/21 11:04 Alkaline Phosphatase 224 units/L (35-129) H 11/24/21 11:04 NT-Pro-B Natriuret Pep 1887 pg/mL (0-900) H 11/24/21 23:00 Total Protein 7.4 g/dL (6.3-8.2) 11/24/21 11:04 Albumin 3.1 g/dL (3.9-5) L 11/24/21 11:04 Albumin/Globulin Ratio 0.7 % 11/24/21 11:04 C. difficile Tox (PCR) Indeterminate (Negative) 11/24/21 15:22 Microbiology: Microbiology 11/25/21 00:41 Stool Stool Culture - Preliminary Lord/IV: Voiding Method Indwelling Catheter Active Medications - Current Medications Current Medications: Generic Name Dose Route Start Last Admin Trade Name Freq PRN Reason Stop Dose Admin Acetaminophen 650 mg 11/25/21 00:16 11/28/21 12:37 Acetaminophen 325 Mg Tab PO 650 mg Q4H PRN Administration Pain MILD(1-3)/Fever >100.5/LEVINE Carvedilol 3.125 mg 11/25/21 22:00 11/28/21 09:16 Carvedilol 3.125 Mg Tab PO 3.125 mg BID ASIM Administration Dextrose 0 ml 11/25/21 00:16 Dextrose 50% In Water (25gm) 50 Ml Syringe IV Q30MIN PRN Hypoglycemia Protocol Ferrous Sulfate 325 mg 11/26/21 10:00 11/28/21 09:16 Ferrous Sulfate 325 Mg Tab PO 325 mg QDAY ASIM Administration Furosemide 40 mg 11/26/21 10:00 11/28/21 09:16 Furosemide 40 Mg Tab PO 40 mg QDAY ASIM Administration Heparin Sodium (Porcine) 5,000 unit 11/25/21 06:00 11/28/21 05:50 Heparin 5,000 Unit/1 Ml Vial SUB-Q 5,000 unit Q8HR ASIM Administration Sodium Chloride 1,000 mls @ 75 mls/hr 11/25/21 00:30 Nacl 0.9% 1000 Ml IV DIRECT ASIM Insulin Human Lispro 0 unit 11/25/21 07:30 11/28/21 12:36 Insulin Lispro 100 Unit/Ml SUB-Q 2 unit ACHS ASIM Administration Protocol Isosorbide Dinitrate/Hydralazine 1 each 11/25/21 14:00 11/28/21 05:50 Isosorb Dinit/Hydralazine 20-37.5mg Tab PO 1 each Q8HR ASIM Administration Loperamide HCl 2 mg 11/27/21 08:00 11/28/21 09:16 Loperamide 2 Mg Cap PO 2 mg Q2H PRN Administration Diarrhea Magnesium Hydroxide 30 ml 11/25/21 00:16 Magnesium Hydroxide (Mom) Oral Liqd Udc PO Q4H PRN Constipation Morphine Sulfate 2 mg 11/25/21 00:16 11/28/21 09:15 Morphine 2 Mg/1 Ml Inj IV 2 mg Q4H PRN Administration Pain, Moderate (4-6) Morphine Sulfate 4 mg 11/25/21 00:16 Morphine 4 Mg/1 Ml Inj IV Q4H PRN Pain , Severe (7-10) Ondansetron HCl 4 mg 11/25/21 00:16 Ondansetron 4 Mg/2 Ml Inj IV Q8H PRN Nausea And Vomiting Potassium Chloride 20 meq 11/26/21 10:00 11/28/21 09:16 Potassium Chloride Er 20 Meq Tab PO 20 meq QDAY ASIM Administration Sodium Chloride 10 ml 11/25/21 10:00 11/28/21 09:16 Sodium Chloride 0.9% 10 Ml Flush Syringe IV 10 ml BID ASIM Administration Sodium Chloride 10 ml 11/25/21 00:16 Sodium Chloride 0.9% 10 Ml Flush Syringe IV PRN PRN LINE FLUSH Tamsulosin HCl 0.4 mg 11/25/21 12:00 11/28/21 09:16 Tamsulosin 0.4 Mg Cap PO 0.4 mg QDAY ASIM Administration Nutrition/Malnutrition Assess - Dietary Evaluation Nutrition/Malnutrition Findings: Nutrition Notes Start: 11/25/21 12:34 Freq: Status: Active Protocol: Document 11/25/21 12:34 [facility] (Rec: 11/25/21 12:44 [facility] [id number]) Nutrition Notes Need for Assessment generated from: MD Order,Education Initial or Follow up Assessment Current Diagnosis Diabetes,Hypertension Other Pertinent Diagnosis Diarrhea, LE swelling with blisters, electrolyte imbalance Current Diet Cardiac/Consistent CHO Labs/Tests K 2.6 Phos 1.7 BG 214 Pertinent Medications Feosol, Lasix, 40mEq KCl Height 5 ft 7 in Weight 55 kg [place] Body Weight (kg) 67.27 BMI 19.0 Weight Status Underweight Subjective/Other Information RD consulted for diet education. Pt c/o diarrhea and LE swelling for past two wks. He also reports noncompliance with some of his medications. Stool being checked for presence of C. difficile. Burn Absent Trauma Absent GI Symptoms Diarrhea Skin Integrity/Comment (R) leg blisters Minimum of two criteria No Fluid Accumulation Moderate to Severe (severe) #1 Nutrition Diagnosis Predicted suboptimal energy intake Etiology diarrhea As Evidenced by Signs and Symptoms pt reports worsening diarrhea over past two wks Is patient on ventilator? No Is Patient Ambulatory and/or Out of Bed Yes REE-([facility]-ambulatory/OOB) [ 1642.719 NUTR.MSJOOB] Kcal/Kg value to use for calculation 34 Approximate Energy Requirements Using 1870 kcal/Kg Calculation Used for Recommendations Kcal/kg Additional Notes Pro needs 1-1.2g/k-66g/ day Fluid needs 1ml/kcal Nutrition Intervention Change Diet Order: Continue current diet order Goal #1 PO intake to meet at least 75% energy and pro needs Anticipated Discharge Needs: Unable to identify at this time Follow-Up By: 11/29/21 Additional Comments F/U: intakes, need for ONS, diarrhea/C. diff results, UBW assessment
[2021-11-28] MEDS: SODIUM CHLORIDE 0.9% 1000 ML 1,000 ML IV SCH (22:18)
[2021-11-29] MEDS: LOPERAMIDE 2 MG CAP PO PRN ×3 (03:34→21:56)
[2021-11-29] MEDS: HEPARIN 5,000 UNIT/1 ML VIAL SUB-Q SCH ×3 (05:54→21:55)
[2021-11-29] MEDS: ISOSORB DINIT/HYDRALAZINE 20-37.5MG TAB PO SCH ×3 (05:54→21:54)
[2021-11-29] MEDS: MORPHINE 2 MG/1 ML INJ IV PRN (09:51)
[2021-11-29] MEDS: carvediloL 3.125 MG TAB PO SCH ×2 (09:52→21:54)
[2021-11-29] MEDS: POTASSIUM CHLORIDE ER 20 MEQ TAB PO SCH (09:52)
[2021-11-29] MEDS: TAMSULOSIN 0.4 MG CAP PO SCH (09:52)
[2021-11-29] MEDS: FUROSEMIDE 40 MG TAB PO SCH (09:52)
[2021-11-29] MEDS: FERROUS SULFATE 325 MG TAB PO SCH (09:52)
[2021-11-29] MEDS: INSULIN LISPRO 100 UNIT/ML SUB-Q SCH ×4 (09:53→21:54)
--- NOTE | 2021-11-29 13:45 | Progress Note ---
Assessment and Plan Assessment and plan: 71-year-old -[place] male with known history of hypertension and diabetes mellitus presenting in the emergency room today complaining of diarrhea and lower extremity swelling which has been ongoing for the past 2 weeks. Lower extremity swelling and diarrhea has been getting worse. Patient indicates he has used [id number] medication without any significant improvement. He denies any abdominal pain. Denies any nausea or vomiting, no chest pain or shortness of breath, no headache or dizziness and no diaphoresis. Patient denies any fever or chills. Denies any sick contacts and no recent travel. He has an indwelling Lord catheter and indicates was diagnosed with UTI. Patient indicates he was treated for UTI about 3 weeks ago with antibioticsname known. Work-up in the emergency room on the day of admission, lab reveals hyperglycemia with blood glucose in the 400s, potassium of 2.1 initially. He was given boluses of IV potassium with improvement of potassium level to 2.7. Repeat labs also shows hypomagnesemia of 1.5. Patient is being admitted for the diarrhea, hyperglycemia and electrolyte imbalance. #Diarrhea- pending C-difficile PCR, ova and parasite PCR, and stool culture. #Hypokalemiaresolved #Hypomagnesemiaresolved #Hyperglycemia #Lower extremity swelling with blisterspending wound care evaluation #Electrolyte imbalance-probably secondary to the diarrhea. #Mild protein caloric malnutritionalbumin 3.1. Continue dietary supplementation. #Advanced care planning -Disease education conducted, care plan discussed, diagnoses discussed, prognosis discussed, and patient acknowledges understanding with care plan -Time: +30 min Disposition Plan: Continue medical management Total Time Spent with Patient (Minutes): 45 min History Interval history: No acute events overnight. Hospitalist Physical - Constitutional Vitals: Temp Pulse Resp BP Pulse Ox 98.3 F 89 20 119/69 100 11/29/21 11:28 11/29/21 11:28 11/29/21 04:01 11/29/21 11:28 11/29/21 11:28 General appearance: Present: no acute distress, cachectic - EENT Eyes: Present: PERRL, EOM intact ENT: hearing intact, clear oral mucosa, dentition normal - Neck Neck: Present: supple, normal ROM - Respiratory Respiratory effort: normal Respiratory: bilateral: CTA - Cardiovascular Rhythm: regular Heart Sounds: Present: S1 & S2 - Extremities Extremities: no ischemia, pulses intact, pulses symmetrical, No edema, normal temperature, normal color Peripheral Pulses: within normal limits - Abdominal General gastrointestinal: soft, non-tender, non-distended, normal bowel sounds - Integumentary Integumentary: Present: clear, warm, dry - Psychiatric Psychiatric: appropriate mood/affect, intact judgment & insight, memory intact, cooperative - Neurologic Neurologic: CNII-XII intact, moves all extremities - Allied Health Allied health notes reviewed: nursing Results - Labs CBC & Chem 7: 11/26/21 04:51 11/28/21 05:42 Labs: Laboratory Last Values WBC 7.2 K/mm3 (4.5-11.0) 11/26/21 04:51 RBC 3.61 M/mm3 (3.65-5.03) L 11/26/21 04:51 Hgb 7.8 gm/dl (11.8-15.2) L 11/26/21 04:51 Hct 25.1 % (35.5-45.6) L D 11/26/21 04:51 MCV 70 fl (84-94) L 11/26/21 04:51 MCH 22 pg (28-32) L 11/26/21 04:51 MCHC 31 % (32-34) L 11/26/21 04:51 RDW 20.4 % (13.2-15.2) H 11/26/21 04:51 Plt Count 197 K/mm3 (140-440) 11/26/21 04:51 Lymph % (Auto) 25.7 % (13.4-35.0) 11/26/21 04:51 [place] % (Auto) 6.7 % (0.0-7.3) 11/26/21 04:51 Eos % (Auto) 1.1 % (0.0-4.3) 11/26/21 04:51 Baso % (Auto) 0.3 % (0.0-1.8) 11/26/21 04:51 Lymph # (Auto) 1.8 K/mm3 (1.2-5.4) 11/26/21 04:51 [place] # (Auto) 0.5 K/mm3 (0.0-0.8) 11/26/21 04:51 Eos # (Auto) 0.1 K/mm3 (0.0-0.4) 11/26/21 04:51 Baso # (Auto) 0.0 K/mm3 (0.0-0.1) 11/26/21 04:51 Seg Neutrophils % 66.2 % (40.0-70.0) 11/26/21 04:51 Seg Neutrophils # 4.7 K/mm3 (1.8-7.7) 11/26/21 04:51 Sodium 144 mmol/L (137-145) 11/28/21 05:42 Potassium 3.7 mmol/L (3.6-5.0) 11/28/21 05:42 Chloride 109.8 mmol/L (98-107) H 11/28/21 05:42 Carbon Dioxide 26 mmol/L (22-30) 11/28/21 05:42 Anion Gap 12 mmol/L 11/28/21 05:42 BUN 14 mg/dL (9-20) 11/28/21 05:42 Creatinine 1.0 mg/dL (0.8-1.3) 11/28/21 05:42 Estimated GFR > 60 ml/min 11/28/21 05:42 BUN/Creatinine Ratio 14 % 11/28/21 05:42 Glucose 304 mg/dL (75-100) H 11/28/21 05:42 POC Glucose 286 mg/dL (70-105) H 11/29/21 11:28 Calcium 8.0 mg/dL (8.4-10.2) L 11/28/21 05:42 Phosphorus 1.70 mg/dL (2.5-4.5) L 11/25/21 04:00 Magnesium 1.80 mg/dL (1.7-2.3) 11/25/21 04:40 Total Bilirubin 0.40 mg/dL (0.1-1.2) 11/24/21 11:04 AST 32 units/L (5-40) 11/24/21 11:04 ALT 43 units/L (7-56) 11/24/21 11:04 Alkaline Phosphatase 224 units/L (35-129) H 11/24/21 11:04 NT-Pro-B Natriuret Pep 1887 pg/mL (0-900) H 11/24/21 23:00 Total Protein 7.4 g/dL (6.3-8.2) 11/24/21 11:04 Albumin 3.1 g/dL (3.9-5) L 11/24/21 11:04 Albumin/Globulin Ratio 0.7 % 11/24/21 11:04 C. difficile Tox (PCR) Indeterminate (Negative) 11/24/21 15:22 Microbiology: Microbiology 11/25/21 00:41 Stool Stool Culture - Preliminary Lord/IV: Voiding Method Indwelling Catheter Active Medications - Current Medications Current Medications: Generic Name Dose Route Start Last Admin Trade Name Freq PRN Reason Stop Dose Admin Acetaminophen 650 mg 11/25/21 00:16 11/28/21 12:37 Acetaminophen 325 Mg Tab PO 650 mg Q4H PRN Administration Pain MILD(1-3)/Fever >100.5/LEVINE Carvedilol 3.125 mg 11/25/21 22:00 11/29/21 09:52 Carvedilol 3.125 Mg Tab PO 3.125 mg BID ASIM Administration Dextrose 0 ml 11/25/21 00:16 Dextrose 50% In Water (25gm) 50 Ml Syringe IV Q30MIN PRN Hypoglycemia Protocol Ferrous Sulfate 325 mg 11/26/21 10:00 11/29/21 09:52 Ferrous Sulfate 325 Mg Tab PO 325 mg QDAY ASIM Administration Furosemide 40 mg 11/26/21 10:00 11/29/21 09:52 Furosemide 40 Mg Tab PO 40 mg QDAY ASIM Administration Heparin Sodium (Porcine) 5,000 unit 11/25/21 06:00 11/29/21 12:59 Heparin 5,000 Unit/1 Ml Vial SUB-Q 5,000 unit Q8HR ASIM Administration Sodium Chloride 1,000 mls @ 75 mls/hr 11/25/21 00:30 11/28/21 22:18 Nacl 0.9% 1000 Ml IV 75 mls/hr DIRECT ASIM Administration Insulin Human Lispro 0 unit 11/25/21 07:30 11/29/21 12:50 Insulin Lispro 100 Unit/Ml SUB-Q 4 unit ACHS ASIM Administration Protocol Isosorbide Dinitrate/Hydralazine 1 each 11/25/21 14:00 11/29/21 13:01 Isosorb Dinit/Hydralazine 20-37.5mg Tab PO 1 each Q8HR ASIM Administration Loperamide HCl 2 mg 11/27/21 08:00 11/29/21 05:55 Loperamide 2 Mg Cap PO 2 mg Q2H PRN Administration Diarrhea Magnesium Hydroxide 30 ml 11/25/21 00:16 Magnesium Hydroxide (Mom) Oral Liqd Udc PO Q4H PRN Constipation Morphine Sulfate 2 mg 11/25/21 00:16 11/29/21 09:51 Morphine 2 Mg/1 Ml Inj IV 2 mg Q4H PRN Administration Pain, Moderate (4-6) Morphine Sulfate 4 mg 11/25/21 00:16 Morphine 4 Mg/1 Ml Inj IV Q4H PRN Pain , Severe (7-10) Ondansetron HCl 4 mg 11/25/21 00:16 Ondansetron 4 Mg/2 Ml Inj IV Q8H PRN Nausea And Vomiting Potassium Chloride 20 meq 11/26/21 10:00 11/29/21 09:52 Potassium Chloride Er 20 Meq Tab PO 20 meq QDAY ASIM Administration Sodium Chloride 10 ml 11/25/21 10:00 11/29/21 09:52 Sodium Chloride 0.9% 10 Ml Flush Syringe IV 10 ml BID ASIM Administration Sodium Chloride 10 ml 11/25/21 00:16 Sodium Chloride 0.9% 10 Ml Flush Syringe IV PRN PRN LINE FLUSH Tamsulosin HCl 0.4 mg 11/25/21 12:00 11/29/21 09:52 Tamsulosin 0.4 Mg Cap PO 0.4 mg QDAY ASIM Administration Nutrition/Malnutrition Assess - Dietary Evaluation Nutrition/Malnutrition Findings: Nutrition Notes Start: 11/25/21 12:34 Freq: Status: Active Protocol: Document 11/29/21 10:00 JOHN (Rec: 11/29/21 10:26 JOHN [id number]) Nutrition Notes Initial or Follow up Brief Note Current Diagnosis Diabetes,Hypertension, Malnutrition Other Pertinent Diagnosis Hyperglycemia, Electrolyte Imbalance, R-LE Swelling & Blister. Current Diet Cardiac/Consistent Carbohydrates Diet (since B ) Height 5 ft 7 in Weight 56.7 kg [place] Body Weight (kg) 67.27 BMI 19.5 Intake Prior to Admission Good Weight change and time frame Pt denies having loss body weight [employer]IM [employer]. 1.7 Kg body weight gain reported in 3 days. Weight Status Appropriate Subjective/Other Information RD consult for routine F/U on dietary advancement. No reports on Pt's PO intake of meals at the time, will assess at F/U. Pt is on Room Air, O2 saturation @ 98%, according to Physical Assessment History notes. Pt has missing teeth, according to Physical Assessment History notes. Pt presents R-LE bilsters and swelling as signs of concern for skin risk at this time, according to Physical Assessment History notes. Diarrhea has resolved and C Difficile was ruled out, according to Progress notes. Plans for discharge Pt home on 11/30, pending Wound Care assessment, according to Progress notes. Percent of energy/protein needs met: Prescribed Cardiac/Consistent Carbohydrates Diet provides for energy/protein needs (1, 977 Kcal/86 g) during LOS. #1 Nutrition Diagnosis Predicted suboptimal energy intake Diagnosis Progress(for reassessment Continues documentation) Is patient on ventilator? No Is Patient Ambulatory and/or Out of Bed Yes REE-([place]-St. Jeor-ambulatory/OOB) [ 1664.819 [id number]] Kcal/Kg value to use for calculation 31 Approximate Energy Requirements Using 1758 kcal/Kg Calculation Used for Recommendations Kcal/kg Additional Notes Protein: 1-1.2 g/Kg ABW; 57-68 g/day. Fluids: 1 ml/Kcal, or as per MD. Nutrition Intervention Change Diet Order: Continue Cardiac/Consistent Carbohydrates Diet. Goal #1 Adjust the dietary intervention to better serve Pt's needs and clinical conditions during LOS. Follow-Up By: 12/06/21 Additional Comments Continue monitoring food tolerance, %PO intake of meals , and BM.
[2021-11-30] MEDS: SODIUM CHLORIDE 0.9% 1000 ML 1,000 ML IV SCH (02:28)
[2021-11-30] MEDS: ISOSORB DINIT/HYDRALAZINE 20-37.5MG TAB PO SCH ×3 (06:16→21:26)
[2021-11-30] MEDS: HEPARIN 5,000 UNIT/1 ML VIAL SUB-Q SCH ×3 (06:16→21:26)
[2021-11-30] MEDS: LOPERAMIDE 2 MG CAP PO PRN (06:16)
[2021-11-30] MEDS: INSULIN LISPRO 100 UNIT/ML SUB-Q SCH ×4 (10:00→21:28)
[2021-11-30] MEDS: FERROUS SULFATE 325 MG TAB PO SCH (11:55)
[2021-11-30] MEDS: carvediloL 3.125 MG TAB PO SCH ×2 (11:55→21:26)
[2021-11-30] MEDS: TAMSULOSIN 0.4 MG CAP PO SCH (12:01)
[2021-11-30] MEDS: FUROSEMIDE 40 MG TAB PO SCH (12:01)
[2021-11-30] MEDS: POTASSIUM CHLORIDE ER 20 MEQ TAB PO SCH (12:02)
[2021-11-30] MEDS: MORPHINE 2 MG/1 ML INJ IV PRN ×2 (14:36→21:27)
--- NOTE | 2021-11-30 19:03 | Progress Note ---
Assessment and Plan Assessment and plan: 71-year-old -[place] male with known history of hypertension and diabetes mellitus presenting in the emergency room today complaining of diarrhea and lower extremity swelling which has been ongoing for the past 2 weeks. Lower extremity swelling and diarrhea has been getting worse. Patient indicates he has used [id number] medication without any significant improvement. He denies any abdominal pain. Denies any nausea or vomiting, no chest pain or shortness of breath, no headache or dizziness and no diaphoresis. Patient denies any fever or chills. Denies any sick contacts and no recent travel. He has an indwelling Lord catheter and indicates was diagnosed with UTI. Patient indicates he was treated for UTI about 3 weeks ago with antibioticsname known. Work-up in the emergency room on the day of admission, lab reveals hyperglycemia with blood glucose in the 400s, potassium of 2.1 initially. He was given boluses of IV potassium with improvement of potassium level to 2.7. Repeat labs also shows hypomagnesemia of 1.5. Patient is being admitted for the diarrhea, hyperglycemia and electrolyte imbalance. #Diarrhea- pending C-difficile PCR, ova and parasite PCR, and stool culture. #Hypokalemiaresolved #Hypomagnesemiaresolved #Hyperglycemia #Lower extremity swelling with blisterspending wound care evaluation #Electrolyte imbalance-probably secondary to the diarrhea. #Mild protein caloric malnutritionalbumin 3.1. Continue dietary supplementation. #Advanced care planning -Disease education conducted, care plan discussed, diagnoses discussed, prognosis discussed, and patient acknowledges understanding with care plan -Time: +30 min Disposition Plan: Continue medical management Total Time Spent with Patient (Minutes): 45 minutes History Interval history: No acute events overnight. Hospitalist Physical - Constitutional Vitals: Temp Pulse Resp BP Pulse Ox 97.4 F L 75 16 101/55 100 11/30/21 07:54 11/30/21 15:39 11/30/21 15:06 11/30/21 15:39 11/30/21 15:39 General appearance: Present: no acute distress, cachectic - EENT Eyes: Present: PERRL, EOM intact ENT: hearing intact, clear oral mucosa, dentition normal - Neck Neck: Present: supple, normal ROM - Respiratory Respiratory effort: normal Respiratory: bilateral: CTA - Cardiovascular Rhythm: regular Heart Sounds: Present: S1 & S2 - Extremities Extremities: no ischemia, pulses intact, pulses symmetrical, No edema, normal temperature, normal color Peripheral Pulses: within normal limits - Abdominal General gastrointestinal: soft, non-tender, non-distended, normal bowel sounds - Integumentary Integumentary: Present: clear, warm, dry - Psychiatric Psychiatric: appropriate mood/affect, intact judgment & insight, memory intact, cooperative - Neurologic Neurologic: CNII-XII intact, moves all extremities - Allied Health Allied health notes reviewed: nursing Results - Labs CBC & Chem 7: 11/26/21 04:51 11/28/21 05:42 Labs: Laboratory Last Values WBC 7.2 K/mm3 (4.5-11.0) 11/26/21 04:51 RBC 3.61 M/mm3 (3.65-5.03) L 11/26/21 04:51 Hgb 7.8 gm/dl (11.8-15.2) L 11/26/21 04:51 Hct 25.1 % (35.5-45.6) L D 11/26/21 04:51 MCV 70 fl (84-94) L 11/26/21 04:51 MCH 22 pg (28-32) L 11/26/21 04:51 MCHC 31 % (32-34) L 11/26/21 04:51 RDW 20.4 % (13.2-15.2) H 11/26/21 04:51 Plt Count 197 K/mm3 (140-440) 11/26/21 04:51 Lymph % (Auto) 25.7 % (13.4-35.0) 11/26/21 04:51 [place] % (Auto) 6.7 % (0.0-7.3) 11/26/21 04:51 Eos % (Auto) 1.1 % (0.0-4.3) 11/26/21 04:51 Baso % (Auto) 0.3 % (0.0-1.8) 11/26/21 04:51 Lymph # (Auto) 1.8 K/mm3 (1.2-5.4) 11/26/21 04:51 [place] # (Auto) 0.5 K/mm3 (0.0-0.8) 11/26/21 04:51 Eos # (Auto) 0.1 K/mm3 (0.0-0.4) 11/26/21 04:51 Baso # (Auto) 0.0 K/mm3 (0.0-0.1) 11/26/21 04:51 Seg Neutrophils % 66.2 % (40.0-70.0) 11/26/21 04:51 Seg Neutrophils # 4.7 K/mm3 (1.8-7.7) 11/26/21 04:51 Sodium 144 mmol/L (137-145) 11/28/21 05:42 Potassium 3.7 mmol/L (3.6-5.0) 11/28/21 05:42 Chloride 109.8 mmol/L (98-107) H 11/28/21 05:42 Carbon Dioxide 26 mmol/L (22-30) 11/28/21 05:42 Anion Gap 12 mmol/L 11/28/21 05:42 BUN 14 mg/dL (9-20) 11/28/21 05:42 Creatinine 1.0 mg/dL (0.8-1.3) 11/28/21 05:42 Estimated GFR > 60 ml/min 11/28/21 05:42 BUN/Creatinine Ratio 14 % 11/28/21 05:42 Glucose 304 mg/dL (75-100) H 11/28/21 05:42 POC Glucose 118 mg/dL (70-105) H 11/30/21 16:27 Calcium 8.0 mg/dL (8.4-10.2) L 11/28/21 05:42 Phosphorus 1.70 mg/dL (2.5-4.5) L 11/25/21 04:00 Magnesium 1.80 mg/dL (1.7-2.3) 11/25/21 04:40 Total Bilirubin 0.40 mg/dL (0.1-1.2) 11/24/21 11:04 AST 32 units/L (5-40) 11/24/21 11:04 ALT 43 units/L (7-56) 11/24/21 11:04 Alkaline Phosphatase 224 units/L (35-129) H 11/24/21 11:04 NT-Pro-B Natriuret Pep 1887 pg/mL (0-900) H 11/24/21 23:00 Total Protein 7.4 g/dL (6.3-8.2) 11/24/21 11:04 Albumin 3.1 g/dL (3.9-5) L 11/24/21 11:04 Albumin/Globulin Ratio 0.7 % 11/24/21 11:04 C. difficile Tox (PCR) Indeterminate (Negative) 11/24/21 15:22 Lord/IV: Voiding Method Indwelling Catheter Active Medications - Current Medications Current Medications: Generic Name Dose Route Start Last Admin Trade Name Freq PRN Reason Stop Dose Admin Acetaminophen 650 mg 11/25/21 00:16 11/28/21 12:37 Acetaminophen 325 Mg Tab PO 650 mg Q4H PRN Administration Pain MILD(1-3)/Fever >100.5/LEVINE Carvedilol 3.125 mg 11/25/21 22:00 11/30/21 11:55 Carvedilol 3.125 Mg Tab PO 3.125 mg BID ASIM Administration Dextrose 0 ml 11/25/21 00:16 Dextrose 50% In Water (25gm) 50 Ml Syringe IV Q30MIN PRN Hypoglycemia Protocol Ferrous Sulfate 325 mg 11/26/21 10:00 11/30/21 11:55 Ferrous Sulfate 325 Mg Tab PO 325 mg QDAY ASIM Administration Furosemide 40 mg 11/26/21 10:00 11/30/21 12:01 Furosemide 40 Mg Tab PO 40 mg QDAY ASIM Administration Heparin Sodium (Porcine) 5,000 unit 11/25/21 06:00 11/30/21 14:38 Heparin 5,000 Unit/1 Ml Vial SUB-Q 5,000 unit Q8HR ASIM Administration Sodium Chloride 1,000 mls @ 75 mls/hr 11/25/21 00:30 11/30/21 02:28 Nacl 0.9% 1000 Ml IV 75 mls/hr DIRECT ASIM Administration Insulin Human Lispro 0 unit 11/25/21 07:30 11/30/21 16:42 Insulin Lispro 100 Unit/Ml SUB-Q Not Given ACHS ASIM Protocol Isosorbide Dinitrate/Hydralazine 1 each 11/25/21 14:00 11/30/21 14:38 Isosorb Dinit/Hydralazine 20-37.5mg Tab PO 1 each Q8HR ASIM Administration Loperamide HCl 2 mg 11/27/21 08:00 11/30/21 06:16 Loperamide 2 Mg Cap PO 2 mg Q2H PRN Administration Diarrhea Magnesium Hydroxide 30 ml 11/25/21 00:16 Magnesium Hydroxide (Mom) Oral Liqd Udc PO Q4H PRN Constipation Morphine Sulfate 2 mg 11/25/21 00:16 11/30/21 14:36 Morphine 2 Mg/1 Ml Inj IV 2 mg Q4H PRN Administration Pain, Moderate (4-6) Morphine Sulfate 4 mg 11/25/21 00:16 Morphine 4 Mg/1 Ml Inj IV Q4H PRN Pain , Severe (7-10) Ondansetron HCl 4 mg 11/25/21 00:16 Ondansetron 4 Mg/2 Ml Inj IV Q8H PRN Nausea And Vomiting Potassium Chloride 20 meq 11/26/21 10:00 11/30/21 12:02 Potassium Chloride Er 20 Meq Tab PO 20 meq QDAY ASIM Administration Sodium Chloride 10 ml 11/25/21 10:00 11/30/21 14:38 Sodium Chloride 0.9% 10 Ml Flush Syringe IV 10 ml BID ASIM Administration Sodium Chloride 10 ml 11/25/21 00:16 Sodium Chloride 0.9% 10 Ml Flush Syringe IV PRN PRN LINE FLUSH Tamsulosin HCl 0.4 mg 11/25/21 12:00 11/30/21 12:01 Tamsulosin 0.4 Mg Cap PO 0.4 mg QDAY ASIM Administration Nutrition/Malnutrition Assess - Dietary Evaluation Nutrition/Malnutrition Findings: Nutrition Notes Start: 11/25/21 12:34 Freq: Status: Active Protocol: Document 11/29/21 10:00 JOHN (Rec: 11/29/21 10:26 JOHN [id number]) Nutrition Notes Initial or Follow up Brief Note Current Diagnosis Diabetes,Hypertension, Malnutrition Other Pertinent Diagnosis Hyperglycemia, Electrolyte Imbalance, R-LE Swelling & Blister. Current Diet Cardiac/Consistent Carbohydrates Diet (since B ) Height 5 ft 7 in Weight 56.7 kg [place] Body Weight (kg) 67.27 BMI 19.5 Intake Prior to Admission Good Weight change and time frame Pt denies having loss body weight [employer]. 1.7 Kg body weight gain reported in 3 days. Weight Status Appropriate Subjective/Other Information RD consult for routine F/U on dietary advancement. No reports on Pt's PO intake of meals at the time, will assess at F/U. Pt is on Room Air, O2 saturation @ 98%, according to Physical Assessment History notes. Pt has missing teeth, according to Physical Assessment History notes. Pt presents R-LE bilsters and swelling as signs of concern for skin risk at this time, according to Physical Assessment History notes. Diarrhea has resolved and C Difficile was ruled out, according to Progress notes. Plans for discharge Pt home on 11/30, pending Wound Care assessment, according to Progress notes. Percent of energy/protein needs met: Prescribed Cardiac/Consistent Carbohydrates Diet provides for energy/protein needs (1, 977 Kcal/86 g) during LOS. #1 Nutrition Diagnosis Predicted suboptimal energy intake Diagnosis Progress(for reassessment Continues documentation) Is patient on ventilator? No Is Patient Ambulatory and/or Out of Bed Yes REE-([place]-St. Jeor-ambulatory/OOB) [ 1664.819 [id number]] Kcal/Kg value to use for calculation 31 Approximate Energy Requirements Using 1758 kcal/Kg Calculation Used for Recommendations Kcal/kg Additional Notes Protein: 1-1.2 g/Kg ABW; 57-68 g/day. Fluids: 1 ml/Kcal, or as per MD. Nutrition Intervention Change Diet Order: Continue Cardiac/Consistent Carbohydrates Diet. Goal #1 Adjust the dietary intervention to better serve Pt's needs and clinical conditions during LOS. Follow-Up By: 12/06/21 Additional Comments Continue monitoring food tolerance, %PO intake of meals , and BM.
[2021-12-01] MEDS: HEPARIN 5,000 UNIT/1 ML VIAL SUB-Q SCH ×3 (06:59→21:18)
[2021-12-01] MEDS: ISOSORB DINIT/HYDRALAZINE 20-37.5MG TAB PO SCH ×3 (06:59→21:40)
[2021-12-01] MEDS: MORPHINE 2 MG/1 ML INJ IV PRN ×3 (08:25→21:25)
[2021-12-01] MEDS: INSULIN LISPRO 100 UNIT/ML SUB-Q SCH ×4 (08:25→21:20)
[2021-12-01] MEDS: LOPERAMIDE 2 MG CAP PO PRN (10:00)
[2021-12-01] MEDS: carvediloL 3.125 MG TAB PO SCH ×2 (10:00→21:18)
[2021-12-01] MEDS: POTASSIUM CHLORIDE ER 20 MEQ TAB PO SCH (10:00)
[2021-12-01] MEDS: FERROUS SULFATE 325 MG TAB PO SCH (10:00)
[2021-12-01] MEDS: FUROSEMIDE 40 MG TAB PO SCH (10:00)
[2021-12-01] MEDS: TAMSULOSIN 0.4 MG CAP PO SCH (10:00)
[2021-12-01] MEDS ORDERED: FUROSEMIDE 40 MG/4 ML INJ IV NR (10:53)
--- NOTE | 2021-12-01 10:53 | Progress Note ---
Assessment and Plan Assessment and plan: 71-year-old -[place] male with known history of hypertension and diabetes mellitus presenting in the emergency room today complaining of diarrhea and lower extremity swelling which has been ongoing for the past 2 weeks. Lower extremity swelling and diarrhea has been getting worse. Patient indicates he has used [id number] medication without any significant improvement. He denies any abdominal pain. Denies any nausea or vomiting, no chest pain or shortness of breath, no headache or dizziness and no diaphoresis. Patient denies any fever or chills. Denies any sick contacts and no recent travel. He has an indwelling Lord catheter and indicates was diagnosed with UTI. Patient indicates he was treated for UTI about 3 weeks ago with antibioticsname known. Work-up in the emergency room on the day of admission, lab reveals hyperglycemia with blood glucose in the 400s, potassium of 2.1 initially. He was given boluses of IV potassium with improvement of potassium level to 2.7. Repeat labs also shows hypomagnesemia of 1.5. Patient is being admitted for the diarrhea, hyperglycemia and electrolyte imbalance. #Diarrhea- pending C-difficile PCR (likely negative given sample); unremarkable ova and parasite PCR, and stool culture. #Hypokalemiaresolved #Hypomagnesemiaresolved #Hyperglycemia #Lower extremity swelling with blisters Continue daily wound dressing changes. Giving IV lasix 20mg x1 for symptomatic improvement. #Electrolyte imbalance-probably secondary to the diarrhea. #Mild protein caloric malnutritionalbumin 3.1. Continue dietary supplementation. #Advanced care planning -Disease education conducted, care plan discussed, diagnoses discussed, prognosis discussed, and patient acknowledges understanding with care plan -Time: +30 min Disposition Plan: Pending possible discharge tomorrow Total Time Spent with Patient (Minutes): 45 minutes History Interval history: No acute events overnight. Hospitalist Physical - Constitutional Vitals: Temp Pulse Resp BP Pulse Ox 97.4 F L 79 16 121/65 98 12/01/21 07:26 12/01/21 10:00 12/01/21 08:55 12/01/21 07:26 12/01/21 03:51 General appearance: Present: no acute distress, cachectic - EENT Eyes: Present: PERRL, EOM intact ENT: hearing intact, clear oral mucosa, dentition normal - Neck Neck: Present: supple, normal ROM - Respiratory Respiratory effort: normal Respiratory: bilateral: CTA - Cardiovascular Rhythm: regular Heart Sounds: Present: S1 & S2 - Extremities Extremities: no ischemia, pulses intact, pulses symmetrical, normal temperature, normal color Peripheral Pulses: within normal limits - Abdominal General gastrointestinal: soft, non-tender, non-distended, normal bowel sounds - Integumentary Integumentary: Present: clear, warm, dry - Psychiatric Psychiatric: appropriate mood/affect, intact judgment & insight, memory intact, cooperative - Neurologic Neurologic: CNII-XII intact, moves all extremities - Allied Health Allied health notes reviewed: nursing Results - Labs CBC & Chem 7: 11/26/21 04:51 11/28/21 05:42 Labs: Laboratory Last Values WBC 7.2 K/mm3 (4.5-11.0) 11/26/21 04:51 RBC 3.61 M/mm3 (3.65-5.03) L 11/26/21 04:51 Hgb 7.8 gm/dl (11.8-15.2) L 11/26/21 04:51 Hct 25.1 % (35.5-45.6) L D 11/26/21 04:51 MCV 70 fl (84-94) L 11/26/21 04:51 MCH 22 pg (28-32) L 11/26/21 04:51 MCHC 31 % (32-34) L 11/26/21 04:51 RDW 20.4 % (13.2-15.2) H 11/26/21 04:51 Plt Count 197 K/mm3 (140-440) 11/26/21 04:51 Lymph % (Auto) 25.7 % (13.4-35.0) 11/26/21 04:51 Nye % (Auto) 6.7 % (0.0-7.3) 11/26/21 04:51 Eos % (Auto) 1.1 % (0.0-4.3) 11/26/21 04:51 Baso % (Auto) 0.3 % (0.0-1.8) 11/26/21 04:51 Lymph # (Auto) 1.8 K/mm3 (1.2-5.4) 11/26/21 04:51 Nye # (Auto) 0.5 K/mm3 (0.0-0.8) 11/26/21 04:51 Eos # (Auto) 0.1 K/mm3 (0.0-0.4) 11/26/21 04:51 Baso # (Auto) 0.0 K/mm3 (0.0-0.1) 11/26/21 04:51 Seg Neutrophils % 66.2 % (40.0-70.0) 11/26/21 04:51 Seg Neutrophils # 4.7 K/mm3 (1.8-7.7) 11/26/21 04:51 Sodium 144 mmol/L (137-145) 11/28/21 05:42 Potassium 3.7 mmol/L (3.6-5.0) 11/28/21 05:42 Chloride 109.8 mmol/L (98-107) H 11/28/21 05:42 Carbon Dioxide 26 mmol/L (22-30) 11/28/21 05:42 Anion Gap 12 mmol/L 11/28/21 05:42 BUN 14 mg/dL (9-20) 11/28/21 05:42 Creatinine 1.0 mg/dL (0.8-1.3) 11/28/21 05:42 Estimated GFR > 60 ml/min 11/28/21 05:42 BUN/Creatinine Ratio 14 % 11/28/21 05:42 Glucose 304 mg/dL (75-100) H 11/28/21 05:42 POC Glucose 114 mg/dL (70-105) H 12/01/21 07:25 Calcium 8.0 mg/dL (8.4-10.2) L 11/28/21 05:42 Phosphorus 1.70 mg/dL (2.5-4.5) L 11/25/21 04:00 Magnesium 1.80 mg/dL (1.7-2.3) 11/25/21 04:40 Total Bilirubin 0.40 mg/dL (0.1-1.2) 11/24/21 11:04 AST 32 units/L (5-40) 11/24/21 11:04 ALT 43 units/L (7-56) 11/24/21 11:04 Alkaline Phosphatase 224 units/L (35-129) H 11/24/21 11:04 NT-Pro-B Natriuret Pep 1887 pg/mL (0-900) H 11/24/21 23:00 Total Protein 7.4 g/dL (6.3-8.2) 11/24/21 11:04 Albumin 3.1 g/dL (3.9-5) L 11/24/21 11:04 Albumin/Globulin Ratio 0.7 % 11/24/21 11:04 C. difficile Tox (PCR) Indeterminate (Negative) 11/24/21 15:22 Lord/IV: Voiding Method Indwelling Catheter Active Medications - Current Medications Current Medications: Generic Name Dose Route Start Last Admin Trade Name Freq PRN Reason Stop Dose Admin Acetaminophen 650 mg 11/25/21 00:16 11/28/21 12:37 Acetaminophen 325 Mg Tab PO 650 mg Q4H PRN Administration Pain MILD(1-3)/Fever >100.5/LEVINE Carvedilol 3.125 mg 11/25/21 22:00 12/01/21 10:00 Carvedilol 3.125 Mg Tab PO 3.125 mg BID ASIM Administration Dextrose 0 ml 11/25/21 00:16 Dextrose 50% In Water (25gm) 50 Ml Syringe IV Q30MIN PRN Hypoglycemia Protocol Ferrous Sulfate 325 mg 11/26/21 10:00 12/01/21 10:00 Ferrous Sulfate 325 Mg Tab PO 325 mg QDAY ASIM Administration Furosemide 40 mg 11/26/21 10:00 12/01/21 10:00 Furosemide 40 Mg Tab PO 40 mg QDAY ASIM Administration Heparin Sodium (Porcine) 5,000 unit 11/25/21 06:00 12/01/21 06:59 Heparin 5,000 Unit/1 Ml Vial SUB-Q 5,000 unit Q8HR ASIM Administration Insulin Human Lispro 0 unit 11/25/21 07:30 12/01/21 08:25 Insulin Lispro 100 Unit/Ml SUB-Q Not Given ACHS [facility] Protocol Isosorbide Dinitrate/Hydralazine 1 each 11/25/21 14:00 12/01/21 06:59 Isosorb Dinit/Hydralazine 20-37.5mg Tab PO 1 each Q8HR ASIM Administration Magnesium Hydroxide 30 ml 11/25/21 00:16 Magnesium Hydroxide (Mom) Oral Liqd Udc PO Q4H PRN Constipation Morphine Sulfate 2 mg 11/25/21 00:16 12/01/21 08:25 Morphine 2 Mg/1 Ml Inj IV 2 mg Q4H PRN Administration Pain, Moderate (4-6) Morphine Sulfate 4 mg 11/25/21 00:16 Morphine 4 Mg/1 Ml Inj IV Q4H PRN Pain , Severe (7-10) Ondansetron HCl 4 mg 11/25/21 00:16 Ondansetron 4 Mg/2 Ml Inj IV Q8H PRN Nausea And Vomiting Potassium Chloride 20 meq 11/26/21 10:00 12/01/21 10:00 Potassium Chloride Er 20 Meq Tab PO 20 meq QDAY ASIM Administration Sodium Chloride 10 ml 11/25/21 10:00 12/01/21 10:03 Sodium Chloride 0.9% 10 Ml Flush Syringe IV 10 ml BID ASIM Administration Sodium Chloride 10 ml 11/25/21 00:16 Sodium Chloride 0.9% 10 Ml Flush Syringe IV PRN PRN LINE FLUSH Tamsulosin HCl 0.4 mg 11/25/21 12:00 12/01/21 10:00 Tamsulosin 0.4 Mg Cap PO 0.4 mg QDAY ASIM Administration Nutrition/Malnutrition Assess - Dietary Evaluation Nutrition/Malnutrition Findings: Nutrition Notes Start: 11/25/21 12:34 Freq: Status: Active Protocol: Document 11/29/21 10:00 JOHN (Rec: 11/29/21 10:26 JOHN [id number]) Nutrition Notes Initial or Follow up Brief Note Current Diagnosis Diabetes,Hypertension, Malnutrition Other Pertinent Diagnosis Hyperglycemia, Electrolyte Imbalance, R-LE Swelling & Blister. Current Diet Cardiac/Consistent Carbohydrates Diet (since B ) Height 5 ft 7 in Weight 56.7 kg [place]isch[place]s Body Weight (kg) 67.27 BMI 19.5 Intake Prior to Admission Good Weight change and time frame Pt denies having loss body weight [employer]. 1.7 Kg body weight gain reported in 3 days. Weight Status Appropriate Subjective/Other Information RD consult for routine F/U on dietary advancement. No reports on Pt's PO intake of meals at the time, will assess at F/U. Pt is on Room Air, O2 saturation @ 98%, according to Physical Assessment History notes. Pt has missing teeth, according to Physical Assessment History notes. Pt presents R-LE bilsters and swelling as signs of concern for skin risk at this time, according to Physical Assessment History notes. Diarrhea has resolved and C Difficile was ruled out, according to Progress notes. Plans for discharge Pt home on 11/30, pending Wound Care assessment, according to Progress notes. Percent of energy/protein needs met: Prescribed Cardiac/Consistent Carbohydrates Diet provides for energy/protein needs (1, 977 Kcal/86 g) during LOS. #1 Nutrition Diagnosis Predicted suboptimal energy intake Diagnosis Progress(for reassessment Continues documentation) Is patient on ventilator? No Is Patient Ambulatory and/or Out of Bed Yes REE-([place]-St. Jeor-ambulatory/OOB) [ 1664.819 [id number]] Kcal/Kg value to use for calculation 31 Approximate Energy Requirements Using 1758 kcal/Kg Calculation Used for Recommendations Kcal/kg Additional Notes Protein: 1-1.2 g/Kg ABW; 57-68 g/day. Fluids: 1 ml/Kcal, or as per MD. Nutrition Intervention Change Diet Order: Continue Cardiac/Consistent Carbohydrates Diet. Goal #1 Adjust the dietary intervention to better serve Pt's needs and clinical conditions during LOS. Follow-Up By: 12/06/21 Additional Comments Continue monitoring food tolerance, %PO intake of meals , and BM.
[2021-12-01] MEDS ORDERED: LOPERAMIDE 2 MG CAP PO PRN (12:30)
[2021-12-02] MEDS: HEPARIN 5,000 UNIT/1 ML VIAL SUB-Q SCH ×2 (07:04→14:25)
[2021-12-02] MEDS: ISOSORB DINIT/HYDRALAZINE 20-37.5MG TAB PO SCH ×2 (07:04→14:24)
[2021-12-02 07:58] VITALS: BP 95/51
[2021-12-02] MEDS: INSULIN LISPRO 100 UNIT/ML SUB-Q SCH ×2 (08:30→13:34)
[2021-12-02] MEDS: MORPHINE 2 MG/1 ML INJ IV PRN (09:01)
[2021-12-02] MEDS ORDERED: FUROSEMIDE 40 MG/4 ML INJ IV SCH (10:00)
[2021-12-02] MEDS: FERROUS SULFATE 325 MG TAB PO SCH (10:29)
[2021-12-02] MEDS: POTASSIUM CHLORIDE ER 20 MEQ TAB PO SCH (10:30)
[2021-12-02] MEDS: LOPERAMIDE 2 MG CAP PO SCH ×3 (10:30→14:25)
[2021-12-02] MEDS: TAMSULOSIN 0.4 MG CAP PO SCH (10:30)
--- NOTE | 2021-12-02 10:48 | Discharge Summary ---
Providers - Providers Date of Admission: 11/25/21 00:17 Date of discharge: 12/02/21 Attending physician: ROBBIE HORN MD 11/25/21 00:17 Consult to Dietitian/Nutrition [CONS] Routine Physician Instructions: Reason For Exam: Reason for Consult: Diet education 11/27/21 07:59 Physical Therapy Evaluation and Treat [CONS] Routine Comment: Reason For Exam: Evaluate and treat 11/27/21 12:45 Consult to Wound/ET Nurse [CONS] Routine Reason For Exam: wound eval right leg Primary care physician: [employer] OF [employer] Hospitalization Reason for admission: Diarrhea, hypokalemia Condition: Stable Pertinent studies: Reviewed. Procedures: None. Hospital course: Patient is a 71-year-old male past medical history of hypertension, noninsulin- dependent type 2 diabetes mellitus, urinary obstruction with Lord catheter, and iron deficiency anemia who presented to the ED with complaints of worsening diarrhea of 4 approximately 2 weeks. The patient described using [id number] medications without any significant improvement. He denied any abdominal pain, nausea, vomiting, chest pain, shortness of breath, headache, dizziness, diaphoresis, fever or chills, sick contacts, or recent travel. On presentation in the ED, the patient was found to be hemodynamically stable get hypertensive with a blood pressure of 161/83. Patient had labs are remarkable for potassium of 2.1 and bicarbonate of 35. Patient was admitted for further management of diarrhea. Patient underwent stool culture and ova and parasite that have been found to be unremarkable. C. difficile was ordered, and 3 samples were sent to the lab for processing. There is low clinical suspicion for C. difficile as the patient has not been on any antibiotics, the stool was not completely liquid, and the patient is remained hemodynamically stable without becoming febrile. The patient will be discharged with supportive therapy, and he has been educated about the importance of closely monitoring his diet to determine if the looser stools could be related to dietary intake. The patient's lower extremities were evaluated by wound care, and the patient is to change his dressing twice daily with Dakins solution. Patient expresses understanding. The patient is medically clear for discharge. Disposition: 01 HOME / SELF CARE / HOMELESS Final Discharge Diagnosis (Prints w/discharge instructions): Noninfectious diarrhea, hypokalemia, hypomagnesemia, [id number] type 2 diabetes mellitus with hyperglycemia, lower extremity swelling with blisters, mild protein caloric malnutrition Time spent for discharge: 45 min Core Measure Documentation - Palliative Care Palliative Care/ Comfort Measures: Not Applicable - Core Measures Any of the following diagnoses?: none Exam - Constitutional Vitals: Temp Pulse Resp BP Pulse Ox 97.4 F L 76 16 95/51 100 12/02/21 07:56 12/02/21 07:04 12/02/21 07:56 12/02/21 07:56 12/02/21 07:56 General appearance: Present: no acute distress, well-nourished - EENT Eyes: Present: PERRL, EOM intact ENT: hearing intact, clear oral mucosa, dentition normal - Neck Neck: Present: supple, normal ROM - Respiratory Respiratory effort: normal Respiratory: bilateral: CTA - Cardiovascular Rhythm: regular Heart Sounds: Present: S1 & S2 - Extremities Extremities: no ischemia, pulses intact, pulses symmetrical, normal temperature, normal color Extremity abnormal: edema (1+ pitting edema bilateral lower extremities to mid edwards) Peripheral Pulses: within normal limits - Abdominal General gastrointestinal: Present: soft, non-tender, non-distended, normal bowel sounds Male genitourinary: Present: deferred (Indwelling Lord catheter) - Rectal Rectal Exam: deferred - Integumentary Integumentary: Present: clear, warm, dry - Musculoskeletal Musculoskeletal: strength equal bilaterally - Psychiatric Psychiatric: appropriate mood/affect, intact judgment & insight, memory intact, cooperative - Neurologic Neurologic: CNII-XII intact, moves all extremities - Allied Health Allied health notes reviewed: nursing Plan Activity: advance as tolerated Diet: low salt, diabetic Additional Instructions: Patient is a 71-year-old male past medical history of hypertension, noninsulin-dependent type 2 diabetes mellitus, urinary obstruction with Lord catheter, and iron deficiency anemia who presented to the ED with complaints of worsening diarrhea of 4 approximately 2 weeks. The patient described using scfe-ntt-vrrffto medications without any significant improvement. He denied any abdominal pain, nausea, vomiting, chest pain, shortness of breath, headache, dizziness, diaphoresis, fever or chills, sick contacts, or recent travel. On presentation in the ED, the patient was found to be hemodynamically stable get hypertensive with a blood pressure of 161/83. Patient had labs are remarkable for potassium of 2.1 and bicarbonate of 35. Patient was admitted for further management of diarrhea. Patient underwent stool culture and ova and parasite that have been found to be unremarkable. C. difficile was ordered, and 3 samples were sent to the lab for processing. There is low clinical suspicion for C. difficile as the patient has not been on any antibiotics, the stool was not completely liquid, and the patient is remained hemodynamically stable without becoming febrile. The patient will be discharged with supportive therapy, and he has been educated about the importance of closely monitoring his diet to determine if the looser stools could be related to dietary intake. The patient's lower extremities were evaluated by wound care, and the patient is to change his dressing twice daily with Dakins solution. Patient expresses understanding. The patient is medically clear for discharge. Care Plan Goals: Patient is medically cleared for discharge. Assessment: Patient is a 71-year-old male past medical history of hypertension, noninsulin- dependent type 2 diabetes mellitus, urinary obstruction with Lord catheter, and iron deficiency anemia who presented to the ED with complaints of worsening diarrhea of 4 approximately 2 weeks. The patient described using [id number] medications without any significant improvement. He denied any abdominal pain, nausea, vomiting, chest pain, shortness of breath, headache, dizziness, diaphoresis, fever or chills, sick contacts, or recent travel. On presentation in the ED, the patient was found to be hemodynamically stable get hypertensive with a blood pressure of 161/83. Patient had labs are remarkable for potassium of 2.1 and bicarbonate of 35. Patient was admitted for further management of diarrhea. Patient underwent stool culture and ova and parasite that have been found to be unremarkable. C. difficile was ordered, and 3 samples were sent to the lab for processing. There is low clinical suspicion for C. difficile as the patient has not been on any antibiotics, the stool was not completely liquid, and the patient is remained hemodynamically stable without becoming febrile. The patient will be discharged with supportive therapy, and he has been educated about the importance of closely monitoring his diet to determine if the looser stools could be related to dietary intake. The patient's lower extremities were evaluated by wound care, and the patient is to change his dressing twice daily with Dakins solution. Patient expresses understanding. The patient is medically clear for discharge. Follow up with: PRIMARY MD MELISSA [Primary Care Provider] - 3-5 Days Prescriptions: Isosorb Dinit/Hydralazine [Bidil 20/37.5MG] 1 each PO Q8HR #90 tablet Tamsulosin [Flomax] 0.4 mg PO QDAY #90 cap Loperamide [Imodium] 2 mg PO Q2H #30 capsule Furosemide [Lasix TAB] 40 mg PO QDAY #30 tablet
[2021-12-02] MEDS: carvediloL 3.125 MG TAB PO SCH (14:24)
[2021-12-02] MEDS: FUROSEMIDE 40 MG TAB PO SCH (14:25)
== END 2021-12-02 17:56 | disposition home health service (06) | DRG 392 ==
LOC: ED 18:26 → 4A 11-25 00:17
PROVIDERS: ADMIT Internal Medicine Geriatric Medicine; ATTEND Student in an Organized Health Care Education/Training Program
DX: K52.9 Noninfective gastroenteritis and colitis, unspecified (principal); E44.1 Mild protein-calorie malnutrition; Z68.1 Body mass index [BMI] 19.9 or less, adult; E87.6 Hypokalemia; E83.42 Hypomagnesemia; I10 Essential (primary) hypertension; E11.65 Type 2 diabetes mellitus with hyperglycemia
CPT/HCPCS: 36415; 71045; 80048; 80053; 82962; 83735; 83880; 84100; 84132; 85025; 87045; 87177; 87493; 93306; 96372; 96374; G0378; Q9967; C8929; J1644; J1815; J1940; J2270; J3475; J3480; J7030

== ENCOUNTER 2021-12-19 19:34 | Emergency (ER) | payer MEDICARE ==
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
[2021-12-19] MEDS ORDERED: MORPHINE 4 MG/1 ML INJ IV ONE (20:29)
[2021-12-19 21:16] LABS: Alanine Aminotransferase 10 units/L (7-56); Albumin 1.7 g/dL (3.9-5); BUN/Creatinine Ratio 8; Blood Urea Nitrogen 11 mg/dL (9-20); Calcium 7.2 mg/dL (8.4-10.2); Hemolysis Index 1
[2021-12-19 21:18] LABS: Basophils % (Auto) 0.2 % (0.0-1.8); Eosinophils # (Auto) 0.1 K/mm3 (0.0-0.4); Eosinophils % (Auto) 0.7 % (0.0-4.3); Hematocrit 21.6 % (35.5-45.6); Hemoglobin 6.6 gm/dl (11.8-15.2); Lymphocytes # (Auto) 1.8 K/mm3 (1.2-5.4); Lymphocytes % (Auto) 16.1 % (13.4-35.0); Mean Corpuscular HGB Conc 31 % (32-34); Mean Corpuscular Volume 74 fl (84-94); Monocytes # (Auto) 0.7 K/mm3 (0.0-0.8); Monocytes % (Auto) 6.2 % (0.0-7.3); Platelet Count 365 K/mm3 (140-440); Red Blood Count 2.93 M/mm3 (3.65-5.03)
[2021-12-19] MEDS ORDERED: INSULIN REGULAR, HUMAN 100 UNITS/1 ML IV ONE (21:22)
[2021-12-19] MEDS ORDERED: SODIUM CHLORIDE 0.9% 500 ML 500 ML IV ONE ×2 (21:23→21:47)
[2021-12-19 21:33] LABS: INR 1.29 (0.87-1.13)
[2021-12-19 21:34] LABS: Partial Thromboplastin Time 46.2 Sec. (24.2-36.6)
[2021-12-19] MEDS ORDERED: MAGNESIUM SULFATE 2 GM/50 ML BAG IV ONE (21:47)
[2021-12-19 22:12] LABS: Iron 17 ug/dL (49-181); Total Iron Binding Capacity 97 mcg/dL (250-450)
--- NOTE | 2021-12-19 22:24 | Cat Scan Report ---
CTA ABDOMEN AND PELVIS WITHOUT AND WITH IV CONTRAST INDICATION: Abdominal pain, with diarrhea and bloody stool 100ml of [id number]. TECHNIQUE: Axial CT images were obtained through the abdomen and pelvis before and after injection of 100 cc Omn ipaque 350 IV contrast. 3 plane MIP reconstructions were produced. All CT scans at this location are performed using CT dose reduction for ALARA by means of automated exposure control. COMPARISON: CT abdomen and pelvis without contrast from 11/19/2020. FINDINGS: VASCULAR FINDINGS: AORTA: There is mild nonobstructive atherosclerosis. No other significant abnormality. CELIAC TRUNK: No significant abnormality. SUPERIOR MESENTERIC ARTERY: No significant abnormality. RENAL ARTERIES: No significant abnormality of the right renal artery. Prior left nephrectomy. INFERIOR MESENTERIC ARTERY: No significant abnormality. RIGHT ILIAC ARTERIES: There is mild nonobstructive atherosclerosis without other significant abnormal ities. LEFT ILIAC ARTERIES: There is mild nonobstructive atherosclerosis without other significant abnormali ties. FEMORAL ARTERIES: There is mild bilateral nonobstructive atherosclerosis. No other significant abnorm ality. NONTARGET STRUCTURES: ABDOMEN: There is a suspected lower right chest wall abscess measuring 6.2 x 4.0 cm on image 13 of se connor 7 with extension into the right middle lobe. Another lateral right abdominal wall abscess is see n at the level of the inferior aspect of the right hepatic lobe on image 37 of series 7 measuring 4.7 x 2.4 cm with suspected intra-abdominal extension. Generalized peritoneal edema is noted with a smal l amount of ascites. No active contrast extravasation is seen along the GI tract. No other significan t abnormality. PELVIS: The prostate gland is severely enlarged with mass effect on the urinary bladder. A Lord cath eter is in expected position with air in the bladder likely related to catheter placement. There is m oderate generalized bladder wall thickening with mild perivesical fat stranding. SKELETAL: No acute findings. No significant interval changes. ADDITIONAL FINDINGS: None. IMPRESSION: 1. No acute vascular abnormality of the abdomen or pelvis. No evidence of an active GI bleed. 2. Suspected right chest and abdominal wall abscesses as described above. 3. Additional findings as above. Signer Name: Ramiro Thornton MD Signed: 12/19/2021 10:20 PM Workstation Name: [id number]
[2021-12-19] MEDS ORDERED: PIPERACIL/TAZOBACTA 4.5/NS 100 4.5 GM/100 ML VIAL IV ONE (22:30)
[2021-12-19] MEDS ORDERED: VANCOMYCIN/NS 1 GM/250 ML 1 GM/250 ML BAG IV ONE (22:30)
[2021-12-19] MEDS ORDERED: MORPHINE 2 MG/1 ML INJ IV ONE (22:30)
[2021-12-20] MEDS ORDERED: MORPHINE 4 MG/1 ML INJ IV ONE (00:56)
[2021-12-20] MEDS ORDERED: ONDANSETRON 4 MG/2 ML INJ IV PRN (00:56)
[2021-12-20] MEDS ORDERED: DEXTROSE 50% IN WATER (25GM) 50 ML SYRINGE IV PRN (01:00)
[2021-12-20 01:16] LABS: Hematocrit 26.2 % (35.5-45.6); Hemoglobin 8.5 gm/dl (11.8-15.2)
[2021-12-20] MEDS ORDERED: PIPERACIL/TAZOBACTA 4.5/NS 100 4.5 GM/100 ML VIAL IV ONE (02:40)
[2021-12-20] MEDS: INSULIN REGULAR, HUMAN 100 UNITS/1 ML SUB-Q SCH ×3 (05:12→16:12)
[2021-12-20] MEDS ORDERED: MORPHINE 2 MG/1 ML INJ IV ONE (05:42)
[2021-12-20] MEDS ORDERED: VANCOMYCIN 1,250 MG in SODIUM CHLORIDE 0.9% 250ML 250 ML IV SCH (06:00)
[2021-12-20] MEDS ORDERED: VANCOMYCIN/NS 1 GM/250 ML 1 GM/250 ML BAG IV SCH (06:00)
[2021-12-20] MEDS ORDERED: metFORMIN XR 500MG TAB PO SCH (08:00)
[2021-12-20] MEDS ORDERED: FERROUS SULFATE 325 MG TAB PO SCH (10:00)
--- NOTE | 2021-12-20 10:39 | Electrocardiograph Report ---
[facility] Test Date: 2021-12-19 Test Time: 20:41:28 Pat Name: CESAR LOCKHART Department: Room: Gender: M Pearl Cutter: OMEGA : 1950 Requested By: ANGELLA GARCIA Order Number: [id number] Reading MD: Sissy Braswell Measurements Intervals [place] Rate: 79 P: 69 AK: 155 QRS: -38 QRSD: 138 T: 62 QT: 449 QTc: 515 Interpretive Statements Sinus rhythm Right bundle branch block No previous ECG available for comparison Electronically Signed On 12-20-2021 10:39:30 EDT by Sissy Braswell
[2021-12-20] MEDS ORDERED: PIPERACILLIN/TAZOBACTAM 3.375 3.375 GM/50 ML BAG IV SCH (11:00)
[2021-12-20] MEDS ORDERED: MORPHINE 2 MG/1 ML INJ IV PRN (16:38)
[2021-12-20 20:29] VITALS: BP 136/77
== END 2021-12-20 20:45 | disposition short-term general hospital (02) ==
LOC: ED 19:34
DX: R10.9 Unspecified abdominal pain (principal); Z46.6 Encounter for fitting and adjustment of urinary device; E11.65 Type 2 diabetes mellitus with hyperglycemia; I10 Essential (primary) hypertension; R19.5 Other fecal abnormalities; E83.42 Hypomagnesemia
CPT/HCPCS: 36415; 74174; 80053; 82140; 82270; 82550; 82728; 82805; 83550; 83735; 85014; 85018; 85025; 85610; 85730; 86850; 86900; 86901; 86920; 87040; 93005; 96365; 96366; 96367; 96375; 96376; 99291; 99292; J2270; J2543; J3370; J3475; J7040; J7050; P9016; Q9967; 99284; 99285; J1815

== ENCOUNTER 2022-01-12 13:20 | Emergency (ER) | payer MEDICARE, MEDICAID ==
[2022-01-12 13:31] VITALS: BP 152/78
--- NOTE | 2022-01-12 14:08 | Emergency Department Report ---
ED General Adult HPI - General Chief complaint: Urogenital-Male Stated complaint: UNABLE TO URINATE X4HRS Time Seen by Provider: 01/12/22 13:56 Source: patient, EMS Mode of arrival: Stretcher Limitations: No Limitations - History of Present Illness Initial comments: The patient presents to the emergency department with a chief complaint of urinary retention. The patient has an indwelling catheter that was placed yesterday at [facility] and the patient states that initially was draining well but now is not draining. Patient denies fever, chest pain, shortness breath, or headache -: Gradual Location: abdomen Radiation: non-radiation Severity scale (0 -10): 10 Consistency: constant Improves with: none Worsens with: none Associated Symptoms: denies other symptoms Treatments Prior to Arrival: none - Related Data Home Medications Medication Instructions Recorded Confirmed Last Taken Insulin Aspart (Nf) [NovoLOG 12 units SQ TIDAC 11/25/21 11/25/21 Unknown Flexpen] Insulin Glargine,Hum.rec.anlog 42 unit SQ HS 11/25/21 11/25/21 Unknown [Lantus Solostar] Previous Rx's Medication Instructions Recorded Last Taken Type metFORMIN XR [Glucophage XR] 500 mg PO QDDIAB #30 tablet 06/13/19 11/22/21 Rx Ferrous Sulfate [Feosol 325 MG tab] 325 mg PO QDAY 30 Days #30 tablet 12/02/21 11/22/21 Rx Furosemide [Lasix TAB] 40 mg PO QDAY #30 tablet 12/02/21 Unknown Rx Isosorb Dinit/Hydralazine [Bidil 1 each PO Q8HR #90 tablet 12/02/21 Unknown Rx 20/37.5MG] Loperamide [Imodium] 2 mg PO Q2H #30 capsule 12/02/21 Unknown Rx Tamsulosin [Flomax] 0.4 mg PO QDAY #90 cap 12/02/21 Unknown Rx carvediloL [Coreg] 3.125 mg PO BID #60 tablet 12/02/21 11/22/21 Rx Tamsulosin [Flomax] 0.4 mg PO QDAY #30 cap 01/12/22 Unknown Rx Allergies Allergy/AdvReac Type Severity Reaction Status Date / Time No Known Allergies Allergy Verified 01/12/22 13:30 ED Review of Systems ROS: Stated complaint: UNABLE TO URINATE X4HRS Other details as noted in HPI Comment: All other systems reviewed and negative Constitutional: denies: chills, fever Eyes: denies: eye pain, eye discharge, vision change ENT: denies: ear pain, throat pain Respiratory: denies: cough, shortness of breath, wheezing Cardiovascular: denies: chest pain, palpitations Endocrine: no symptoms reported Gastrointestinal: denies: abdominal pain, nausea, diarrhea Genitourinary: other (Renal retention). denies: urgency, dysuria Musculoskeletal: denies: back pain, joint swelling, arthralgia Skin: denies: rash, lesions Neurological: denies: headache, weakness, paresthesias Psychiatric: denies: anxiety, depression Hematological/Lymphatic: denies: easy bleeding, easy bruising ED Past Medical Hx - Past Medical History Hx Hypertension: Yes Hx CVA: No Hx Heart Attack/AMI: No Hx Congestive Heart Failure: No Hx Diabetes: Yes Hx Deep Vein Thrombosis: No Hx Pulmonary Embolism: No Hx GERD: No Hx Liver Disease: No Hx Renal Disease: No Hx Sickle Cell Disease: No Hx Arthritis: Yes (JOINTS) Hx Headaches / Migraines: No Hx Seizures: No Hx Kidney Stones: No Hx Psychiatric Treatment: No Hx Asthma: No Hx COPD: No Hx Tuberculosis: No Hx Dementia: No Hx HIV: No - Surgical History Hx Pacemaker: No Additional Surgical History: Removal of left great toe toenail 06/06/2019 - Social History Smoking Status: Former Smoker - Medications Home Medications: Home Medications Medication Instructions Recorded Confirmed Last Taken Type metFORMIN XR [Glucophage XR] 500 mg PO QDDIAB #30 tablet 06/13/19 11/25/21 11/22/21 Rx Insulin Aspart (Nf) [NovoLOG 12 units SQ TIDAC 11/25/21 11/25/21 Unknown History Flexpen] Insulin Glargine,Hum.rec.anlog 42 unit SQ HS 11/25/21 11/25/21 Unknown History [Lantus Solostar] Ferrous Sulfate [Feosol 325 MG tab] 325 mg PO QDAY 30 Days #30 tablet 12/02/21 11/25/21 11/22/21 Rx Furosemide [Lasix TAB] 40 mg PO QDAY #30 tablet 12/02/21 Unknown Rx Isosorb Dinit/Hydralazine [Bidil 1 each PO Q8HR #90 tablet 12/02/21 Unknown Rx 20/37.5MG] Loperamide [Imodium] 2 mg PO Q2H #30 capsule 12/02/21 Unknown Rx Tamsulosin [Flomax] 0.4 mg PO QDAY #90 cap 12/02/21 Unknown Rx carvediloL [Coreg] 3.125 mg PO BID #60 tablet 12/02/21 11/25/21 11/22/21 Rx Tamsulosin [Flomax] 0.4 mg PO QDAY #30 cap 01/12/22 Unknown Rx ED Physical Exam - General Limitations: No Limitations General appearance: alert, in no apparent distress - Head Head exam: Present: atraumatic, normocephalic - Eye Eye exam: Present: normal appearance - ENT ENT exam: Present: mucous membranes moist - Neck Neck exam: Present: normal inspection - Respiratory Respiratory exam: Present: normal lung sounds bilaterally. Absent: respiratory distress - Cardiovascular Cardiovascular Exam: Present: regular rate, normal rhythm. Absent: systolic murmur, diastolic murmur, rubs, gallop - GI/Abdominal GI/Abdominal exam: Present: soft, tenderness, normal bowel sounds, other (Tender palpation of suprapubic region with distention of the bladder on exam) - Rectal Rectal exam: Present: deferred - Extremities Exam Extremities exam: Present: normal inspection - Back Exam Back exam: Present: normal inspection - Neurological Exam Neurological exam: Present: alert, oriented X3 - Psychiatric Psychiatric exam: Present: normal affect, normal mood - Skin Skin exam: Present: warm, dry, intact, normal color. Absent: rash ED Course Vital Signs 01/12/22 01/12/22 01/12/22 13:20 13:41 13:42 Temperature 97.3 F L 97.3 F L Pulse Rate 91 H 91 H Respiratory 18 Rate Blood Pressure 152/78 152/78 [Left] O2 Sat by Pulse 97 97 97 Oximetry ED Medical Decision Making - Medical Decision Making The patient Lord was flushed with good flow of urine into the Lord bag Critical care attestation.: If time is entered above; I have spent that time in minutes in the direct care of this critically ill patient, excluding procedure time. ED Disposition Clinical Impression: Urinary retention Disposition: HOME / SELF CARE / HOMELESS Is pt being admited?: No Does the pt Need Aspirin: No Condition: Stable Instructions: Acute Urinary Retention, Male Additional Instructions: return if worse Prescriptions: Tamsulosin [Flomax] 0.4 mg PO QDAY #30 cap Referrals: LAURIE FAUSTIN MD [Staff Physician] - 3-5 Days Time of Disposition: 14:08
== END 2022-01-12 15:28 | disposition home or self-care (01) ==
LOC: ED 13:20
DX: R33.9 Retention of urine, unspecified (principal); I10 Essential (primary) hypertension; E11.9 Type 2 diabetes mellitus without complications; M19.90 Unspecified osteoarthritis, unspecified site; Z87.891 Personal history of nicotine dependence
CPT/HCPCS: 99283